=== PATIENT | female | born 1950 | race Caucasian/White ===

== ENCOUNTER 2016-04-08 09:44 | Inpatient (IN) | payer OTHER, BC ==
[~2016-04-08] VITALS: Ht 165.1 cm; Wt 96.6 kg
[~2016-04-08 09:44] MED LIST: ASPI81TA21 PO; ATOR-26 PO; CLB/200 PO; CLOP1TAB15 PO; CLR10 PO; EZET10TA63 PO; FLUO20CA35 PO; GLIP-197 PO; LANS30CA12 PO; METO1TAB69 PO; POTA20TA16 PO; PRM/45 PO; [UNRECOGNIZED DRUG - CODE] PO
[2016-04-08] MEDS ORDERED: MoRPHine SULFATE 4 MG/ML 1 ML CARP\\VIAL IV PRN (10:15)
[2016-04-08 10:18] LABS: BASO % 0.6 %; BASO ABS # 0.06 K/uL (0-0.2); COMPLETE YES; EOS % 1.8 %; HEMATOCRIT 34.3 % (37-47); IG% 0.7 %; LYMPH % 16.9 %; LYMPH ABS # 1.72 K/uL (1.2-3.4); MEAN CORPUSCULAR HGB CONC 34.4 g/dl (32-36); MEAN PLATELET VOLUME 12.1 fL (7.4-10.4); MONO % 7.7 %; NEUT % 72.3 %; PLATELET COUNT 234 K/uL (130-400); RED BLOOD COUNT 3.69 M/uL (4.2-5.4); WHITE BLOOD COUNT 10.15 K/uL (4.8-10.8)
[2016-04-08] MEDS ORDERED: LOSA100T66 PO (10:27)
[2016-04-08] MEDS ORDERED: PANTOprazole INJ 80 MG in DEXTROSE 5% 100ML IV SCH (10:30)
[2016-04-08 10:31] LABS: BUN/CREATININE RATIO 39.6 (10-20); CALCIUM 9.8 mg/dl (8.5-10.1); CREATININE 1.5 mg/dl (0.60-1.20); POTASSIUM 3.7 mmol/L (3.5-5.1)
[2016-04-08 10:33] LABS: PROTHROMBIN TIME (PATIENT) 10.7 SECONDS (9.0-12.0)
--- NOTE | 2016-04-08 10:43 | DIAGNOSTIC IMAGING REPORT ---
CHEST ONE VIEW PORTABLE CLINICAL HISTORY: Gastrointestinal hemorrhage COMPARISON STUDY: 12/26/2007 FINDINGS: The cardiac and mediastinal contours are normal. There is no evidence of focal pulmonary consolidation. There is no evidence of failure. No pleural effusions are visualized.[ No free air is visualized. IMPRESSION: No active disease in the chest. Electronically signed by: Logan Burnett M.D. 04/08/2016 10:42 AM Dictated Date/Time: 04/08/2016 10:41 AM
[2016-04-08] MEDS ORDERED: PANTOprazole INJ 40 MG in DEXTROSE 5% 100ML IV SCH (10:45)
--- NOTE | 2016-04-08 10:46 | EMERGENCY ROOM VISIT NOTE ---
History Report prepared by Silvia: Rayna Chatman Under the Supervision of: Dr. Germain Mchugh M.D. First contact with patient: 09:57 Chief Complaint: GI ASSESSMENT Stated Complaint: 4 TARRY STOOLS SINCE MIDNIGHT Nursing Triage Summary: Pt reports four tarry stools since midnight. Denies previous hx of same. Pt takes Plavix and ASA. Pt reports abd pain. Denies n/v. Mild sob, weak. History of Present Illness The patient is a 65 year old female who presents to the Emergency Room with complaints of persistently tarry stools starting last night. She also complains of right sided abdominal pain and a bloated abdomen. She denies any history of GI bleed. The patient is on Aspirin and Plavix. She denies fevers, chills, chest pain, shortness of breath, or any other complaints. Source of History: patient Onset: last night Position: other (global) Quality: other (tarry stools) Timing: other (persistent) Associated Symptoms: + abdominal pain, No SOB, No chest pain, No chills, No fevers Review of Systems See HPI for pertinent positives & negatives. A total of 10 systems reviewed and were otherwise negative. Past Medical & Surgical Medical Problems: (1) Acid reflux (2) Asthma (3) Depression (4) Diabetes (5) Heart disease (6) High cholesterol (7) Hypertension (8) Melena (9) Myocardial infarction Family History Patient reports no known family medical history. Social History Smoking Status: Never Smoker Marital Status: Occupation Status: retired Current/Historical Medications Scheduled Aspirin Enteric Coated (Ecotrin Or Generic), 81 MG PO DAILY Atorvastatin (Lipitor), 80 MG PO DAILY Celecoxib (CeleBREX), 200 MG PO DAILY Clopidogrel (Plavix), 75 MG PO DAILY Ezetimibe (Zetia), 10 MG PO DAILY Fluoxetine (Prozac), 20 MG PO DAILY Glipizide (Glipizide Er), 5 MG PO DAILY Loratadine (Claritin), 10 MG PO DAILY Losartan Potassium & Hydrochlo (Losartan Potassium/Hydroc), 1 TAB PO DAILY Metoprolol Succ (Toprol Xl) (Toprol-Xl ), 100 MG PO DAILY Potassium Ext Rel (Klor-Con), 20 MEQ PO DAILY Allergies Coded Allergies: Bae Pepper (Verified Allergy, Mild, RASH, 04/08/16) Physical Exam Vital Signs Date Time Temp Pulse Resp B/P Pulse Ox O2 Delivery O2 Flow Rate FiO2 04/08/16 13:24 73 04/08/16 13:04 95 Room Air 04/08/16 12:55 68 16 124/64 96 Room Air 04/08/16 11:32 79 20 147/85 97 Room Air 04/08/16 10:50 80 18 134/66 94 Room Air 04/08/16 10:20 90 04/08/16 09:48 36.9 96 18 145/82 97 Room Air Physical Exam CONSTITUTIONAL: No acute distress HEENT: No icterus, moist mucous membranes NECK: No meningismus, trachea is midline. CARDIOVASCULAR: Regular rate, normal perfusion RESPIRATORY: Unlabored breathing. Clear to auscultation. GASTROINTESTINAL: Non-tender GENITOURINARY: No flank tenderness RECTAL: Tarry stool clearly, grossly very heme positive. MUSCULOSKELETAL: Full range of motion NEUROLOGIC: No acute gross focal deficits. PSYCHIATRIC: Normal affect SKIN: Normal for ethnicity. Medical Decision & Procedures ER Provider Diagnostic Interpretation: X-ray results as stated below per interpretation by me and the radiologist. CHEST ONE VIEW PORTABLE CLINICAL HISTORY: Gastrointestinal hemorrhage COMPARISON STUDY: 12/26/2007 FINDINGS: The cardiac and mediastinal contours are normal. There is no evidence of focal pulmonary consolidation. There is no evidence of failure. No pleural effusions are visualized.[ No free air is visualized. IMPRESSION: No active disease in the chest. Electronically signed by: Logan Burnett M.D. 04/08/2016 10:42 AM Dictated Date/Time: 04/08/2016 10:41 AM Laboratory Results 04/08/16 09:58 Red Blood Count 3.69, Mean Corpuscular Volume 93.0, Mean Corpuscular Hemoglobin 32.0, Mean Corpuscular Hemoglobin Concent 34.4, Mean Platelet Volume 12.1, Neutrophils (%) (Auto) 72.3, Lymphocytes (%) (Auto) 16.9, Monocytes (%) (Auto) 7.7, Eosinophils (%) (Auto) 1.8, Basophils (%) (Auto) 0.6, Neutrophils # (Auto) 7.34, Lymphocytes # (Auto) 1.72, Monocytes # (Auto) 0.78, Eosinophils # (Auto) 0.18, Basophils # (Auto) 0.06 04/08/16 09:58 Test 04/08/16 09:58 04/08/16 10:10 White Blood Count 10.15 K/uL (4.8-10.8) Red Blood Count 3.69 M/uL (4.2-5.4) Hemoglobin 11.8 g/dL (12.0-16.0) Hematocrit 34.3 % (37-47) Mean Corpuscular Volume 93.0 fL (80-100) Mean Corpuscular Hemoglobin 32.0 pg (25-34) Mean Corpuscular Hemoglobin Concent 34.4 g/dl (32-36) Platelet Count 234 K/uL (130-400) Mean Platelet Volume 12.1 fL (7.4-10.4) Neutrophils (%) (Auto) 72.3 % Lymphocytes (%) (Auto) 16.9 % Monocytes (%) (Auto) 7.7 % Eosinophils (%) (Auto) 1.8 % Basophils (%) (Auto) 0.6 % Neutrophils # (Auto) 7.34 K/uL (1.4-6.5) Lymphocytes # (Auto) 1.72 K/uL (1.2-3.4) Monocytes # (Auto) 0.78 K/uL (0.11-0.59) Eosinophils # (Auto) 0.18 K/uL (0-0.5) Basophils # (Auto) 0.06 K/uL (0-0.2) RDW Standard Deviation 43.0 fL (36.4-46.3) RDW Coefficient of Variation 12.8 % (11.5-14.5) Immature Granulocyte % (Auto) 0.7 % Immature Granulocyte # (Auto) 0.07 K/uL (0.00-0.02) Prothrombin Time 10.7 SECONDS (9.0-12.0) Prothromb Time International Ratio 1.0 (0.9-1.1) Activated Partial Thromboplast Time 25.0 SECONDS (21.0-31.0) Partial Thromboplastin Ratio 1.0 Anion Gap 9.0 mmol/L (3-11) Est Creatinine Clear Calc Drug Dose 43.1 ml/min Estimated GFR () 41.6 Estimated GFR (Non- 35.9 BUN/Creatinine Ratio 39.6 (10-20) Calcium Level 9.8 mg/dl (8.5-10.1) Hepatitis C Antibody Screen NEG (NEG) Stool Occult Blood POSITIVE (NEGATIVE) Labs reviewed by ED physician. Medications Administered Medications (Trade) Dose Ordered Sig/Asia Route Start Time Stop Time Status Last Admin Dose Admin Pantoprazole Sodium 1 ea 1 ea NOW STAT IV 04/08/16 10:13 04/08/16 10:16 DC 04/08/16 10:48 1 EA Pantoprazole Sodium 80 mg/ Dextrose 120 ml @ 480 mls/hr TODAY@1030 IV 04/08/16 10:30 04/08/16 10:44 DC 04/08/16 10:48 480 MLS/HR Pantoprazole Sodium/Dextrose (Protonix Inj/D5 100ml) 100 ml @ 20 mls/hr Q5H IV 04/08/16 10:45 04/08/16 15:44 DC 04/08/16 11:15 20 MLS/HR Benzocaine/ Butamben/ Tetracaine HCl (Cetacaine Lyford) 200 appln STK-MED ONCE .ROUTE 04/08/16 11:21 04/08/16 11:23 DC 04/08/16 11:21 200 APPLN Ondansetron HCl (Zofran Inj) 4 mg NOW STAT IV 04/08/16 12:37 04/08/16 12:38 DC 04/08/16 12:52 4 MG ECG Indication: other (tarry stools) Rate (beats per minute): 84 Rhythm: sinus rhythm Findings: nonspecific-ST abn, no ectopy, other (normal axis) ED Course 0957: Past medical records reviewed. The patient was evaluated in room C09. A complete history and physical examination was performed. 1013: Pantoprazole Sodium 1 ea IV 1015: Morphine Sulfate 4 mg IV 1030: Pantoprazole Sodium 80 mg/Dextrose 120 ml @ 480 mls/hr IV 1045: Pantoprazole Sodium 40 mg/Dextrose 100 ml @ 20 mls/hr IV 1102: I discussed the patient's case with Dr. Mena, venipuncturist with [facility]. 1121: Cetacaine Lyford 200 appln PO 1131: NG tube is negative for upper GI bleed. 1237: Zofran Inj 4 mg IV 1255: Upon reexamination the patient is resting comfortably. I discussed results and treatment plan with the patient. She verbalizes agreement and understanding. I spoke with Dr. Vidal from the [facility]. The patient will be evaluated for further management. Medical Decision Differential diagnosis: Etiologies such as diverticulosis, AVM, coagulopathy, colitis, inflammatory bowel disease, malignancy, Blanche-Ibarra tear, esophagitis, peptic ulcer disease , variceal bleed, gastritis, epistaxis, fissure, hemorrhoids, as well as others were entertained. 65-year-old on aspirin and Plavix presents to the emergency room for dense melena over the last 12 hours. Stool very heme positive. NG tube placed without coffee grounds or bright red blood emesis subsequently removed. Protonix drip ordered patient management medically stable. Admission arranged with [facility] service and consultation obtained with gastroenterology for endoscopy. Consults Time Called: 1100 Consulting Physician: Dr. Mena, venipuncturist with [facility] Returned Call: 1102 I discussed the patient's case with Dr. Mena, venipuncturist with [facility]. Additional Consults: Time Called: 1254 Consulted Physician: Dr. Vidal from the [facility] Service Returned Call: 1255 Additional Comments: I spoke with Dr. Vidal from the [facility]. Impression Primary Impression: Upper GI bleed Critical Care I have personally spent greater than 30 minutes of critical care time in the direct management of this patient. This includes bedside care, interpretation of diagnostic studies, and testing, discussion with consultants, patient, and family members, and other required patient management activities. This 30 minutes is in excess of all separately billable procedures. Scribe Attestation The scribe's documentation has been prepared under my direction and personally reviewed by me in its entirety. I confirm that the note above accurately reflects all work, treatment, procedures, and medical decision making performed by me. Departure Information Dispostion Being Evaluated By Hospitalist Referrals Clint Boo M.D. (PCP) Patient Instructions My [facility]
[2016-04-08] MEDS ORDERED: BENZOCAIN/TETRACA/BUTAM SPRAY 200 APPLN/20 GM SPRY ONE (11:21)
[2016-04-08] MEDS ORDERED: ONDANSETRON INJ 2 MG/ML 2 ML VIAL IV STA (12:37)
--- NOTE | 2016-04-08 12:38 | GASTROINTESTINAL CONSULTATION ---
DATE OF CONSULTATION: 04/08/2016 DATE OF CONSULTATION: 04/08/2016. REASON FOR EVALUATION: Melena. HISTORY OF PRESENT ILLNESS: The patient is a 65-year-old with coronary disease, status post NM 10 years ago on baby aspirin and Plavix daily. She is on no gastric protective mechanisms but does take occasional Zantac if she gets some reflux which aggravates her asthma. She reports a little bit of epigastric and right upper quadrant pain. On a scale of 10 it is rated as a 3 that started a day or so ago. Last evening she began to experience melena. She has had 5 episodes. She reports no syncopal or presyncopal symptoms. Her stools are quite black and sticky. She has had no hematemesis, no previous history of ulcer disease. PAST MEDICAL HISTORY: Remarkable for coronary disease, status post NM with stent. She has had asthma, acid reflux, elevated lipids, diabetes. MEDICATIONS: Per list. ALLERGIES: None. FAMILY HISTORY: Noncontributory. SOCIAL HISTORY: The patient is . She is a retired nurse from [employer]. She does not smoke. Drinks alcohol rarely. REVIEW OF SYSTEMS: Negative for 12 systems. PHYSICAL EXAMINATION: GENERAL: The patient appears in no acute distress. VITAL SIGNS: Normal. She is afebrile. ABDOMEN: Shows low transverse scar from previous hysterectomy. Bowel sounds are normal. Mild tenderness in the epigastric area. No masses appreciated. LUNGS: Clear. HEART: Showed a normal S1 and S2 with regular rate and rhythm without murmurs, rubs, or gallops. IMPRESSION: The patient has melena probably from an ulcer in the stomach or duodenum from her aspirin bleeding potentiated by Plavix. She is currently getting IV Protonix. I plan on scheduling her for an EGD later today for further evaluation. Plavix will be held in the meantime.
[2016-04-08 13:04] VITALS: O2SAT 95; Ht 165.1 cm; Wt 96.6 kg
[2016-04-08] MEDS ORDERED: ACETAMINOPHEN 325 MG TAB PO PRN (13:45)
[2016-04-08] MEDS ORDERED: ONDANSETRON INJ 2 MG/ML 2 ML VIAL IV PRN (13:45)
[2016-04-08] MEDS ORDERED: GLUCOSE 40% GEL 15 GM TUBE PO PRN (13:45)
[2016-04-08] MEDS ORDERED: DEXTROSE 50% 50 ML SYR IV PRN (13:45)
[2016-04-08] MEDS ORDERED: GLUCAGON FOR INJ 1 MG VIAL SQ PRN (13:45)
[2016-04-08] MEDS ORDERED: GLUCOSE 10 TABS/TUBE PO PRN (13:45)
[2016-04-08] MEDS ORDERED: POLYETHYLENE (MIRALAX) 17 GM PACK PO PRN (13:45)
[2016-04-08] MEDS ORDERED: MAGNESIUM HYDROXIDE SUSP 30 ML UDC PO PRN (13:45)
[2016-04-08] MEDS ORDERED: ALUMINUM/MAGNESIUM/SIMETH (MAALOX MAX) 30 ML UDC PO PRN (13:45)
[2016-04-08] MEDS ORDERED: HydrALAZINE HCL 20 MG/ML VIAL IV. PRN (14:00)
[2016-04-08] MEDS ORDERED: HYDROCORTISONE 1% CR 30 GM TUBE EXT PRN (14:00)
--- NOTE | 2016-04-08 14:02 | History and Physical ---
History & Physical Date & Time of Service: Apr 08, 2016 at 13:50 Chief Complaint: 4 Tarry Stools Since Midnight Primary Care Physician: Clint Boo M.D. History of Present Illness Source: patient, spouse Ms Lopez is a 65 y/o female with PMHx of CAD with VT and S/P Stent x 1, T2DM, HLD, HTN, Asthma, and Hemorrhoids who presents to the ED c/o dark tarry stools that started last night. She repeats RUQ pain that extends to the epigastric region that initially felt sharp but now is more of an ache. She reports associated bloating distention throughout her abdomen. She has had a total of 5 melanotic BMs. She currently take Celebrex, ASA, and Plavix daily. She does take Zantac PRN but only for heartburn symptoms and not prophylactic treatment. She denies H/O PUD. She reports some VILLAFANA while showering PHYS THER but otherwise no complaints of SOB. Reports in February she had sinusitis that required prolonged antibiotic use but all symptoms resolved. She does report history of blood clot in her leg with many years prior but denies other blood clots or PEs. She denies fever/chills, CP, SOB, N/V, diarrhea/constipation, hematochezia. In the ED, she is afebrile without leukocytosis. She is hemodynamically stable. EKG with NSR without evidence of acute ischemic changes. CXR without evidence of an infectious process. She was evaluated by GI with plans for endoscopy today. She will be admitted to telemetry following EGD for further evaluation and care. Past Medical/Surgical History Medical Problems: (1) Acid reflux Status: Chronic (2) Asthma Status: Chronic (3) Depression Status: Chronic (4) Diabetes Status: Chronic (5) Heart disease Status: Chronic (6) High cholesterol Status: Chronic (7) Hypertension Status: Chronic (8) Myocardial infarction Status: Resolved Family History Patient reports no known family medical history. Social History Smoking Status: Never Smoker Smokeless Tobacco Use: No Alcohol Use: socially Drug Use: none Marital Status: Occupational Status: retired Multi-Drug Resistant Organisms History of MDRO: No Allergies Coded Allergies: Bae Pepper (Verified Allergy, Mild, RASH, 04/08/16) Home Medications Scheduled Aspirin Enteric Coated (Ecotrin Or Generic), 81 MG PO DAILY Atorvastatin (Lipitor), 80 MG PO DAILY Celecoxib (CeleBREX), 200 MG PO DAILY Clopidogrel (Plavix), 75 MG PO DAILY Ezetimibe (Zetia), 10 MG PO DAILY Fluoxetine (Prozac), 20 MG PO DAILY Glipizide (Glipizide Er), 5 MG PO DAILY Loratadine (Claritin), 10 MG PO DAILY Losartan Potassium & Hydrochlo (Losartan Potassium/Hydroc), 1 TAB PO DAILY Metoprolol Succ (Toprol Xl) (Toprol-Xl ), 100 MG PO DAILY Potassium Ext Rel (Klor-Con), 20 MEQ PO DAILY Review of Systems Constitutional: No chills, No fever Eyes: No worsening of vision ENT: No sore throat, No trouble swallowing Respiratory: + dyspnea on exertion (resolved ), No cough, No shortness of breath Cardiovascular: No chest pain Abdomen: + GI bleeding (melena x 5 episodes), + pain (RUQ and epigastric tenderness and distention), No constipation, No diarrhea, No nausea, No vomiting Musculoskeletal: No calf pain, No swelling Genitourinary - Female: No dysuria Neurologic: No weakness Hematologic / Lymphatic: No abnormal bleeding/bruising, No clotting problems Integumentary: No rash Physical Exam Vital Signs Date Time Temp Pulse Resp B/P Pulse Ox O2 Delivery O2 Flow Rate FiO2 04/08/16 13:24 73 04/08/16 13:04 95 Room Air 04/08/16 12:55 68 16 124/64 96 Room Air 04/08/16 11:32 79 20 147/85 97 Room Air 04/08/16 10:50 80 18 134/66 94 Room Air 04/08/16 10:20 90 04/08/16 09:48 36.9 96 18 145/82 97 Room Air General Appearance: WD/WN, no apparent distress Head: normocephalic, atraumatic Eyes: sclerae normal ENT: hearing grossly normal Neck: supple, no JVD, trachea midline Respiratory/Chest: lungs clear, normal breath sounds, no respiratory distress, no accessory muscle use Cardiovascular: regular rate, rhythm, no gallop, no murmur Abdomen/GI: normal bowel sounds, soft, + tenderness (epigastric region) Back: normal inspection, no CVA tenderness Extremities/Musculoskelatal: no calf tenderness, no pedal edema Neurologic/Psych: alert, oriented x 3 Skin: normal color, warm/dry Diagnostics Laboratory Results Results Past 24 Hours Test 04/08/16 09:58 04/08/16 10:10 Range/Units White Blood Count 10.15 4.8-10.8 K/uL Red Blood Count 3.69 4.2-5.4 M/uL Hemoglobin 11.8 12.0-16.0 g/dL Hematocrit 34.3 37-47 % Mean Corpuscular Volume 93.0 80-100 fL Mean Corpuscular Hemoglobin 32.0 25-34 pg Mean Corpuscular Hemoglobin Concent 34.4 32-36 g/dl Platelet Count 234 130-400 K/uL Mean Platelet Volume 12.1 7.4-10.4 fL Neutrophils (%) (Auto) 72.3 % Lymphocytes (%) (Auto) 16.9 % Monocytes (%) (Auto) 7.7 % Eosinophils (%) (Auto) 1.8 % Basophils (%) (Auto) 0.6 % Neutrophils # (Auto) 7.34 1.4-6.5 K/uL Lymphocytes # (Auto) 1.72 1.2-3.4 K/uL Monocytes # (Auto) 0.78 0.11-0.59 K/uL Eosinophils # (Auto) 0.18 0-0.5 K/uL Basophils # (Auto) 0.06 0-0.2 K/uL RDW Standard Deviation 43.0 36.4-46.3 fL RDW Coefficient of Variation 12.8 11.5-14.5 % Immature Granulocyte % (Auto) 0.7 % Immature Granulocyte # (Auto) 0.07 0.00-0.02 K/uL Prothrombin Time 10.7 9.0-12.0 SECONDS Prothromb Time International Ratio 1.0 0.9-1.1 Activated Partial Thromboplast Time 25.0 21.0-31.0 SECONDS Partial Thromboplastin Ratio 1.0 Sodium Level 142 136-145 mmol/L Potassium Level 3.7 3.5-5.1 mmol/L Chloride Level 108 98-107 mmol/L Carbon Dioxide Level 25 21-32 mmol/L Anion Gap 9.0 3-11 mmol/L Blood Urea Nitrogen 59 7-18 mg/dl Creatinine 1.50 0.60-1.20 mg/dl Est Creatinine Clear Calc Drug Dose 43.1 ml/min Estimated GFR () 41.6 Estimated GFR (Non- 35.9 BUN/Creatinine Ratio 39.6 10-20 Random Glucose 273 70-99 mg/dl Calcium Level 9.8 8.5-10.1 mg/dl Stool Occult Blood POSITIVE NEGATIVE Diagnostic Radiology CHEST ONE VIEW PORTABLE CLINICAL HISTORY: Gastrointestinal hemorrhage COMPARISON STUDY: 12/26/2007 FINDINGS: The cardiac and mediastinal contours are normal. There is no evidence of focal pulmonary consolidation. There is no evidence of failure. No pleural effusions are visualized.[ No free air is visualized. IMPRESSION: No active disease in the chest. EKG Poor data quality, interpretation may be adversely affected Normal sinus rhythm Nonspecific ST abnormality Abnormal ECG When compared with ECG of 26-DEC-2007 16:50, No significant change was found Impression Assessment and Plan Ms Lopez is a 65 y/o female with PMHx of CAD with VT and S/P Stent x 1, T2DM, HLD, HTN, Asthma, and Hemorrhoids with melena x 5 episodes. EGD on 04/08/16 Melena: Likely Peptic Ulcer/Duodenal Ulcer: - Likely this is due to the Celebrex and ASA combination with the addition of Plavix - Protonix gtt - Hold ASA, Celebrex, and Plavix - GI Following - EGD today HTN: - Hold Losartan/HCTZ - Metoprolol Succ 100 mg daily - Hydralazine 10 mg IV PRN T2DM: - Glipizide 5 mg daily when diet added - SSI goal range 100-150 with correction factor 35 CAD with VT S/P Stent x 1: - Hold ASA and Plavix - Atorvastatin 80 mg daily - Zetia 10 mg daily DVT Prophylaxis: - KIERSTEN/SCDs Disposition: - Plan for EGD ASA Classification: ASA Class III Level of Care Telemetry Advanced Directives Existing Living Will: No Existing Power of Advertising Sales Consultant: No Resuscitation Status FULL RESUSCITATION VTE Prophylaxis VTE Risk Assessment Done? Y/N: Yes Risk Level: Moderate Given or contraindicated: T.E.D. Stockings, SCD's
--- NOTE | 2016-04-08 14:16 | Endo History and Physical ---
History & Physical Date of Service: Apr 08, 2016. Chief Complaint: Melena Referring Physician: Dr. Boo History of Present Illness Melena for EGD Past Surgical History Hx Cardiac Surgery: Yes (Stent (2004)) Hx Internal Defibrillator: No Hx Pacemaker: No Hx Abdominal Surgery: No Hx Post-Op Nausea and Vomiting: No Hx Cancer Surgery: No Hx Thoracic Surgery: No Hx Orthopedic: No Hx Urinary Tract Surgery: No Social History Smoking Status: Never Smoker Smokeless Tobacco Use: No Hx Substance Use: No Hx Alcohol Use: Yes (Wine: Occasional) Allergies Coded Allergies: Bae Pepper (Verified Allergy, Mild, RASH, 04/08/16) Current Medications Reported Home Medications Medications Dose Route/Sig Max Daily Dose Days Date Category Dose Instructions Losartan Potassium/Hydroc (Losartan Potassium & Hydrochlo) 1 Tab Tab 1 Tab PO DAILY 90 04/08/16 Reported 100/12.5MG Claritin (Loratadine) 10 Mg Tab 10 Mg PO DAILY 07/11/13 Reported Zetia (Ezetimibe) 10 Mg Tab 10 Mg PO DAILY 07/10/13 Reported Glipizide Er (Glipizide) 5 Mg Tab 5 Mg PO DAILY 07/10/13 Reported CeleBREX (Celecoxib) 200 Mg Cap 200 Mg PO DAILY 07/10/13 Reported Ecotrin Or Generic (Aspirin) 81 Mg Tab 81 Mg PO DAILY 07/10/13 Reported Plavix (Clopidogrel Bisulfate) 75 Mg Tab 75 Mg PO DAILY 01/10/08 Reported Prozac (Fluoxetine HCl) 20 Mg Cap 20 Mg PO DAILY 01/10/08 Reported Lipitor (Atorvastatin Calcium) 80 Mg Tab 80 Mg PO DAILY 01/10/08 Reported Klor-Con (Potassium Chloride) 20 Meq Tabcr 20 Meq PO DAILY 01/10/08 Reported Toprol-Xl (Metoprolol Succinate) 100 Mg Tabcr 100 Mg PO DAILY 01/10/08 Reported Vital Signs Weight (Kilograms): 99.700 Height (Feet): 5 Height (Inches): 5.00 Date Time Temp Pulse Resp B/P Pulse Ox O2 Delivery O2 Flow Rate FiO2 04/08/16 13:54 75 16 130/56 97 Room Air 04/08/16 13:24 73 04/08/16 13:04 95 Room Air 04/08/16 12:55 68 16 124/64 96 Room Air 04/08/16 11:32 79 20 147/85 97 Room Air 04/08/16 10:50 80 18 134/66 94 Room Air 04/08/16 10:20 90 04/08/16 09:48 36.9 96 18 145/82 97 Room Air Physical Exam General Appearance: WD/WN Respiratory/Chest: Respiratory effort: no dyspnea Cardiovascular: Heart Auscultation: RRR Abdomen: Bowel Sounds: pertinent finding (Transverse scar) Inspection & Palpation: soft Assessment and Plan Melena for EGD
--- NOTE | 2016-04-08 14:35 | Discharge Instructions ---
Endoscopy Patient Instructions Date / Procedure(s) Performed Apr 08, 2016. EGD Allergy Information Coded Allergies: Bae Pepper (Verified Allergy, Mild, RASH, 04/08/16) Discharge Date / Findings Apr 08, 2016. Antral ulcers Medication Instructions Restart Stopped Medication(s): resume meds Current Inpatient Medications Medications (Trade) Dose Ordered Sig/Asia Route Start Time Stop Time Status Last Admin Dose Admin Morphine Sulfate 4 mg 4 mg ONE PRN IV 04/08/16 10:15 04/22/16 10:14 Pantoprazole Sodium/Dextrose (Protonix Inj/D5 100ml) 100 ml @ 20 mls/hr Q5H IV 04/08/16 10:45 04/08/16 15:44 04/08/16 11:15 20 MLS/HR Acetaminophen (Tylenol Tab) 650 mg Q4H PRN PO 04/08/16 13:45 05/08/16 13:44 Al Hydrox/Mg Hydrox/Simethicone (Maalox Max Susp) 15 ml Q4H PRN PO 04/08/16 13:45 05/08/16 13:44 Magnesium Hydroxide (Milk Of Magnesia Susp) 30 ml Q12H PRN PO 04/08/16 13:45 05/08/16 13:44 UNV Ondansetron HCl (Zofran Inj) 4 mg Q6H PRN IV 04/08/16 13:45 05/08/16 13:44 Polyethylene (Miralax Powder Packet) 17 gm DAILY PRN PO 04/08/16 13:45 05/08/16 13:44 Insulin Aspart (novoLOG ASPART) SLIDING SCALE If C... ACHS SC 04/08/16 16:00 05/08/16 15:59 UNV Glucose (Glucose 40% Gel) 15-30 GRAMS 15 GRAMS... UD PRN PO 04/08/16 13:45 05/08/16 13:44 Glucose (Glucose Chew Tab) 4-8 Tablets 4 Tabl... UD PRN PO 04/08/16 13:45 05/08/16 13:44 Dextrose (Dextrose 50% 50ML Syringe) 25-50ML OF 50% DW IV FOR... UD PRN IV 04/08/16 13:45 05/08/16 13:44 Glucagon (Glucagon Inj) 1 mg UD PRN SQ 04/08/16 13:45 05/08/16 13:44 Atorvastatin Calcium (Lipitor Tab) 80 mg DAILY PO 04/09/16 09:00 05/09/16 08:59 UNV EZETIMIBE (Zetia Tab) 10 mg DAILY PO 04/09/16 09:00 05/09/16 08:59 UNV Fluoxetine HCl (Prozac Cap) 20 mg DAILY PO 04/09/16 09:00 05/09/16 08:59 UNV Glipizide (GlipiZIDE EXTENDED REL TAB) 5 mg DAILY PO 04/09/16 09:00 05/09/16 08:59 UNV Loratadine (Claritin Tab) 10 mg DAILY PO 04/09/16 09:00 05/09/16 08:59 UNV Metoprolol Succinate (Toprol Xl Tab) 100 mg DAILY PO 04/09/16 09:00 05/09/16 08:59 UNV Potassium Chloride (Klor-Con Tab) 20 meq DAILY PO 04/09/16 09:00 05/09/16 08:59 UNV Hydralazine HCl (HydrALAZINE INJ) 10 mg Q6 PRN IV. 04/08/16 14:00 05/08/16 13:59 UNV Hydrocortisone 1 appln 1 appln Q6H PRN EXT 04/08/16 14:00 05/08/16 13:59 UNV Pantoprazole Sodium/Dextrose (Protonix Inj/D5 100ml) 100 ml @ 20 mls/hr Q5H IV 04/08/16 14:15 05/08/16 14:14 UNV Provider Instructions Activity Restrictions - No exercising or heavy lifting for 24 hours. - Do not drink alcohol the day of the procedure. - Do not drive a car or operate machinery until the day after the procedure. - Do not make any important decisions or sign important papers in 24 hours after the procedure. Following Day: - Return to full activity which may include returning to work/school. Diet Start your diet with liquids and light foods (jello, soup, juice, toast). Then eat your usual diet if not nauseated. Treatment For Common After Affects For mild abdominal pain, bloating, or excessive gas: - Rest - Eat lightly - Lie on right side Follow-Up Information Follow-up with as scheduled Anesthesia Information What You Should Know You have had a procedure that required some medicine to reduce anxiety and discomfort. This treatment is called moderate sedation. After receiving the treatment, you may be sleepy, but you will be able to breathe on your own. The effects of the treatment may last for several hours. Follow these instructions along with Activity/Diet recommendations noted above: * Do NOT do anything where dizziness or clumsiness would be dangerous. * Rest quietly at home today, then you can be up and about tomorrow. * Have a responsible person stay with you the rest of today. * You may have had an I.V. today. If so, you may take the dressing off later today. Recommendations Call your doctor if: * Trouble breathing * Continuous vomiting for more than 24 hours * Temperature above 101 degrees * Severe abdominal pain or bloating * Pain not relieved by pain medicine ordered * There is increased drainage or redness from any incision * A large amount of rectal bleeding greater than 2-3 tablespoons. (If you had a polyp/s removed or have hemorrhoids, a small amount of blood - from the rectum is to be expected.) * You have any unanswered questions or concerns. IN THE EVENT OF A SERIOUS EMERGENCY, GO TO THE NEAREST EMERGENCY ROOM Your discharge instructions were prepared by provider Jorge A Sherwood. Patient Instructions Signature Page Lashay Lopez Patient (or Guardian) Signature/Date: I have read and understand the instructions given to me by my caregivers. Caregiver/RN/Doctor Signature/Date: The above-named patient and/or guardian has received patient instructions on this date. + Original Patient Signature Page (only) stays with chart. Please make copy for patient.
--- NOTE | 2016-04-08 14:39 | GI REPORT ---
Procedure Date: 04/08/2016 2:27 PM Procedure: Upper GI endoscopy Indications: Melena Medicines: Propofol total dose 200 mg IV, Lidocaine 40 mg IV Complications: No immediate complications. Estimated Blood Loss: Estimated blood loss: none. Procedure: Pre-Anesthesia Assessment: - Prior to the procedure, a History and Physical was performed, and patient medications, allergies and sensitivities were reviewed. The patient's tolerance of previous anesthesia was reviewed. - The risks and benefits of the procedure and the sedation options and risks were discussed with the patient. All questions were answered and informed consent was obtained. After obtaining informed consent, the endoscope was passed under direct vision. Throughout the procedure, the patient's blood pressure, pulse, and oxygen saturations were monitored continuously. The On-site loaner was introduced through the mouth, and advanced to the second part of duodenum. The upper GI endoscopy was accomplished without difficulty. The patient tolerated the procedure well. Findings: The examined esophagus was normal. Many non-bleeding superficial gastric ulcers with no stigmata of bleeding were found in the gastric antrum. The largest lesion was 4 mm in largest dimension. The examined duodenum was normal. Impression: - Normal esophagus. - Non-bleeding gastric ulcers with no stigmata of bleeding. - Normal examined duodenum. - No specimens collected. Recommendation: - [facility]. - Full liquid diet today. - Use Protonix (pantoprazole) 40 mg IV daily today. Jorge A Sherwood M.D. Jorge A Sherwood MD 04/08/2016 2:39:19 PM This report has been signed electronically. Note Initiated On: 04/08/2016 2:27 PM I attest to the content of the Intraoperative Record and orders documented therein, exceptions below
--- NOTE | 2016-04-08 14:52 | PROGRESS NOTE ---
DATE: 04/08/2016 DATE: 04/08/2016. SUBJECTIVE: The patient underwent an EGD today. She tolerated it well, her esophagus and duodenum were normal. She did have several small superficial ulcerations in the gastric antrum. There was no visible bleeding and all the ulcer bases were clean. No therapeutic intervention was necessary. IMPRESSION: The patient presents with melena with mild anemia. EGD shows multiple superficial antral ulcers. She is on aspirin, Plavix and Celebrex. I would recommend that the patient's Plavix be held for a week. She can continue the other medications and add a proton pump inhibitor on a daily basis for gastric protection. She can hopefully resume the Plavix over 1 week and start on a bland diet this afternoon and if she is tolerating solid food and has no further signs of bleeding tomorrow she may be able to be discharged tomorrow.
--- NOTE | 2016-04-08 15:11 | Anesthesiology Progress Note ---
Anesthesia Post Op Note Date & Time Apr 08, 2016 at 15:11 Vital Signs Pain Intensity: 0.0 Vital Signs Past 12 Hours Date Time Temp Pulse Resp B/P Pulse Ox O2 Delivery O2 Flow Rate FiO2 04/08/16 14:55 78 20 144/65 97 Room Air 04/08/16 14:40 76 16 130/61 99 Room Air 04/08/16 14:14 36.9 80 16 143/57 95 Room Air 04/08/16 13:54 75 16 130/56 97 Room Air 04/08/16 13:24 73 04/08/16 13:04 95 Room Air 04/08/16 12:55 68 16 124/64 96 Room Air 04/08/16 11:32 79 20 147/85 97 Room Air 04/08/16 10:50 80 18 134/66 94 Room Air 04/08/16 10:20 90 04/08/16 09:48 36.9 96 18 145/82 97 Room Air Notes Mental Status: alert / awake / arousable, participated in evaluation Pt Amnestic to Procedure: Yes Nausea / Vomiting: adequately controlled Pain: adequately controlled Airway Patency, RR, SpO2: stable & adequate BP & HR: stable & adequate Hydration State: stable & adequate Anesthetic Complications: no major complications apparent
[2016-04-08 16:12] VITALS: BP 129/44; PULSE 82; TEMP 36.8; O2SAT 95
[2016-04-08 16:16] VITALS: O2SAT 95
[2016-04-08] MEDS: PANTOprazole INJ 40 MG in DEXTROSE 5% 100ML 90 ML IV SCH ×2 (17:23→23:43)
[2016-04-08] MEDS: INSULIN ASPART 100 UNITS/ML 3 ML PEN SC SCH ×2 (17:24→20:18)
[2016-04-08 18:59] LABS: HEMATOCRIT 28.2 % (37-47)
[2016-04-08 20:01] VITALS: BP 138/69; PULSE 79; TEMP 36.7; O2SAT 93
[2016-04-08] MEDS ORDERED: INSULIN ASPART 100 UNITS/ML 3 ML PEN SC ONE (20:45)
[2016-04-08] MEDS ORDERED: NURSING VERBAL MED ORDER ONE (20:45)
[2016-04-08 23:47] VITALS: BP 109/58; PULSE 77; TEMP 36.6; O2SAT 94
[2016-04-09] MEDS: PANTOprazole INJ 40 MG in DEXTROSE 5% 100ML 90 ML IV SCH (02:15)
[2016-04-09 03:39] VITALS: BP 121/38; PULSE 75; TEMP 36.5; O2SAT 92
[2016-04-09 06:05] LABS: BASO % 0.2 %; BASO ABS # 0.01 K/uL (0-0.2); IG% 0.3 %; LYMPH ABS # 0.92 K/uL (1.2-3.4); MEAN CELL VOLUME 93.5 fL (80-100); MEAN CORPUSCULAR HEMOGLOBIN 31.7 pg (25-34); MEAN CORPUSCULAR HGB CONC 33.8 g/dl (32-36); MEAN PLATELET VOLUME 11.9 fL (7.4-10.4); MONO % 5.9 %; NEUT % 79.6 %; PLATELET COUNT 175 K/uL (130-400); RED BLOOD COUNT 2.78 M/uL (4.2-5.4); WHITE BLOOD COUNT 6.56 K/uL (4.8-10.8)
[2016-04-09 06:33] LABS: BUN/CREATININE RATIO 28.8 (10-20); CALCIUM 9.1 mg/dl (8.5-10.1); CREATININE 1.4 mg/dl (0.60-1.20)
[2016-04-09 06:51] LABS: COMPLETE YES
[2016-04-09] MEDS: INSULIN ASPART 100 UNITS/ML 3 ML PEN SC SCH ×2 (07:00→11:00)
[2016-04-09 08:01] VITALS: BP 134/53; PULSE 77; TEMP 36.5; O2SAT 94
[2016-04-09] MEDS: FLUOXETINE HCL 20 MG CAP PO SCH ×2 (08:07→11:50)
[2016-04-09] MEDS: POTASSIUM CHLORIDE 20 MEQ TABCR PO SCH ×2 (08:08→11:50)
[2016-04-09] MEDS: LORATADINE 10 MG TAB PO SCH ×2 (08:08→11:50)
[2016-04-09] MEDS: GlipiZIDE 5 MG TABCR (GLUCOTROL XL) PO SCH ×2 (08:08→11:50)
[2016-04-09] MEDS: EZETIMIBE 10MG TAB PO SCH ×2 (08:08→11:50)
[2016-04-09] MEDS: METOPROLOL SUCC 50MG EXT REL TAB PO SCH ×2 (08:08→11:50)
[2016-04-09] MEDS: ATORVASTATIN 40 MG TAB PO SCH ×2 (08:08→11:50)
[2016-04-09] MEDS ORDERED: PANT40TA PO (09:36)
[2016-04-09] MEDS ORDERED: PANTOprazole SOD 40 MG TAB PO STA (09:41)
--- NOTE | 2016-04-09 09:41 | Discharge Instructions ---
Discharge Instructions Admission Reason for Admission: Melena, Upper Gi Bleed Discharge Discharge Diagnosis / Problem: Gasric ulcers, superficial, acute blood loss anemia Discharge Goals Goal(s): Improve function, Diagnostic testing (repeat CBC) Activity Recommendations Activity Limitations: resume your previous activity Lifting Limitations: none Exercise/Sports Limitations: as tolerated May Resume Sexual Activity: when tolerated Shower/Bathe: no limitations Driving or Machine Use: no limitations . Instructions / Follow-Up Instructions / Follow-Up Medications: - PROTONIX: take 40mg once a day indefinitely, this is for gastric protection while on Celebrex and Aspirin - PLAVIX: hold for one week, can resume on 04/16/16 - ASPIRIN and CELEBREX: Dr. Sherwood is okay with you continuing these medications on discharge You will get a CBC on Monday or Monday with results to Dr. Boo to check your hemoglobin FOLLOW UP - Dr. Boo on 04/14 as previously scheduled, discuss this admission and elevated blood sugars Current Hospital Diet Patient's current hospital diet: AHA Diet (Heart Healthy), Diabetes Type 2 Diet Discharge Diet Recommended Diet: AHA Diet (Heart Healthy), Diabetes Type 2 Diet Procedures Procedures Performed: EGD Pending Studies Studies pending at discharge: no Laboratory Results Last Resulted CBC 04/09/16 05:40 Red Blood Count 2.78, Mean Corpuscular Volume 93.5, Mean Corpuscular Hemoglobin 31.7, Mean Corpuscular Hemoglobin Concent 33.8, Mean Platelet Volume 11.9, Neutrophils (%) (Auto) 79.6, Lymphocytes (%) (Auto) 14.0, Monocytes (%) (Auto) 5.9, Eosinophils (%) (Auto) 0.0, Basophils (%) (Auto) 0.2, Neutrophils # (Auto) 5.22, Lymphocytes # (Auto) 0.92, Monocytes # (Auto) 0.39, Eosinophils # (Auto) 0.00, Basophils # (Auto) 0.01 Last Resulted BMP 04/09/16 05:40 Lipid Panel Test 01/11/16 12:12 Range/Units Triglycerides Level 143 0-150 mg/dl Cholesterol Level 144 0-200 mg/dl HDL Cholesterol 54 mg/dl Cholesterol/HDL Ratio 2.7 LDL Cholesterol, Calculated 61 mg/dl Medical Emergencies . Who to Call and When: Medical Emergencies: If at any time you feel your situation is an emergency, please call 911 immediately. . Non-Emergent Contact Non-Emergency issues call your: Primary Care Provider Call Non-Emergent contact if: you have a fever, your pain is worsening, you have any medication questions . . "Provider Documentation" section prepared by Pan Kilpatrick. VTE Core Measure Inpt VTE Proph given/why not?: [facility] [place] [facility] Search Results: no issues identified
--- NOTE | 2016-04-09 11:56 | Discharge Summary ---
Discharge Summary Admission Date: Apr 08, 2016 at 13:44 Discharge Date: Apr 09, 2016 Discharge Disposition: Home Principal Diagnosis: Upper GI bleed due to gastric ulcers Problems/Secondary Diagnoses: Acute blood loss anemia CAD with h/o stent x 1 Hyperlipidemia Procedures: EGD 04/08 - numerous clean based gastric ulcers, no active bleeding, largest ulcer only 4mm Consultations: Gastroenterology - Dr. Sherwood Medication Reconciliation New Medications: Pantoprazole (Protonix) 40 Mg Tab 40 MG PO DAILY, #30 TAB 3 Refills Continued Medications: Aspirin Enteric Coated (Ecotrin Or Generic) 81 Mg Tab 81 MG PO DAILY, TAB Atorvastatin (Lipitor) 80 Mg Tab 80 MG PO DAILY Celecoxib (CeleBREX) 200 Mg Cap 200 MG PO DAILY, CAP Ezetimibe (Zetia) 10 Mg Tab 10 MG PO DAILY, TAB Fluoxetine (Prozac) 20 Mg Cap 20 MG PO DAILY Glipizide (Glipizide Er) 5 Mg Tab 5 MG PO DAILY Loratadine (Claritin) 10 Mg Tab 10 MG PO DAILY, TAB Losartan Potassium & Hydrochlo (Losartan Potassium/Hydroc) 1 Tab Tab 1 TAB PO DAILY for 90 Days, #90 TAB 3 Refills 100/12.5MG Metoprolol Succ (Toprol Xl) (Toprol-Xl ) 100 Mg Tabcr 100 MG PO DAILY Potassium Ext Rel (Klor-Con) 20 Meq Tabcr 20 MEQ PO DAILY Discontinued Medications: Clopidogrel (Plavix) 75 Mg Tab 75 MG PO DAILY Discharge Exam Patient feeling well, no further melanotic stools since admission, no bowel movements at all actually. Tolerating light diet. No vomiting. Admits that she is still fatigued and dyspnea on exertion but feels like she is well enough to go home. Review of Systems: Constitutional: + fatigue, + weakness, No chills, No fever, No problem reported, No sweats, No weight loss Eyes: No diplopia, No discharge, No eye pain, No problem reported, No redness, No worsening of vision ENT: No dental problems, No hearing loss, No nasal symptoms, No problem reported, No sore throat, No tinnitus, No trouble swallowing, No unusual epistaxis Respiratory: + dyspnea on exertion, No cough, No dyspnea at rest, No hemoptysis, No problem reported, No shortness of breath, No sputum, No wheezing Cardiovascular: No PND, No chest pain, No claudication, No edema, No orthopnea, No palpitations, No problem reported Abdomen: No GI bleeding, No constipation, No diarrhea, No nausea, No pain, No problem reported, No vomiting Musculoskeletal: No calf pain, No joint pain, No muscle pain, No problem reported, No swelling Genitourinary - Female: No dysuria, No urinary frequency, No urinary incontinence, No urinary urgency Neurologic: No balance problems, No memory loss, No numbness/tingling, No paralysis, No problem reported, No vertigo, No weakness Psychiatric: No anhedonism, No anxiety, No depression symptoms, No insomnia , No problem reported, No substance abuse Endocrine: No excessive thirst, No excessive urination, No fatigue, No problem reported Hematologic / Lymphatic: No abnormal bleeding/bruising, No clotting problems , No night sweats, No problem reported, No swollen lymph nodes Integumentary: No bleeding, No color change, No itch, No new/changing skin lesions, No problem reported, No rash Physical Exam: General Appearance: WD/WN, no apparent distress Eyes: normal inspection, EOMI, sclerae normal ENT: normal ENT inspection, hearing grossly normal, pharynx normal Neck: supple, no adenopathy, no JVD, trachea midline Respiratory/Chest: chest non-tender, lungs clear, normal breath sounds, no respiratory distress, no accessory muscle use Cardiovascular: regular rate, rhythm, no edema, no gallop, no JVD, no murmur , normal peripheral pulses Abdomen / GI: normal bowel sounds, non tender, soft, no organomegaly Extremities: normal inspection, no calf tenderness, normal capillary refill , no pedal edema, normal range of motion, pelvis stable 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 No history of GI bleeding. Recently returned from [place] with , did not ingest anything local. She takes Celebrex, aspirin and Plavix. Also, she had been on Prednisone in February for URI and bronchitis. Her vitals were stable, Hb was 11.8. She was made NPO, started on Protonix IV and taken to endoscopy in the afternoon. EGD by Dr. Sherwood showed numerous gastric ulcers, 4mm was largest, all clean based and no signs of bleeding. Returned to telemetry, tolerated diet , stable over night. Hb did drop to 8.8 in the morning which would be expected , no further melanotic stools. - Upper GI bleed due to gastric ulcers: EGD shows numerous superficial ulcers, largest 4mm, no active bleeding d/c home on Protonix 40mg daily, safe to continue aspirin and Celebrex per GI hold Plavix x 1 week and resume on 04/16 low residue diet for a few days but then advance as tolerated - Acute blood loss anemia: Hb dropped from 11.8 to 8.8 which is expected mild symptoms with fatigue and VILLAFANA, but she reports that she feels better overall compared to yesterday check CBC this week with results to Dr. Boo HTN: BP stable - Losartan/HCTZ - Metoprolol Succ 100 mg daily T2DM: - Glipizide 5 mg daily - SSI goal range 100-150 with correction factor 35 - sugars elevated at times, as high as 370 - she reports that they have been difficult to control, going to discuss with Dr. Boo CAD with RI S/P Stent x 1: stable, no chest pain while admitted - Hold Plavix x 1 week, resume aspirin on discharge - Atorvastatin 80 mg daily - Zetia 10 mg daily DVT Prophylaxis: - KIERSTEN/SCDs Total Time Spent: Greater than 30 minutes This includes examination of the patient, discharge planning, medication reconciliation, and communication with other providers. Discharge Instructions Please refer to the electronic Patient Visit Report (Discharge Instructions) for additional information. Follow-Up Dr. Boo on 04/14 (previously scheduled) Additional Copies To Jorge A Sherwood M.D.; Clint Boo M.D.
[2016-04-09 11:59] VITALS: BP 142/43; PULSE 64; TEMP 36.6; O2SAT 95
[2016-04-09] MEDS ORDERED: PANTOprazole INJ 40 MG in DEXTROSE 5% 100ML 100 ML IV SCH (12:15)
[2016-04-09 12:39] VITALS: BP 142/43; PULSE 64; TEMP 36.6; O2SAT 95
[2016-07-20] MEDS ORDERED: ALBU18002 INH (07:39)
[2016-07-20] MEDS ORDERED: SYMIN160 INH (07:39)
[2016-07-20] MEDS ORDERED: LIRA18IN SC (07:39)
[2016-07-20] MEDS ORDERED: INSDGI SC (07:39)
[2016-07-20] MEDS ORDERED: METF500T PO (07:39)
[2016-07-20] MEDS ORDERED: LANS30CA12 PO (07:39)
[2016-07-20] MEDS ORDERED: ERGO1CAP41 PO (07:39)
[2016-07-20] MEDS ORDERED: ASTN (07:40)
== END 2016-04-09 13:30 | disposition home or self-care (01) | DRG 379 ==
LOC: ENRESERVDT → ENRESERVTM → C.EDB 09:45 → C.2E 13:44
PROVIDERS: ADMIT Internal Medicine; ATTEND Internal Medicine
PROC: 0DJ08ZZ Inspection of Upper Intestinal Tract, Via Natural or Artificial Opening Endoscopic (ICD-10-PCS; principal; 2016-04-08 14:03)
DX: K25.4 Chronic or unspecified gastric ulcer with hemorrhage (principal); K92.1 Melena; J45.909 Unspecified asthma, uncomplicated; E11.65 Type 2 diabetes mellitus with hyperglycemia; I10 Essential (primary) hypertension; I25.10 Atherosclerotic heart disease of native coronary artery without angina pectoris; E78.00 Pure hypercholesterolemia, unspecified; F32.9 Major depressive disorder, single episode, unspecified; I25.2 Old myocardial infarction; Z87.59 Personal history of other complications of pregnancy, childbirth and the puerperium; Z98.61 Coronary angioplasty status; Z79.02 Long term (current) use of antithrombotics/antiplatelets; Z79.82 Long term (current) use of aspirin; Z79.84 Long term (current) use of oral hypoglycemic drugs; Z79.899 Other long term (current) drug therapy

== ENCOUNTER → 2016-04-12 | Outpatient (CLI) | payer OTHER, BC ==
[~2016-04-12] MED LIST changes: +ALBU18002 INH; +ASTN; -CLOP1TAB15 PO; +ERGO1CAP41 PO; +INSDGI SC; +LIRA18IN SC; +LOSA100T66 PO; +METF500T PO; +PANT40TA PO; -PRM/45 PO; +SYMIN160 INH; -[UNRECOGNIZED DRUG - CODE] PO
[2016-04-12 13:50] LABS: HEMATOCRIT 28.4 % (37-47); MEAN CELL VOLUME 94.7 fL (80-100); MEAN CORPUSCULAR HEMOGLOBIN 31.3 pg (25-34); MEAN CORPUSCULAR HGB CONC 33.1 g/dl (32-36); MEAN PLATELET VOLUME 12.3 fL (7.4-10.4); PLATELET COUNT 196 K/uL (130-400); WHITE BLOOD COUNT 6.58 K/uL (4.8-10.8)
[2016-04-12 14:23] LABS: ALT/SGPT 37 U/L (12-78); BLOOD UREA NITROGEN 17 mg/dl (7-18); BUN/CREATININE RATIO 14.5 (10-20); CALCIUM 9.1 mg/dl (8.5-10.1); CARBON DIOXIDE 26 mmol/L (21-32); CHLORIDE 105 mmol/L (98-107); ESTIMATED AVERAGE GLUCOSE 206 mg/dl; GLUCOSE 226 mg/dl (70-99); HA1C FLAG Normal (Normal); POTASSIUM 3.6 mmol/L (3.5-5.1); SODIUM 141 mmol/L (136-145)
[2016-04-12 14:26] LABS: ALB/GLOB RATIO 1.2 (0.9-2); ALKALINE PHOSPHATASE 84 U/L (45-117); AST/SGOT 26 U/L (15-37)
== END | disposition home or self-care (01) ==
LOC: C.LABBC 11:05
PROVIDERS: ATTEND Internal Medicine Pulmonary Disease
DX: D64.9 Anemia, unspecified (principal); J30.9 Allergic rhinitis, unspecified; J45.909 Unspecified asthma, uncomplicated; I10 Essential (primary) hypertension; E11.9 Type 2 diabetes mellitus without complications

== ENCOUNTER → 2016-04-26 | Outpatient (CLI) | payer OTHER, BC ==
--- NOTE | 2016-04-27 06:40 | SPLIT NIGHT TECHNICIAN REPORT ---
[facility] Split Night Polysomnogram - Application Development Team Lead Report Study date: 04/26/2016 Referring Physician: Vania Gomez PA-C Name: ONELIA LOPEZ Application Development Team Lead: MING Cabrera. Date of : 1950 Height: 65 years, Height 5' 5" Sex: Female Weight: 218 lbs Age: 65 Neck Circum: 12 in BMI: Medications: 36.27 ASPIRIN 81 MG, ATORVASTATIN 80 MG, CELECOXIB 200 MG, CLARITIN 10 MG, CLOPIDOGREL 75 MG, DESONIDE 0.05% EX OINT, FLUOCINONIDE 0.05% EX OINT, GLIPIZIDE 5 MG, HYDROCODONE-HOMATROPINE 5-1.5 MG, KLOR-CON 20 MEQ, LOSARTAN-HCTZ 100-12.5 MG, METFORMIN 500 MG, METOPROLOL 100 MG, PROAIR HFA, RANITIDINE 300 MG, SYMBICORT 160-4.5 MCG/ACT, ZETIA 10 MG Patient History 65 yr-old female here for a baseline study. She has a history of frequent awakenings, snoring, and witnessed apneas. Her [place] scale is 9. The test was started on room air. ETCO2 testing was not utilized during this study. Room 3 Parameters Monitored NPSG: E1-M2, E2-M1, Fp1-M2, Fp2-M1, F3-M2, F4-M2, F4-M1, C3-M2, C4-M2, C4-M1, O1-M2, O2-M2, O2-M1, T3-M2, T4-M1, P3-M2, P4-M1, CHIN1, CHIN2, HR, EKG, Legs, PFLOW, SNOR, FLOW, CFLOW, Tidal Volume, THOR, ABDO, SpO2, PLTH, CPRESS, ETCO2 Wave, ETCO2, pH SLEEP SUMMARY DATA DIAGNOSTIC TREATMENT Lights Out: 10:47:03 PM 1:59:33 AM Lights On: 1:44:33 AM 5:45:03 AM Total Recording Time (TRT): 177.5 min. 225.5 min. Total Sleep Time (TST): 125.5 min. 116.0 min. NREM Time: 125.5 min. 73.5 min. REM Time: 0.0 min. 42.5 min. Sleep Period Time (SPT): 143.0 min. 135.5 min. Sleep Efficiency (SE): 71 % 51 % Sleep Latency: 34.5 min. 90.0 min. Arousal Index: 36.8 8.3 PAP Treatment Levels: 4, 5 * Optimal Pressure(s) SLEEP STAGING DATA DIAGNOSTIC TREATMENT Duration (min) TST % Duration (min) TST % Stage Wake: 52.0 min. -- 109.5 min. -- WASO: 17.5 min. -- 19.5 min. -- NREM: 125.5 min. 100 % 73.5 min. 63 % Stage N1: 19.5 min. 16 % 10.5 min. 9 % Stage N2: 101.5 min. 81 % 29.5 min. 25 % Stage N3: 4.5 min. 4 % 33.5 min. 29 % REM: 0.0 min. 0 % 42.5 min. 37 % POSITIONAL DATA Event Count Index Event Count Index Supine: 48 44.5 1 120.0 Supine NREM: 48 44.5 1 120.0 Supine REM: N/A N/A N/A N/A Non-Supine: 71 60.4 12 6.2 Non-Supine NREM: 71 60.4 11 9.0 Non-Supine REM: N/A N/A 1 1.4 AROUSAL SUMMARY DATA: Event Count Index Event Count Index Apnea Arousals: 7 29.2 4 3.6 Hypopnea Arousals: 17 8.1 2 1.0 Snore Arousals: 7 3.3 0 0.0 PLM Arousals: 2 1.0 0 0.0 Non-Specific Arousals: 32 15.3 4 2.1 Total Arousals: 77 36.8 16 8.3 MYOCLONUS (PLM) Event Count Index Event Count Index PLM: 15 7.2 4 2.1 PLM AROUSAL: 2 1.0 0 0.0 PLM W/O AROUSAL 15 7.2 4 2.1 PLM W/RESP EVENT 6 0.0 0 0.0 MYOCLONUS (PLM) Event Count Index Event Count Index LM: 5 21.0 31 16.0 LM AROUSAL: 5 2.4 6 3.1 LM W/O AROUSAL LM W/RESP EVENT LM NON SPECIFIC 34 16.3 27 14.0 HEART RATE DATA DIAGNOSTIC TREATMENT Sleep (bpm): 49 52 REM (bpm): N/A 91 NREM (bpm): 94 92 Tachycardia Count: 0 0 Tachycardia Duration: 0.00 0 Bradycardia Count: 0 0 Bradycardia Duration: 0.00 0 DIAGNOSTIC PORTION TREATMENT PORTION RESPIRATORY DATA Event Count Index Event Count Index AHI: -- 53.1 -- 6.7 RDI: -- 56.9 -- 7 Obstructive Apnea: 32 15.3 1 0.5 Central Apnea: 7 3.3 6 3.1 Mixed Apnea: 22 10.5 0 0.0 Hypopnea: 50 23.9 6 3.1 RERA: 8 3.8 0 0.0 Total Apneas: 61 29.2 7 3.6 RESPIRATORY DATA REM NREM SLEEP REM NREM SLEEP Supine Position: Obstructive Apneas: N/A 11 11 N/A 0 0 Central Apneas: N/A 1 1 N/A 1 1 Mixed Apneas: N/A 1 1 N/A 0 0 Hypopneas: N/A 30 30 N/A 0 0 RERA N/A 5 5 N/A 0 0 Total Supine Events: N/A 48 48 N/A 1 1 Supine AHI: N/A 44.5 44.5 N/A 120.0 120.0 Supine RDI: N/A 49.7 49.7 N/A 120.0 120.0 REM NREM SLEEP REM NREM SLEEP Non-Supine Position: Obstructive Apneas: N/A 21 21 0 1 1 Central Apneas: N/A 6 6 0 5 5 Mixed Apneas: N/A 21 21 0 0 0 Hypopneas: N/A 20 20 1 5 6 RERA N/A 3 3 0 0 0 Total Supine Events: N/A 71 71 1 11 12 Supine AHI: N/A 60.4 60.4 1.4 9.0 6.2 Supine RDI: N/A 63.1 63.1 1.4 9.0 6.2 OXYGEN DESTAURATION DATA: Event Count Index Event Count Index REM Desaturations: N/A N/A 1 1.4 NREM Desaturations: 94 44.9 11 9.0 SNORE DATA DIAGNOSTIC TREATMENT Snore Time: 6.3 3:29:33 AM Snore TST%: 6 3 Snore Arousal Count: 7 0 Snore Arousal Index: 3.3 0.0 Desaturation Event Summary: Minimum %SpO2 Event Count Mean/Min/Max Duration(sec.) Desaturation Index % Time In Bed > 90 137 23.0 / 6.0 / 56.5 21.0 97.0 86 - 90 2 8.0 / 7.0 / 9.0 9.9 3.0 81 - 85 0 N/A 0.0 0.0 76 - 80 0 N/A 0.0 0.0 71 - 75 0 N/A 0.0 0.0 66 - 70 0 N/A 0.0 0.0 61 - 65 0 N/A 0.0 0.0 56 - 60 0 N/A 0.0 0.0 51 - 55 0 N/A 0.0 0.0 < 50 0 N/A 0.0 0.0 OXYGEN SATURATION DATA DIAGNOSTIC TREATMENT SpO2 Mean Sleep: 94 % 92 % SpO2 Mean REM: N/A % 91 % SpO2 Mean NREM: 94 % 92 % SpO2 Minimum Sleep: 89 % 85 % SpO2 Minimum REM: N/A % 88 % SpO2 Minimum NREM: 89 % 85 % Time Below 90% (TST): 0.3 1.3 Time Below 88% (TST): 0.0 0.3 Total REM NREM Awake <50% 0.0 min. 0.0 min. 0.0 min. 0.0 min. 51 - 60% 0.0 min. 0.0 min. 0.0 min. 0.0 min. 61 - 70% 0.0 min. 0.0 min. 0.0 min. 0.0 min. 71 - 80% 0.0 min. 0.0 min. 0.0 min. 0.0 min. 81 - 90% 12.1 min. 4.8 min. 6.6 min. 0.7 min. 91 - 100% 390.9 min. 37.7 min. 192.4 min. 160.8 min. Average 93 91 93 95 Minimum SpO2 85 88 85 90 Desaturation Event Index 20.7 1.4 31.7 12.3 # Desat. Events below 89% 3 1 2 N/A Time(%) with Saturation below 89% 0.1 0.0 0.1 0.0 Time(min.) with Saturation below 89% 0.4 0.1 0.4 0.0 Recording Application Development Team Lead Comments: Ms. Lopez slept in the right, left, and supine positions. No cardiac arrhythmias were noted. PLMs were noted. No bruxism noted. Snoring was noted and scored as a 2-3 on a scale of 1 through 5. (0=no snoring, 5=snoring loud enough to be heard through a closed door or down the flores way). At 1:48, she met specific Split-Night criteria during the diagnostic portion of this study. CPAP was initiated at +4 CMH2O and up-titrated to a level of +5 CMH2O, Cflex 3. A Mirage FX Soft edge nasal mask size small from [employer] was used during titration. She awoke to use the restroom one time during the night. Ms. Lopez stated that she slept about the same as usual. The final report will be interpreted and signed by a sleep physician. The completed physician report will then be placed in the patient medical record. Therapy Event: Therapy (cm H20) 0 4 5 Total Time at Pressure (min.) 177.5 135.3 90.2 TST at Pressure (min.) 125.5 25.8 90.2 # Periods 1 1 1 Sleep Onset (min.) 34.5 90.0 0.0 REM Onset (min.) N/A N/A 38.7 Sleep Efficiency % 70 19 100 Wakefulness (%) 29.3 80.9 0.0 Wakefulness (min.) 52.0 109.5 0.0 NREM 1 (%) 11.0 7.0 1.1 NREM 1 (min.) 19.5 9.5 1.0 NREM 2 (%) 57.2 12.0 14.6 NREM 2 (min.) 101.5 16.3 13.2 NREM 3 (%) 2.5 0.0 37.1 NREM 3 (min.) 4.5 0.0 33.5 REM (%) 0.0 0.0 47.1 REM (min.) 0.0 0.0 42.5 # Arousals 77 15 1 Arousal Index 36.8 34.9 0.7 # Snore 280 31 53 Snore Index 133.9 72.1 35.3 AHI 53.1 23.3 2.0 AHI Supine 44.5 120.0 N/A AHI Non-Supine 60.4 21.4 2.0 NREM AHI 53.1 23.3 2.5 REM AHI N/A N/A 1.4 RDI 56.9 23.3 2.0 # Obstructive 32 1 0 # Central Ap 7 5 1 # Mixed 22 0 0 # Hypopneas 50 4 2 RERAS 8 0 0 Total Respiratory Events 119 10 3 Time Below SpO2 89.00% (min.) 0.0 0.0 0.4 Mean NREM SpO2 (%) 94 93 91 Mean REM SpO2 (%) N/A N/A 91 Mean Sleep SpO2 (%) 94 93 91 Min NREM SpO2 (%) 89 90 85 Min REM SpO2 (%) N/A N/A 88 Position Supine (min.) 58.0 0.5 0.0 Position Non-supine (min.) 67.5 25.3 90.2 LM Index Sleep 28.2 25.6 16.0 LM Index NREM 28.2 25.6 7.5 LM Index REM N/A N/A 25.4 Mean Heart Rate (bpm) 49 49 53 Min Heart Rate (bpm) 42 45 46
--- NOTE | 2016-04-28 10:25 | POLYSOMNOGRAPH REPORT ---
CLINICAL DATA: A 65-year-old female with BMI of 36.27 referred by Vania Gomez and myself with a history of frequent awakenings, snoring and witnessed apnea. Her [place] Sleepiness Score was 9/24. This was a split night study. SLEEP ARCHITECTURE: For the diagnostic portion of the study, total sleep period was 143 minutes. Total sleep time was 124.5 minutes, all non-REM sleep. Sleep latency was delayed at 34.5 minutes. Sleep efficiency was 71%. Arousal index was elevated at 36.8. Sleep consisted of stage N1 16%, N2 81%, and N3 4%. For the treatment portion of the study, total sleep period was 135.5 minutes. Total sleep time was 116 minutes divided between 73.5 minutes of non-REM sleep and 42.5 minutes of REM sleep. Sleep efficiency was 51%. Sleep latency was 90 minutes. Arousal index was 8.3. Sleep consisted of stage N1 9%, N2 25%, N3 29, and REM 37%. AROUSAL DATA: Prior to treatment, 77 arousals were recorded for an index of 36.8 per hour. Following treatment, 16 arousals recorded for an index of 8.3 per hour. PLM DATA: Prior to treatment, 34 limb movements during sleep were noted for an index of 16.3 per hour. Following treatment 27 limb movements during sleep were noted for an index of 14 per hour. EKG: Heart rates ranged from 49 to 94 beats per minute. No arrhythmias were noted. RESPIRATORY DATA: Prior to treatment, severe sleep apnea was documented. The AHI was 53.1. The RDI was 56.9. There were 32 obstructive, 7 central, and 22 mixed apneic episodes. There were 50 hypopneic episodes. There were 8 RERAs. Following treatment, the AHI was 6.7. There was 1 obstructive and 6 central apneic episodes. There were 6 hypopneic episodes recorded. OXIMETRY DATA: Oxygen elroy was 85% during non-REM sleep. The mean saturation after treatment was 92%. AIR TRAFFIC CONTROL OPERATOR'S COMMENTS AND TREATMENT SUMMARY: The patient slept in the right, left, and supine positions. Snoring was moderate, rated 2-3 on a scale of 1-5. At 1:48 a.m., she met split night criteria. CPAP was started using a Mirage FX soft edge nasal mask from [employer]. She was started at 4 cm of water and titrated up to a level of 5 cm of water pressure, C-Flex setting 3. At her final pressure setting, she slept for 90 minutes with an AHI of 2. IMPRESSION: Severe sleep apnea/hypopnea with diagnostic AHI of 53.1, corrected with CPAP 5 cm of water pressure, C-Flex setting #3, Mirage FX soft edge nasal mask size small from [employer]. RECOMMENDATIONS: The patient will be started on the above noted treatment regimen and seen back in followup within 90 days to document efficacy and compliance. [facility]
== END | disposition home or self-care (01) ==
LOC: C.NEUR 21:00
PROVIDERS: ATTEND Allergy & Immunology Allergy
DX: I10 Essential (primary) hypertension (principal); R06.83 Snoring; G47.30 Sleep apnea, unspecified

== ENCOUNTER → 2016-05-30 | Outpatient (CLI) | payer OTHER, BC ==
[~2016-05-30] MED LIST changes: -ERGO1CAP41 PO; +ERGO500011 PO; +LOSA100T30 PO; -LOSA100T66 PO; +METO100T44 PO; -METO1TAB69 PO
[2016-05-30 17:10] LABS: BASO % 0.7 %; BASO ABS # 0.04 K/uL (0-0.2); COMPLETE YES; EOS % 2.8 %; HEMATOCRIT 40.7 % (37-47); IG% 0.3 %; LYMPH % 31.9 %; LYMPH ABS # 1.91 K/uL (1.2-3.4); MEAN CELL VOLUME 91.7 fL (80-100); MEAN CORPUSCULAR HEMOGLOBIN 31.1 pg (25-34); MEAN CORPUSCULAR HGB CONC 33.9 g/dl (32-36); MEAN PLATELET VOLUME 12.6 fL (7.4-10.4); MONO % 6.9 %; NEUT % 57.4 %; PLATELET COUNT 181 K/uL (130-400); RED BLOOD COUNT 4.44 M/uL (4.2-5.4); WHITE BLOOD COUNT 5.98 K/uL (4.8-10.8)
[2016-05-30 17:35] LABS: CALCIUM URINE < 5.0 mg/dl; URINE COLLECTION TIME 24 HOURS
[2016-05-31 08:01] LABS: URINE SODIUM 24 HR 143 mmol/24 (40-220)
--- NOTE | 2016-06-03 08:50 | CODING QUERY MEDICAL NECESSITY ---
SUPPORTING DIAGNOSIS NEEDED A supporting diagnosis is required for the test/procedure performed on this patient in order for us to be reimbursed by the patient's insurance. Please provide a supporting diagnosis for the following test/procedure listed below next to the test name along with your signature. *If there is no additional diagnosis for this patient that would support the following test/procedure please document that below next to the test/procedure. Test(s)/Procedure(s) that require a supporting diagnosis: * VITAMIN D 25-HYDROXY DIAGNOSIS: * VITAMIN B-12 LEVEL DIAGNOSIS: * DOS: 05/30/16 Provider Signature: Date: Thank you Zehra Alvarenga Health Information Management Once completed, please kindly fax back to [phone] For questions please call [phone]
== END | disposition home or self-care (01) ==
LOC: C.LABBC 13:10
PROVIDERS: ATTEND Internal Medicine Endocrinology, Diabetes & Metabolism
DX: J45.909 Unspecified asthma, uncomplicated (principal); I25.10 Atherosclerotic heart disease of native coronary artery without angina pectoris; E11.9 Type 2 diabetes mellitus without complications; R06.83 Snoring; R06.81 Apnea, not elsewhere classified; K25.9 Gastric ulcer, unspecified as acute or chronic, without hemorrhage or perforation; D62 Acute posthemorrhagic anemia; N20.0 Calculus of kidney; E55.9 Vitamin D deficiency, unspecified

== ENCOUNTER → 2016-06-15 | Outpatient (CLI) | payer OTHER, BC | END | disposition home or self-care (01) | LOC: C.MAMM 11:03 | PROVIDERS: ATTEND Internal Medicine Endocrinology, Diabetes & Metabolism | DX: M81.0 Age-related osteoporosis without current pathological fracture (principal) ==

== ENCOUNTER → 2016-06-30 | Outpatient (CLI) | payer OTHER, BC ==
--- NOTE | 2016-07-01 15:40 | MAMMOGRAPHY REPORT ---
BILATERAL DIGITAL SCREENING MAMMOGRAM TOMOSYNTHESIS WITH CAD: 06/30/2016 CLINICAL HISTORY: Routine screening. Patient has no complaints. TECHNIQUE: Breast tomosynthesis in addition to standard 2D mammography was performed. Current study was also evaluated with a Computer Aided Detection (CAD) system. COMPARISON: Comparison is made to exams dated: 09/02/2013 mammogram, 08/31/2012 mammogram, 08/30/2011 cale mogram, 08/25/2010 mammogram, 08/21/2009 mammogram - [facility], and 08/04/2008. BREAST COMPOSITION: There are scattered areas of fibroglandular density in both breasts. FINDINGS: There are possible new grouped calcifications seen within the right lower inner quadrant, for which spot magnification views are recommended for further evaluation. Other calcifications ar e seen within both breasts which are new compared to the prior 2013 exam, however, these are more sc attered in distribution. The remainder of both breasts are stable compared to prior exams, without suspicious masses, calcifi cations, or areas of architectural distortion noted. Small bilateral circumscribed benign-appearing masses are again noted, and are considered benign given the multiplicity and bilaterality and may r epresent cysts. IMPRESSION: ACR BI-RADS CATEGORY 0: INCOMPLETE EVALUATION: NEED ADDITIONAL IMAGING EVALUATION Right lower inner quadrant calcifications, for which additional imaging evaluation is recommended. The patient will be called to schedule an appointment. Approximately 10% of breast cancers are not detected with mammography. A negative mammographic repor t should not delay biopsy if a clinically suggestive mass is present. Kellie Sanchez M.D. ah/:06/30/2016 16:36:21 Dealer Accounts Investigator: Mitali MEHTA(Kriss)(M), [facility] letter sent: Addl Imaging 0 BI-RADS Code: ACR BI-RADS Category 0: Incomplete Evaluation: Need Additional Imaging Evaluation
== END | disposition home or self-care (01) ==
LOC: C.MAMM 13:12
PROVIDERS: ATTEND Obstetrics & Gynecology
DX: Z12.31 Encounter for screening mammogram for malignant neoplasm of breast (principal); R92.1 Mammographic calcification found on diagnostic imaging of breast

== ENCOUNTER → 2016-07-11 | Outpatient (CLI) | payer OTHER, BC ==
[2016-07-11 14:31] LABS: AST/SGOT 18 U/L (15-37); BLOOD UREA NITROGEN 28 mg/dl (7-18); BUN/CREATININE RATIO 19.9 (10-20); CALCIUM 10.4 mg/dl (8.5-10.1); CARBON DIOXIDE 32 mmol/L (21-32); CHLORIDE 105 mmol/L (98-107); GLUCOSE 140 mg/dl (70-99); POTASSIUM 4.4 mmol/L (3.5-5.1); SODIUM 142 mmol/L (136-145)
[2016-07-11 14:34] LABS: ALT/SGPT 25 U/L (12-78); CHOLESTEROL 134 mg/dl (0-200); HDL CHOLESTEROL 44 mg/dl; LDL CHOLESTEROL CALCULATED 60 mg/dl; TRIGLYCERIDES 150 mg/dl (0-150); VERY LOW DENSITY LIPOPROT CALC 30 mg/dl
== END | disposition home or self-care (01) ==
LOC: C.LAB1850 11:08
PROVIDERS: ATTEND Internal Medicine Cardiovascular Disease
DX: I25.10 Atherosclerotic heart disease of native coronary artery without angina pectoris (principal); I10 Essential (primary) hypertension

== ENCOUNTER → 2016-07-11 | Outpatient (CLI) | payer OTHER, BC ==
--- NOTE | 2016-07-11 14:46 | MAMMOGRAPHY REPORT ---
UNILATERAL RIGHT DIGITAL DIAGNOSTIC MAMMOGRAM: 07/11/2016 CLINICAL HISTORY: 66-year-old woman called back from screening mammography for possible clustered mi crocalcifications in the lower inner quadrant of the right breast. Family history of breast cancer = mother. TECHNIQUE: Spot magnification right CC and ML views were obtained. COMPARISON: Comparison is made to exams dated: 06/30/2016 mammogram, 09/02/2013 mammogram, 08/31/2012 cale mogram, 08/30/2011 mammogram, 08/25/2010 mammogram, and 08/21/2009 mammogram - [facility]. BREAST COMPOSITION: There are scattered areas of fibroglandular density in the right breast. FINDINGS: There are faint amorphous and round clustered microcalcifications in the lower inner midd le one third of the right breast measuring approximately 6 mm in diameter. The microcalcifications are better seen on the spot magnification CC view than on the spot magnification ML view. They are also clearly seen on the corresponding tomosynthesis images from the screening exam dated 06/30/2016 . They are located within a vague area of asymmetry that measures 3.5 cm. However, that asymmetry has been present and appears stable on all available prior mammograms dating back to at least 2007 and may be coincidental. Nevertheless, definitive characterization with tissue sampling of the microcalcifications is recommended. IMPRESSION: ACR BI-RADS CATEGORY 4B: INTERMEDIATE SUSPICION FOR MALIGNANCY 1. Right breast stereotactic guided biopsy is recommended for a new faint cluster of amorphous and round microcalcifications in the lower inner quadrant of the right breast. They are located within an area of asymmetry that has been stable dating back to 2007, but the calcifications are new. CC f rom below positioning is recommended, given that the microcalcifications are best seen in the CC pro jection. These results and recommendations were discussed with the patient at the time of the exam. She tent atively scheduled the biopsy prior to leaving the department. Approximately 10% of breast cancers are not detected with mammography. A negative mammographic repor t should not delay biopsy if a clinically suggestive mass is present. Madison Barry M.D. ay/:07/11/2016 12:43:18 Sales Contracts Analyst: Nancy MEHTA(Kriss)(M), [facility] letter sent: Abnormal 4/5 BI-RADS Code: ACR BI-RADS Category 4B: Intermediate Suspicion For Malignancy
== END | disposition home or self-care (01) ==
LOC: C.MAMM 10:12
PROVIDERS: ATTEND Obstetrics & Gynecology
DX: R92.0 Mammographic microcalcification found on diagnostic imaging of breast (principal); N64.9 Disorder of breast, unspecified; I25.10 Atherosclerotic heart disease of native coronary artery without angina pectoris; I10 Essential (primary) hypertension

== ENCOUNTER → 2016-07-18 | Outpatient (CLI) | payer OTHER, BC ==
--- NOTE | 2016-07-18 08:31 | DIAGNOSTIC IMAGING REPORT ---
ULTRASOUND ABDOMEN COMPLETE CLINICAL HISTORY: Generalized abdominal pain. COMPARISON STUDY: Abdominal CT dated 01/01/2015. TECHNIQUE: Real-time, grayscale, and color flow sonography of the abdomen was performed. Images are reviewed in the transverse and longitudinal planes. FINDINGS: Liver: The liver is enlarged and demonstrates heterogeneous increased echotexture consistent with hepatic steatosis. Fatty sparing is noted adjacent to gallbladder fossa. There is no intrahepatic biliary ductal dilatation. The main portal vein is patent. Gallbladder: The gallbladder is normal in appearance. No gallstones are identified. There is no gallbladder wall thickening or pericholecystic fluid. A sonographic Jc's sign is reportedly absent. The common bile duct measures up to 0.6 cm in diameter. Pancreas: Visualized portions of the pancreatic head and body are normal in appearance. Spleen: The spleen is normal in size and echotexture, measuring 12.4 cm in length. Kidneys: The kidneys demonstrate cortical atrophy. There is no hydronephrosis. The right kidney measures 11.6 cm in length and the left kidney measures 11.1 cm in length. Pelviectasis of the right renal collecting system is similar to prior studies. No shadowing calculi are identified. Abdominal vasculature: Visualized portions of the abdominal aorta and IVC are normal in appearance. Ascites: None. IMPRESSION: 1. No acute sonographic abnormality is identified. 2. No gallstones are seen. 3. Hepatomegaly and hepatic steatosis. 4. Pelviectasis of the right renal collecting system is similar to previous. Electronically signed by: Noam Bower M.D. 07/18/2016 8:29 AM Dictated Date/Time: 07/18/2016 8:26 AM
== END | disposition home or self-care (01) ==
LOC: C.ULTR 07:02
PROVIDERS: ATTEND Internal Medicine Gastroenterology
DX: K25.9 Gastric ulcer, unspecified as acute or chronic, without hemorrhage or perforation (principal); R10.9 Unspecified abdominal pain

== ENCOUNTER → 2016-07-20 | Outpatient (CLI) | payer OTHER, BC ==
--- NOTE | 2016-07-20 10:33 | Discharge Instructions ---
Discharge Instructions Procedure Procedure Date: July 20, 2016. Reason for visit: Rt Calcs. Discharge Discharge Date: July 20, 2016. Discharge Diagnosis: status post breast biopsy Instructions Activity Recommendations: Additional Limitations (see below) Return to School/Work: no limitations Recommended Home Diet: No Limitations Provider Instructions: ACTIVITY RECOMMENDATIONS: * No lifting, pushing, pulling or exercising the affected side for three days. RETURN TO SCHOOL/WORK: * You may return to work/school after the procedure, but do not perform any strenuous activities for 24 to 48 hours. MEDICATIONS: * Tylenol (two 325 mg) every four to six hours if needed for mild pain (if not allergic to Tylenol). DIET: * Resume previous diet. SPECIAL CARE INSTRUCTIONS: * Keep biopsy site dry for 24 hours. May shower after 24 hours, but do not soak (bathe) incision. * May remove Tegaderm (plastic patch) tomorrow AFTER showering. * Leave the steri-strips on for one week. Allow the steri-strips to fall off by themselves. If not off after one week, you may remove them. You may place a Bandaid crosswise over the strips, if desired. * Apply ice 10 minutes on and 10 minutes off as needed. * Wear a bra at bedtime to sleep more comfortably for 2-3 days. * Your referring physician should have the results after approximately 5 to 7 business days. * Call for unusual bleeding, fever, drainage, etc or if you have any questions call during normal business hours or after hours call Dr Sanchez, . FOLLOW UP VISIT: Follow-up with Referring Physician as scheduled. Allergies Coded Allergies: Bae Pepper (Verified Allergy, Mild, RASH, 07/20/16) NO KNOWN DRUG ALLERGIES (Verified Allergy, Unknown, ., 07/20/16) Summer Miguel Recommendations: Call your doctor if: * Temperature above 101 degrees * Pain not relieved by pain medicine ordered * There is increased drainage or redness from any incision * You have any unanswered questions or concerns. Your Doctors Instructions noted above were prepared by provider Kellie Sanchez. Patient Signature Section: Patient Instructions Signature Page Lashay Lopez Patient (or Guardian) Signature/Date: I have read and understand the instructions given to me by my caregivers. Caregiver/RN/Doctor Signature/Date: The above-named patient and/or guardian has received patient instructions on this date. + Original Patient Signature Page (only) stays with chart. Please make copy for patient.
--- NOTE | 2016-07-20 12:58 | MAMMOGRAPHY REPORT ---
STEREOTACTIC GUIDED BIOPSY RIGHT BREAST: 07/20/2016 CLINICAL HISTORY: Indeterminate calcifications in the right lower inner quadrant. PATIENT CONSENT: The procedure, risks, benefits, and alternatives of stereotactic biopsy with clip p lacement were discussed with the patient, and verbal and written consent was obtained. A timeout wa s performed immediately prior to the procedure. PROCEDURE DESCRIPTION: With stereotactic guidance, aseptic technique, and lidocaine as a local anest hetic (1% lidocaine to anesthetize the skin and 1% lidocaine with epinephrine to anesthetize the mau per tissues), the area of concern was sampled multiple times with a 9-gauge vacuum-assisted biopsy n eedle (Suros Eviva). The path of approach was caudocranial. The specimen radiograph demonstrates c alcifications to be present in the samples. A metallic marker clip was placed at the biopsy site. This was confirmed on postprocedure mammograms. Direct pressure was applied at the biopsy site and hemostasis was readily achieved. The patient tolerated the procedure without complication. She was given wound care instructions. COMPARISON: Comparison is made to exams dated: 07/11/2016 mammogram, 06/30/2016 mammogram, 09/02/2013 ma mmogram, 08/31/2012 mammogram, 08/30/2011 mammogram, and 08/25/2010 mammogram - [facility]. IMPRESSION: STEREOTACTIC GUIDED BIOPSY Stereotactic biopsy of indeterminate calcifications in the right lower inner quadrant, with clip lucinda cement. The patient will receive pathology results from her ordering provider. Kellie Sanchez M.D. /:07/20/2016 10:36:00 Air Brakes Inspector: Mitali Crystal,
--- NOTE | 2016-07-20 12:58 | MAMMOGRAPHY REPORT ---
UNILATERAL RIGHT DIGITAL DIAGNOSTIC MAMMOGRAM: 07/20/2016 CLINICAL HISTORY: Status post right breast stereotactic biopsy. TECHNIQUE: Postprocedural right CC and ML views were obtained. COMPARISON: Comparison is made to exams dated: 07/11/2016 mammogram, 06/30/2016 mammogram, 09/02/2013 ma mmogram, 08/31/2012 mammogram, and 08/30/2011 mammogram - [facility]. BREAST COMPOSITION: There are scattered areas of fibroglandular density in the right breast. FINDINGS: A new biopsy marker clip is seen at the site of the biopsied calcifications in the right medial breast at approximately 3:00. No significant postbiopsy hematoma is seen. IMPRESSION: POST PROCEDURE IMAGING FOR MARKER PLACEMENT New biopsy marker clip status post right breast stereotactic biopsy. Pathology results are pending. Approximately 10% of breast cancers are not detected with mammography. A negative mammographic repor t should not delay biopsy if a clinically suggestive mass is present. Kellie Sanchez M.D. ah/:07/20/2016 10:52:14 Marketing Community Liaison: Mitali Crystal [facility] BI-RADS Code: Post Procedure Imaging For Marker Placement
== END | disposition home or self-care (01) ==
LOC: C.MAMM 10:06
PROVIDERS: ATTEND Obstetrics & Gynecology
DX: R92.0 Mammographic microcalcification found on diagnostic imaging of breast (principal); D24.1 Benign neoplasm of right breast

== ENCOUNTER → 2016-08-01 | Day surgery (SDC) | payer OTHER, BC ==
[2016-07-20 07:41] VITALS: Ht 165.1 cm; Wt 97.7 kg
[~2016-08-01] VITALS: Ht 165.1 cm; Wt 97.7 kg
[~2016-08-01] MED LIST changes: +ATROPINE SULFATE 0.1 MG/ML 5ML SYR IV PRN; +EpHEDrine SULFATE INJ 50 MG/ML AMP IV PRN; +FENTANYL CITRATE INJ 50 MCG/1 ML 2 ML VIAL ONE; +HydrALAZINE HCL 20 MG/ML VIAL IV. STA; +HydrALAZINE HCL 20 MG/ML VIAL ONE; +LIDOCAINE HCL 2% 2 ML VIAL (20MG/ML) ONE; -LOSA100T30 PO; -PANT40TA PO; -POTA20TA16 PO; +PROPOFOL IV EMULSION 10 MG/ML 20 ML VIAL IV ONE
[2016-08-01 13:49] VITALS: TEMP 36.8
--- NOTE | 2016-08-01 14:19 | Endo History and Physical ---
History & Physical Date of Service: Aug 01, 2016. Chief Complaint: HX GI BLEED FRB Referring Physician: DR Radha BETANCOURT History of Present Illness For EGD Past Surgical History Hx Cardiac Surgery: Yes (HEART CATH-1 STENT) Hx Internal Defibrillator: No Hx Pacemaker: No Hx Abdominal Surgery: Yes (VANESSA BSO, D&C) Hx of Implantable Prosthesis: No Hx Post-Op Nausea and Vomiting: No Hx Cancer Surgery: No Hx Thoracic Surgery: No Hx Orthopedic: Yes (GANGLION CYST ON WRIST EXCISION) Hx Urinary Tract Surgery: No Family History Polyp Social History Smoking Status: Never Smoker Hx Substance Use: No Hx Alcohol Use: Yes ("VERY LITTLE") Allergies Coded Allergies: Bae Pepper (Verified Allergy, Mild, RASH, 07/20/16) NO KNOWN DRUG ALLERGIES (Verified Allergy, Unknown, ., 07/20/16) Current Medications Reported Home Medications Medications Dose Route/Sig Max Daily Dose Days Date Category Dose Instructions Astelin Nasal [place] (Azelastine Hcl) 200 Sprays/30 Ml [place] 1-2 Sprays NA BID PRN 07/20/16 Reported Vitamin D 54581 Unit (Ergocalciferol) 50,000 Unit Cap 1 Tab PO WK 07/20/16 Reported Victoza (Liraglutide) 18 Mg/3 Ml Inj 0.6 Mg SC QPM 07/20/16 Reported Symbicort 160/4.5 Inhaler (Budesonide/Formoterol Fumarate) Aero 2 Puffs INH QAM 07/20/16 Reported Proair Respiclick (Albuterol Sulfate) 108 Mcg/Act Aer 2 Puff INH Q4H PRN 07/20/16 Reported Glucophage (Metformin Hcl) 500 Mg Tab 500 Mg PO QAM 07/20/16 Reported Lantus (Insulin Glargine) 100 Unit/Ml Inj 18 SC QPM 07/20/16 Reported Prevacid (Lansoprazole) 30 Mg Capcr 30 Mg PO QAM 07/20/16 Reported Claritin (Loratadine) 10 Mg Tab 10 Mg PO QAM 07/11/13 Reported Zetia (Ezetimibe) 10 Mg Tab 10 Mg PO QAM 07/10/13 Reported Glipizide Er (Glipizide) 5 Mg Tab 5 Mg PO QAM 07/10/13 Reported CeleBREX (Celecoxib) 200 Mg Cap 200 Mg PO QAM 07/10/13 Reported CURRENLTY ON HOLD Ecotrin Or Generic (Aspirin) 81 Mg Tab 81 Mg PO QAM 07/10/13 Reported Prozac (Fluoxetine HCl) 20 Mg Cap 20 Mg PO QAM 01/10/08 Reported Lipitor (Atorvastatin Calcium) 80 Mg Tab 80 Mg PO QAM 01/10/08 Reported Toprol-Xl (Metoprolol Succinate) 100 Mg Tabcr 100 Mg PO QAM 01/10/08 Reported Vital Signs Weight (Kilograms): 97.73 Height (Feet): 5 Height (Inches): 5 Date Time Temp Pulse Resp B/P (MAP) Pulse Ox O2 Delivery O2 Flow Rate FiO2 08/01/16 13:49 36.8 60 20 195/78 95 Room Air Physical Exam General Appearance: WD/WN Respiratory/Chest: Respiratory effort: no dyspnea Cardiovascular: Heart Auscultation: RRR Abdomen: Inspection & Palpation: soft Assessment and Plan Gastric ulcer recheck
--- NOTE | 2016-08-01 14:44 | Discharge Instructions ---
Endoscopy Patient Instructions Date / Procedure(s) Performed Aug 01, 2016. EGD Allergy Information Coded Allergies: Bae Pepper (Verified Allergy, Mild, RASH, 07/20/16) NO KNOWN DRUG ALLERGIES (Verified Allergy, Unknown, ., 07/20/16) Discharge Date / Findings Aug 01, 2016. antral inflammation Medication Instructions Stopped Medication(s): PLAVIX TIMES 2 WEEKS CELEBREX TIMES 2 WEEKS METFORMIN 2 NIGHTS AGO 02/28 REG LANTUS DOSE 07/31 PROZAC 07/31 Restart Stopped Medication(s): resume meds Reported Home Medications Medications Dose Route/Sig Max Daily Dose Days Date Category Dose Instructions Astelin Nasal [place] (Azelastine Hcl) 200 Sprays/30 Ml [place] 1-2 Sprays NA BID PRN 07/20/16 Reported Vitamin D 03303 Unit (Ergocalciferol) 50,000 Unit Cap 1 Tab PO WK 07/20/16 Reported Victoza (Liraglutide) 18 Mg/3 Ml Inj 0.6 Mg SC QPM 07/20/16 Reported Symbicort 160/4.5 Inhaler (Budesonide/Formoterol Fumarate) Aero 2 Puffs INH QAM 07/20/16 Reported Proair Respiclick (Albuterol Sulfate) 108 Mcg/Act Aer 2 Puff INH Q4H PRN 07/20/16 Reported Glucophage (Metformin Hcl) 500 Mg Tab 500 Mg PO QAM 07/20/16 Reported Lantus (Insulin Glargine) 100 Unit/Ml Inj 18 SC QPM 07/20/16 Reported Prevacid (Lansoprazole) 30 Mg Capcr 30 Mg PO QAM 07/20/16 Reported Claritin (Loratadine) 10 Mg Tab 10 Mg PO QAM 07/11/13 Reported Zetia (Ezetimibe) 10 Mg Tab 10 Mg PO QAM 07/10/13 Reported Glipizide Er (Glipizide) 5 Mg Tab 5 Mg PO QAM 07/10/13 Reported CeleBREX (Celecoxib) 200 Mg Cap 200 Mg PO QAM 07/10/13 Reported CURRENLTY ON HOLD Ecotrin Or Generic (Aspirin) 81 Mg Tab 81 Mg PO QAM 07/10/13 Reported Prozac (Fluoxetine HCl) 20 Mg Cap 20 Mg PO QAM 01/10/08 Reported Lipitor (Atorvastatin Calcium) 80 Mg Tab 80 Mg PO QAM 01/10/08 Reported Toprol-Xl (Metoprolol Succinate) 100 Mg Tabcr 100 Mg PO QAM 01/10/08 Reported Provider Instructions Activity Restrictions - No exercising or heavy lifting for 24 hours. - Do not drink alcohol the day of the procedure. - Do not drive a car or operate machinery until the day after the procedure. - Do not make any important decisions or sign important papers in 24 hours after the procedure. Following Day: - Return to full activity which may include returning to work/school. Diet Start your diet with liquids and light foods (jello, soup, juice, toast). Then eat your usual diet if not nauseated. Treatment For Common After Affects For mild abdominal pain, bloating, or excessive gas: - Rest - Eat lightly - Lie on right side Follow-Up Information Follow-up with DR Radha BETANCOURT as scheduled Anesthesia Information What You Should Know You have had a procedure that required some medicine to reduce anxiety and discomfort. This treatment is called moderate sedation. After receiving the treatment, you may be sleepy, but you will be able to breathe on your own. The effects of the treatment may last for several hours. Follow these instructions along with Activity/Diet recommendations noted above: * Do NOT do anything where dizziness or clumsiness would be dangerous. * Rest quietly at home today, then you can be up and about tomorrow. * Have a responsible person stay with you the rest of today. * You may have had an I.V. today. If so, you may take the dressing off later today. Recommendations Call your doctor if: * Trouble breathing * Continuous vomiting for more than 24 hours * Temperature above 101 degrees * Severe abdominal pain or bloating * Pain not relieved by pain medicine ordered * There is increased drainage or redness from any incision * A large amount of rectal bleeding greater than 2-3 tablespoons. (If you had a polyp/s removed or have hemorrhoids, a small amount of blood - from the rectum is to be expected.) * You have any unanswered questions or concerns. IN THE EVENT OF A SERIOUS EMERGENCY, GO TO THE NEAREST EMERGENCY ROOM Your discharge instructions were prepared by provider Jorge A Sherwood. Patient Instructions Signature Page Lashay Lopez Patient (or Guardian) Signature/Date: I have read and understand the instructions given to me by my caregivers. Caregiver/RN/Doctor Signature/Date: The above-named patient and/or guardian has received patient instructions on this date. + Original Patient Signature Page (only) stays with chart. Please make copy for patient.
--- NOTE | 2016-08-01 14:50 | GI REPORT ---
Procedure Date: 08/01/2016 2:19 PM Procedure: Upper GI endoscopy Indications: Personal history of peptic ulcer disease Medicines: Fentanyl 100 micrograms IV, Propofol total dose 110 mg IV, Lidocaine 40 mg IV Complications: No immediate complications. Estimated Blood Loss: Estimated blood loss: none. Procedure: Pre-Anesthesia Assessment: - Prior to the procedure, a History and Physical was performed, and patient medications, allergies and sensitivities were reviewed. The patient's tolerance of previous anesthesia was reviewed. - The risks and benefits of the procedure and the sedation options and risks were discussed with the patient. All questions were answered and informed consent was obtained. After obtaining informed consent, the endoscope was passed under direct vision. Throughout the procedure, the patient's blood pressure, pulse, and oxygen saturations were monitored continuously. The scope was introduced through the mouth, and advanced to the third part of duodenum. The upper GI endoscopy was accomplished without difficulty. The patient tolerated the procedure well. Findings: The examined esophagus was normal. The Z-line was regular and was found 40 cm from the incisors. Localized moderate inflammation characterized by congestion (edema) and erythema was found in the gastric antrum. The examined duodenum was normal. The gastric ulcer is healed. Impression: - Normal esophagus. - Z-line regular, 40 cm from the incisors. - Gastritis. - Normal examined duodenum. - No specimens collected. Recommendation: - Discharge patient to home (ambulatory). - Continue present medications. - Return to primary care physician PRN. Jorge A Sherwood M.D. Jorge A Sherwood MD 08/01/2016 2:49:08 PM This report has been signed electronically. Note Initiated On: 08/01/2016 2:19 PM I attest to the content of the Intraoperative Record and orders documented therein, exceptions below
--- NOTE | 2016-08-01 15:03 | Anesthesiology Progress Note ---
Anesthesia Post Op Note Date & Time Aug 01, 2016 at 15:03 Vital Signs Pain Intensity: 0 Vital Signs Past 12 Hours Date Time Temp Pulse Resp B/P (MAP) Pulse Ox O2 Delivery O2 Flow Rate FiO2 08/01/16 14:53 64 20 146/91 96 Room Air 08/01/16 14:48 68 20 151/71 95 Room Air 08/01/16 14:42 64 20 151/71 93 Room Air 08/01/16 13:49 36.8 60 20 195/78 95 Room Air Notes Mental Status: alert / awake / arousable, participated in evaluation Pt Amnestic to Procedure: Yes Nausea / Vomiting: adequately controlled Pain: adequately controlled Airway Patency, RR, SpO2: stable & adequate BP & HR: stable & adequate Hydration State: stable & adequate Anesthetic Complications: no major complications apparent
[2016-08-01 15:57] VITALS: BP 183/78; PULSE 61; O2SAT 96
== END | disposition home or self-care (01) ==
LOC: C.GI 13:35
PROVIDERS: ATTEND Internal Medicine Gastroenterology
DX: Z87.11 Personal history of peptic ulcer disease (principal); K29.70 Gastritis, unspecified, without bleeding; Z90.710 Acquired absence of both cervix and uterus; Z90.722 Acquired absence of ovaries, bilateral; Z90.79 Acquired absence of other genital organ(s); Z79.4 Long term (current) use of insulin; Z79.82 Long term (current) use of aspirin

== ENCOUNTER → 2016-09-05 | Outpatient (CLI) | payer OTHER, BC ==
[~2016-09-05] MED LIST changes: -ATROPINE SULFATE 0.1 MG/ML 5ML SYR IV PRN; +ERGO1CAP41 PO; -ERGO500011 PO; -EpHEDrine SULFATE INJ 50 MG/ML AMP IV PRN; -FENTANYL CITRATE INJ 50 MCG/1 ML 2 ML VIAL ONE; -HydrALAZINE HCL 20 MG/ML VIAL IV. STA; -HydrALAZINE HCL 20 MG/ML VIAL ONE; -LIDOCAINE HCL 2% 2 ML VIAL (20MG/ML) ONE; -METO100T44 PO; +METO1TAB69 PO; -PROPOFOL IV EMULSION 10 MG/ML 20 ML VIAL IV ONE
[2016-09-05 17:02] LABS: ALT/SGPT 32 U/L (12-78); AST/SGOT 21 U/L (15-37); BLOOD UREA NITROGEN 31 mg/dl (7-18); BUN/CREATININE RATIO 19.2 (10-20); CALCIUM 10.1 mg/dl (8.5-10.1); CARBON DIOXIDE 28 mmol/L (21-32); CHLORIDE 106 mmol/L (98-107); GLUCOSE 116 mg/dl (70-99); POTASSIUM 3.9 mmol/L (3.5-5.1); SODIUM 141 mmol/L (136-145)
[2016-09-05 17:11] LABS: ALKALINE PHOSPHATASE 121 U/L (45-117); CHOLESTEROL 152 mg/dl (0-200); CHOLESTEROL/HDL RATIO 3.6; HDL CHOLESTEROL 42 mg/dl; LDL CHOLESTEROL CALCULATED 72 mg/dl; TRIGLYCERIDES 189 mg/dl (0-150); VERY LOW DENSITY LIPOPROT CALC 38 mg/dl
[2016-09-05 17:37] LABS: RATIO 10.2 mcg/mg (0-30.0)
[2016-09-06 06:27] LABS: ESTIMATED AVERAGE GLUCOSE 163 mg/dl; HA1C FLAG Normal (Normal)
== END | disposition home or self-care (01) ==
LOC: C.LABBC 13:26
PROVIDERS: ATTEND Internal Medicine Endocrinology, Diabetes & Metabolism
DX: E11.9 Type 2 diabetes mellitus without complications (principal); Z79.84 Long term (current) use of oral hypoglycemic drugs; Z79.4 Long term (current) use of insulin

== ENCOUNTER → 2016-10-05 | Outpatient (CLI) | payer OTHER, BC ==
[2016-10-05 15:18] LABS: BLOOD UREA NITROGEN 25 mg/dl (7-18); BUN/CREATININE RATIO 16.6 (10-20); CALCIUM 10.5 mg/dl (8.5-10.1); CARBON DIOXIDE 30 mmol/L (21-32); CHLORIDE 107 mmol/L (98-107); GLUCOSE 109 mg/dl (70-99); POTASSIUM 3.8 mmol/L (3.5-5.1); SODIUM 142 mmol/L (136-145)
[2016-10-05 15:19] LABS: PHOSPHORUS 2.6 mg/dl (2.5-4.9)
[2016-10-05 15:54] LABS: URINE APPEARANCE CLEAR (CLEAR); URINE BILIRUBIN NEG (NEG); URINE COLOR YELLOW; URINE NITRITE NEG (NEG); URINE PH 7.5 (4.5-7.5); URINE SPECIFIC GRAVITY 1.015 (1.000-1.030); UROBILINOGEN NEG (NEG)
[2016-10-05 16:14] LABS: URINE PROTIEN/CREAT RATIO 0.1 (0-0.2); URINE TOTAL PROTEIN 10.9 mg/dl (0-11.9)
[2016-10-05 16:17] LABS: MANUAL MICROSCOPIC REQUIRED? NO; REVIEW REQ? NO
== END | disposition home or self-care (01) ==
LOC: C.LAB1850 13:31
PROVIDERS: ATTEND Internal Medicine Nephrology
DX: E55.9 Vitamin D deficiency, unspecified (principal); N17.9 Acute kidney failure, unspecified

== ENCOUNTER → 2016-10-24 | Outpatient (CLI) | payer OTHER, BC ==
[2016-10-24 17:25] LABS: BLOOD UREA NITROGEN 20 mg/dl (7-18); BUN/CREATININE RATIO 16.8 (10-20); CALCIUM 10.2 mg/dl (8.5-10.1); CARBON DIOXIDE 29 mmol/L (21-32); CHLORIDE 105 mmol/L (98-107); GLUCOSE 100 mg/dl (70-99); MAGNESIUM 1.7 mg/dl (1.8-2.4); PHOSPHORUS 2.7 mg/dl (2.5-4.9); SODIUM 139 mmol/L (136-145)
== END | disposition home or self-care (01) ==
LOC: C.LABBC 12:51
PROVIDERS: ATTEND Internal Medicine Nephrology
DX: E55.9 Vitamin D deficiency, unspecified (principal)

== ENCOUNTER → 2016-12-01 | Outpatient (CLI) | payer OTHER, BC ==
[2016-12-01 16:55] LABS: BASO % 0.7 %; BASO ABS # 0.05 K/uL (0-0.2); COMPLETE YES; EOS % 3.4 %; HEMATOCRIT 41.4 % (37-47); IG% 0.5 %; LYMPH ABS # 1.86 K/uL (1.2-3.4); MEAN CELL VOLUME 91.8 fL (80-100); MEAN CORPUSCULAR HEMOGLOBIN 30.2 pg (25-34); MEAN CORPUSCULAR HGB CONC 32.9 g/dl (32-36); MEAN PLATELET VOLUME 12.1 fL (7.4-10.4); NEUT % 63.4 %; PLATELET COUNT 233 K/uL (130-400); RED BLOOD COUNT 4.51 M/uL (4.2-5.4); WHITE BLOOD COUNT 7.44 K/uL (4.8-10.8)
[2016-12-01 17:08] LABS: ALT/SGPT 33 U/L (12-78); AST/SGOT 21 U/L (15-37); BLOOD UREA NITROGEN 16 mg/dl (7-18); BUN/CREATININE RATIO 13.1 (10-20); CALCIUM 9.8 mg/dl (8.5-10.1); CARBON DIOXIDE 27 mmol/L (21-32); CHLORIDE 108 mmol/L (98-107); GLUCOSE 126 mg/dl (70-99); MAGNESIUM 1.7 mg/dl (1.8-2.4); POTASSIUM 3.9 mmol/L (3.5-5.1); SODIUM 142 mmol/L (136-145)
[2016-12-01 17:12] LABS: ALB/GLOB RATIO 1.2 (0.9-2); ALKALINE PHOSPHATASE 106 U/L (45-117); CHOLESTEROL 156 mg/dl (0-200); CHOLESTEROL/HDL RATIO 3.4; HDL CHOLESTEROL 46 mg/dl; LDL CHOLESTEROL CALCULATED 69 mg/dl; PHOSPHORUS 2.6 mg/dl (2.5-4.9); TRIGLYCERIDES 206 mg/dl (0-150); VERY LOW DENSITY LIPOPROT CALC 41 mg/dl
[2016-12-01 17:35] LABS: THYROID STIMULATING HORMONE 2.88 uIu/ml (0.300-4.500)
== END | disposition home or self-care (01) ==
LOC: C.LABBC 13:38
PROVIDERS: ATTEND Internal Medicine Endocrinology, Diabetes & Metabolism
DX: E11.9 Type 2 diabetes mellitus without complications (principal)

== ENCOUNTER → 2017-01-13 | Outpatient (CLI) | payer OTHER, BC ==
[~2017-01-13] MED LIST changes: -ERGO1CAP41 PO; +ERGO500011 PO; +METO100T44 PO; -METO1TAB69 PO
[2017-01-13 13:57] LABS: CHOLESTEROL/HDL RATIO 3.2
== END | disposition home or self-care (01) ==
LOC: C.LABBC 09:16
PROVIDERS: ATTEND Internal Medicine Cardiovascular Disease
DX: I25.10 Atherosclerotic heart disease of native coronary artery without angina pectoris (principal)

== ENCOUNTER → 2017-03-01 | Outpatient (CLI) | payer OTHER, BC ==
[~2017-03-01] MED LIST changes: +ASPI-319 PO; -ASPI81TA21 PO
== END | disposition home or self-care (01) ==
LOC: C.LABSPEC 17:33
PROVIDERS: ATTEND Physician Assistant Medical
DX: K21.9 Gastro-esophageal reflux disease without esophagitis (principal); R19.7 Diarrhea, unspecified; R14.3 Flatulence; R11.2 Nausea with vomiting, unspecified

== ENCOUNTER → 2017-04-13 | Outpatient (CLI) | payer OTHER, BC ==
[~2017-04-13] MED LIST changes: -ASPI-319 PO; +ASPI81TA21 PO
[2017-04-13 14:10] LABS: HEMOGLOBIN A1C 7.6 % (4.5-5.6)
[2017-04-13 14:20] LABS: ALBUMIN 3.8 gm/dl (3.4-5.0); BLOOD UREA NITROGEN 20 mg/dl (7-18); CALCIUM 10.3 mg/dl (8.5-10.1); CARBON DIOXIDE 29 mmol/L (21-32); GLUCOSE 121 mg/dl (70-99); POTASSIUM 3.7 mmol/L (3.5-5.1); SODIUM 139 mmol/L (136-145)
== END | disposition home or self-care (01) ==
LOC: C.LABBC 09:32
PROVIDERS: ATTEND Internal Medicine Endocrinology, Diabetes & Metabolism
DX: N18.3 Chronic kidney disease, stage 3 (moderate) (principal); E11.22 Type 2 diabetes mellitus with diabetic chronic kidney disease

== ENCOUNTER → 2017-05-01 | Outpatient (CLI) | payer OTHER, BC | END | disposition home or self-care (01) | LOC: C.LAB1850 12:01 | PROVIDERS: ATTEND Internal Medicine Endocrinology, Diabetes & Metabolism | DX: E11.9 Type 2 diabetes mellitus without complications (principal); E55.9 Vitamin D deficiency, unspecified ==

== ENCOUNTER → 2017-05-26 | Outpatient (CLI) | payer OTHER, BC ==
[2017-05-26 16:40] LABS: ALBUMIN 3.7 gm/dl (3.4-5.0); ALT/SGPT 35 U/L (12-78); AST/SGOT 24 U/L (15-37); BLOOD UREA NITROGEN 20 mg/dl (7-18); CALCIUM 10.1 mg/dl (8.5-10.1); CARBON DIOXIDE 28 mmol/L (21-32); CREATININE 1.18 mg/dl (0.60-1.20); GLUCOSE 127 mg/dl (70-99); POTASSIUM 3.7 mmol/L (3.5-5.1); SODIUM 139 mmol/L (136-145)
[2017-05-26 16:43] LABS: ALKALINE PHOSPHATASE 112 U/L (45-117); CHOLESTEROL 146 mg/dl (0-200); LDL CHOLESTEROL CALCULATED 62 mg/dl; TOTAL PROTEIN 6.9 gm/dl (6.4-8.2)
[2017-05-26 17:46] LABS: BASO % 0.4 %; BASO ABS # 0.04 K/uL (0-0.2); EOS ABS # 0.19 K/uL (0-0.5); HEMATOCRIT 42.1 % (37-47); HEMOGLOBIN 14.2 g/dL (12.0-16.0); IG# 0.03 K/uL (0.00-0.02); LYMPH % 20.7 %; LYMPH ABS # 1.99 K/uL (1.2-3.4); MEAN CELL VOLUME 90.3 fL (80-100); MEAN CORPUSCULAR HEMOGLOBIN 30.5 pg (25-34); MEAN CORPUSCULAR HGB CONC 33.7 g/dl (32-36); MEAN PLATELET VOLUME 12.5 fL (7.4-10.4); MONO % 6.1 %; MONO ABS # 0.59 K/uL (0.11-0.59); NEUT % 70.5 %; NEUT ABS # 6.77 K/uL (1.4-6.5); PLATELET COUNT 216 K/uL (130-400); RED CELL DISTRIBUTION WIDTH CV 13.1 % (11.5-14.5); RED CELL DISTRIBUTION WIDTH SD 43.2 fL (36.4-46.3); WHITE BLOOD COUNT 9.61 K/uL (4.8-10.8)
[2017-05-27 07:20] LABS: HEMOGLOBIN A1C 7.7 % (4.5-5.6)
== END | disposition home or self-care (01) ==
LOC: C.LABBC 13:46
PROVIDERS: ATTEND Internal Medicine Pulmonary Disease
DX: J45.909 Unspecified asthma, uncomplicated (principal); G47.33 Obstructive sleep apnea (adult) (pediatric); E78.5 Hyperlipidemia, unspecified; I10 Essential (primary) hypertension; E11.9 Type 2 diabetes mellitus without complications; Z79.4 Long term (current) use of insulin

== ENCOUNTER → 2017-07-03 | Outpatient (CLI) | payer OTHER, BC ==
[~2017-07-03] MED LIST changes: +ASPI-319 PO; -ASPI81TA21 PO
--- NOTE | 2017-07-05 15:04 | MAMMOGRAPHY REPORT ---
BILATERAL DIGITAL SCREENING MAMMOGRAM TOMOSYNTHESIS WITH CAD: 07/03/2017 CLINICAL HISTORY: Routine screening. Patient has no complaints. TECHNIQUE: Breast tomosynthesis in addition to standard 2D mammography was performed. Current study was also evaluated with a Computer Aided Detection (CAD) system. COMPARISON: Comparison is made to exams dated: 07/20/2016 mammogram, 06/30/2016 mammogram, 09/02/2013 cale mogram, 08/31/2012 mammogram, 08/30/2011 mammogram - [facility], and 08/04/2008. BREAST COMPOSITION: There are scattered areas of fibroglandular density in both breasts. FINDINGS: There are a few residual calcifications near the biopsy site in the lower inner posterior right breast, for which additional spot magnification views are recommended. A 6 mm nodular asymmetr y is seen in the lateral, middle one third of the left breast on the cc view (tomosynthesis slice 23/ 90), for which additional spot compression tomosynthesis views and possible ultrasound are recommende d. This may project inferiorly based on the tomosynthesis localizer bar. No other suspicious mass, architectural distortion or cluster of microcalcifications is seen. IMPRESSION: ACR BI-RADS CATEGORY 0: INCOMPLETE EVALUATION: NEED ADDITIONAL IMAGING EVALUATION The calcifications near the biopsy site in the lower inner right breast and 6 mm nodular asymmetry in the lateral left breast need additional imaging evaluation. The patient will be called to schedule an appointment. Approximately 10% of breast cancers are not detected with mammography. A negative mammographic report should not delay biopsy if a clinically suggestive mass is present. Madison Barry M.D. ay/:07/05/2017 07:49:13 Pellet Press Operator: Melissa MEHTA(Kriss)(Rivas), [facility] letter sent: Addl Imaging 0 BI-RADS Code: ACR BI-RADS Category 0: Incomplete Evaluation: Need Additional Imaging Evaluation
== END | disposition home or self-care (01) ==
LOC: C.MAMM 11:30
PROVIDERS: ATTEND Obstetrics & Gynecology
DX: Z12.31 Encounter for screening mammogram for malignant neoplasm of breast (principal); R92.1 Mammographic calcification found on diagnostic imaging of breast; N64.89 Other specified disorders of breast

== ENCOUNTER → 2017-07-13 | Outpatient (CLI) | payer OTHER, BC | END | disposition home or self-care (01) | LOC: C.LABBC 10:33 | PROVIDERS: ATTEND Internal Medicine Cardiovascular Disease | DX: I25.10 Atherosclerotic heart disease of native coronary artery without angina pectoris (principal) ==

== ENCOUNTER → 2017-07-19 | Outpatient (CLI) | payer OTHER, BC ==
--- NOTE | 2017-07-20 14:17 | MAMMOGRAPHY REPORT ---
BILATERAL DIGITAL DIAGNOSTIC MAMMOGRAM TOMOSYNTHESIS AND TARGETED BILATERAL ULTRASOUND: 07/19/2017 CLINICAL HISTORY: 67-year-old woman called back from screening mammography for calcifications near th e biopsy marker clip in the lower inner right breast, and a 6 mm nodular asymmetry in the lateral lef t breast. 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 Family history of breast cancer = mother . TECHNIQUE: Spot magnification right CC, ML; spot compression tomosynthesis left CC and MLO views were obtained. COMPARISON: Comparison is made to exams dated: 07/20/2016 mammogram, 07/03/2017 mammogram, 07/20/2016 st ereotactic biopsy, 07/11/2016 mammogram, 06/30/2016 mammogram, and 09/02/2013 mammogram - [facility]. BREAST COMPOSITION: There are scattered areas of fibroglandular density in both breasts. FINDINGS: The spot magnification views of the right breast demonstrate a dumbbell-shaped biopsy marke r clip in the lower inner middle one third of the breast. There are 2 residual calcifications near t he biopsy site and a few benign coarse calcifications visualized in the lower inner right breast. Cu rrently, no suspicious grouping or cluster of calcifications are identified. No obvious mass near th e biopsy site. A 3.7 mm nodular asymmetry seen slightly posterior and lateral to the biopsy marker c lip on the spot magnification CC view that could represent normal tissue although additional evaluati on with ultrasound was performed throughout the medial right breast. The spot compression tomosynthesis views of the left breast demonstrate diffuse nodularity throughout the lateral left breast, with multiple circumscribed round and oval masses. There are also a few sc attered punctate microcalcifications. No definite suspicious spiculated or irregular mass, focal are a of architectural distortion or suspicious microcalcifications. Further evaluation with ultrasound was performed throughout the lateral left breast. Targeted ultrasound was performed throughout the lateral left breast and medial right breast. Severa l benign-appearing circumscribed subcentimeter masses are seen in the lateral left breast on ultrasou nd including a benign anechoic simple cyst in the 4:00 left breast, 3 cm from the nipple, measuring 3 .8 x 2.7 x 3.0 mm. There is an oval circumscribed hypoechoic solid versus cystic mass in the 12:00 l eft breast, 1 cm from the nipple, measuring 7.7 x 3.5 x 7.7 mm. A third hypoechoic round circumscrib ed solid versus cystic mass in the 1:00 left breast, 9 cm from the nipple measures 4.6 x 4.0 x 4.6 mm . It is unclear if any of these masses correspond with the mammographic nodular asymmetry but there is no evidence of a suspicious solid mass on ultrasound. Therefore, a short interval follow-up left diagnostic tomosynthesis mammogram and repeat targeted ultrasound in the 1:00 and 12:00 axes is recom mended to ensure stability in 6 months. Targeted ultrasound was also performed at the medial right breast. Sonographically normal tissue is seen without a suspicious solid or cystic mass. IMPRESSION: ACR-BI-RADS CATEGORY 3: PROBABLY BENIGN, TARGETED ULTRASOUND ACR-BI-RADS CATEGORY 3: PRO BABLY BENIGN 1. There are 2 remaining calcifications near the biopsy marker clip in the lower inner quadrant of t he right breast. There are no new suspicious clustered microcalcifications in the right lower inner quadrant. Incidentally identified on the spot magnification view with a 3.7 mm nodular asymmetry for which ultrasound performed throughout the medial right breast demonstrates no suspicious sonographic correlate. However, a short interval follow-up right diagnostic mammogram including spot magnificat ion views and possible repeat ultrasound is recommended to ensure stability in 6 months of both the c alcifications in the nodular asymmetry. 2. There are multiple round and oval circumscribed subcentimeter masses in the lateral left breast m ammographically, with benign-appearing anechoic and hypoechoic circumscribed masses on ultrasound. G iven that not all of these masses meet the sonographic criteria for simple cyst, a short interval fol low-up left diagnostic tomosynthesis mammogram and repeat targeted ultrasound is recommended to ensur e stability in 6 months. These results and recommendations were discussed with the patient at the time of the exam. Approximately 10% of breast cancers are not detected with mammography. A negative mammographic report should not delay biopsy if a clinically suggestive mass is present. Madison Barry M.D. ay/:07/19/2017 21:40:02 Coppersmith Helper: Mitali Crystal, [facility] letter sent: Follow Up Recommended 3 BI-RADS Code: ACR-BI-RADS Category 3: Probably Benign Ultrasound BI-RADS: ACR-BI-RADS Category 3: Pr obably Benign
== END | disposition home or self-care (01) ==
LOC: C.MAMM 13:28
PROVIDERS: ATTEND Obstetrics & Gynecology
DX: R92.1 Mammographic calcification found on diagnostic imaging of breast (principal); N64.89 Other specified disorders of breast; N63.20 Unspecified lump in the left breast, unspecified quadrant

== ENCOUNTER → 2017-09-12 | Outpatient (CLI) | payer OTHER, BC | END | disposition home or self-care (01) | LOC: C.LAB1850 13:50 | PROVIDERS: ATTEND Internal Medicine Endocrinology, Diabetes & Metabolism ==

== ENCOUNTER 2020-07-24 19:02 | Inpatient (IN) ==
[2020-07-24] MEDS ORDERED: ACETAMINOPHEN 1,000 MG/100 ML VIAL IV STA (19:28)
[2020-07-24] MEDS ORDERED: FAMOTIDINE 20MG IV PUSH 20 MG/5 ML SYR IV STA (19:28)
[2020-07-24] MEDS ORDERED: SODIUM CHLORIDE 0.9% 1000ML 1,000 ML IV ONE (19:30)
[2020-07-24] MEDS ORDERED: ONDANSETRON INJ 2 MG/ML 2 ML VIAL IV STA (19:30)
[2020-07-24] MEDS ORDERED: MoRPHine SULFATE 4 MG/ML 1 ML CARP\\VIAL IV STA (19:30)
--- NOTE | 2020-07-24 20:04 | XRay Report ---
SINGLE VIEW CHEST CLINICAL HISTORY: Atypical chest pain. FINDINGS: An AP, portable, upright chest radiograph is compared to study dated 06/03/2020. The examinat ion is degraded by portable technique and apical lordotic positioning. The heart is enlarged noting a therosclerotic calcification of the thoracic aorta. The pulmonary vasculature is noncongested. Chroni c interstitial thickening is similar to previous. No airspace consolidation or large pleural effusion is identified. Apparent increase in density at the left lung base is related to overlying breast tis branden. No pneumothorax is seen. The bony thorax is grossly intact. IMPRESSION: Mild cardiomegaly with no acute cardiopulmonary abnormality. ACT 112: Negative or not required by law. Electronically signed by: Noam Bower M.D. 07/24/2020 8:02 PM
[2020-07-24 20:30] LABS: Basophils # (auto) 0.01 K/uL (0-0.2); Basophils % (auto) 0.1 %; Eosinophils # (auto) 0.04 K/uL (0-0.5); Eosinophils % (auto) 0.5 %; Immature Granulocytes # (auto) 0.03 K/uL (0.00-0.02); Immature Granulocytes % (auto) 0.3 %; Lymphocytes # (auto) 0.67 K/uL (1.2-3.4); Lymphocytes % (auto) 7.8 %; Mean Corpuscular Hemoglobin 28.4 pg (25-34); Mean Corpuscular Hgb Conc 32.6 g/dL (32-36); Mean Corpuscular Volume 87.2 fL (80-100); Mean Platelet Volume 11.6 fL (7.4-10.4); Monocytes # (auto) 0.16 K/uL (0.11-0.59); Monocytes % (auto) 1.9 %; Neutrophils # (auto) 7.67 K/uL (1.4-6.5); Neutrophils % (auto) 89.4 %; Platelet Count 222 K/uL (130-400); RDW Coefficient of Variation 14.6 % (11.5-14.5); RDW Standard Deviation 46.3 fL (36.4-46.3); Red Blood Count 4.93 M/uL (4.2-5.4); White Blood Count 8.58 K/uL (4.8-10.8)
[2020-07-24 20:48] LABS: Alanine Aminotransferase 179 U/L (12-78); Albumin Level 3.8 gm/dl (3.4-5.0); Aspartate Aminotransferase 368 U/L (15-37); BUN Creatinine Ratio 19.3 (10-20); Bilirubin Direct 1.1 mg/dl (0-0.2); Blood Urea Nitrogen 25 mg/dl (7-18); Calcium 9.6 mg/dl (8.5-10.1); Carbon Dioxide 28 mmol/L (21-32); Chloride 107 mmol/L (98-107); Creatinine Clr Calc Pharmacy 48.3 ml/min; Est GFR (African American) 48.7 ml/min; Glucose 156 mg/dl (70-99); Lipase 367 U/L (73-393); Sodium 141 mmol/L (136-145)
[2020-07-24 21:01] LABS: Albumin Globulin Ratio 1.2 (0.9-2); Alkaline Phosphatase 185 U/L (45-117); Bilirubin,Total 1.9 mg/dl (0.2-1); Globulin 3.2 gm/dl (2.5-4.0); Troponin I < 0.015 ng/ml (0-0.045)
[2020-07-24] MEDS ORDERED: OPTIRAY 320 100ml IV ONE (21:39)
--- NOTE | 2020-07-24 22:11 | CT Scan Report ---
CT SCAN OF THE ABDOMEN AND PELVIS WITH IV CONTRAST CLINICAL HISTORY: Epigastric and right upper quadrant abdominal pain. COMPARISON STUDY: Abdominal CT dated 01/01/2015. TECHNIQUE: Following the IV administration of 89 cc of Optiray 320, CT scan of the abdomen and pelvi s is performed from the lung bases to the proximal femora. Images are reviewed in the axial, sagittal , and coronal planes. IV contrast was administered without complication. A dose lowering technique wa s utilized adhering to the principles of ALARA. CT DOSE: 1278.62 mGy.cm FINDINGS: Lung bases: The heart is normal in size and without pericardial effusion. There are coronary artery c alcifications. Small hiatal hernia is noted. The lung bases are clear noting bibasilar scarring/atele ctasis. Liver: The contrast-enhanced liver is normal in size, contour, and attenuation. There is no intrahepa tic biliary ductal dilatation. The hepatic veins and portal veins are patent. Gallbladder: The gallbladder is distended. There is mild gallbladder wall thickening and faint perich olecystic stranding. Spleen: Normal in size and attenuation. Pancreas: Unremarkable. Adrenal glands: Unremarkable. Kidneys: The contrast enhanced kidneys demonstrate cortical atrophy and are without hydronephrosis. T here are small bilateral extrarenal pelvises. The kidneys enhance symmetrically. Abdominal vasculature: The abdominal aorta is normal in course and caliber noting moderate to advance d atherosclerotic calcification. Bowel: There is moderate diverticulosis of the left colon without CT evidence of acute diverticulitis . No bowel obstruction is seen. The appendix is well-visualized and normal. Peritoneum: There is no intraperitoneal free air or abdominal ascites. There is a fat-containing umbi lical hernia. Lymphadenopathy: None. Pelvic viscera: The bladder is normal as visualized. The uterus is surgically absent. No adnexal lesi on is seen. Skeletal structures: The skeletal structures are osteopenic. There is moderate lumbosacral spondylosi s. A large disc herniation is noted at L4-L5. No lytic or blastic lesions are seen. IMPRESSION: 1. The gallbladder is distended and abnormal in appearance. Correlate with clinical findings and labo ratory studies for evidence of acute cholecystitis. Correlation with a right upper quadrant ultrasoun d is recommended. 2. There is moderate diverticulosis of left colon without CT evidence of acute diverticulitis. 3. Additional findings as above. ACT 112: Negative or not required by law. Electronically signed by: Noam Bower M.D. 07/24/2020 10:10 PM
[2020-07-24] MEDS ORDERED: PIPERACILL/TAZOBAC CONSULT ACTIVE PRN (22:29)
[2020-07-24] MEDS ORDERED: PIPERACILLIN/TAZOBACTAM 4.5 GM/120 ML BAG IV ONE (22:29)
[2020-07-24] MEDS ORDERED: MoRPHine SULFATE 4 MG/ML 1 ML CARP\\VIAL ONE (22:43)
[2020-07-24 22:48] LABS: Appearance Urine Clear (Clear); Bilirubin Urine Negative (Negative); Blood Urine Negative (Negative); Color Urine Dark Yellow; Glucose Urine UA Negative (Negative); Ketones Urine Negative (Negative); Leukocyte Esterase Urine Negative (Negative); Nitrite Urine Negative (Negative); Protein Urine Negative (Negative); Specific Gravity Urine 1.019 (1.000-1.030); Urobilinogen Urine Negative (Negative); pH Urine 5.5 (4.5-7.5)
--- NOTE | 2020-07-24 23:10 | Surgery Consultation ---
Date of Consultation July 24, 2020 Assessment & Plan (1) Cholecystitis: I discussed the case with the treating emergency room physician and he is indicated he is going asked the hospitalist to admit the patient to the hospital. Recommend proceeding as follows: As patient's LFTs are elevated there is concern the patient may have choledocholithiasis. We will follow up on the patient's ultrasound that is ordered and she may require an MRCP. If the MRCP does reveal any concern for choledocholithiasis a GI consultation will be required for possible ERCP but this is yet to be determined. Recommend keeping patient n.p.o. until after her gallbladder ultrasound and MRCP is completed. Provide analgesics Provide antiemetics Follow serial labs particularly paying attention to her LFTs Recommend initiating antibiotics. She has received a dose of Zosyn in the emergency department. Provide hydration with IV fluids Patient does have a significant cardiac history suffering a heart attack about 15 years ago for which she takes aspirin and Plavix. Patient is indicated that she has had her Plavix and aspirin stopped for surgical procedures most recently a carpal tunnel release performed several weeks ago. Prior to having the patient undergo cholecystectomy it was beneficial to stop her Plavix for a few days to decrease the risk of perioperative bleeding. Does appear the patient's cardiac status is stable at the present time as she has no symptoms or signs of unstable angina or CHF. Does appear the patient may benefit from cholecystectomy. Timing of this will be dependent on results of subsequent LFTs, results of gallbladder ultrasound, results of MRCP, as well as input from gastroenterology if needed. 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 She presented to [facility] emergency department secondary to abdominal pain. Patient notes that her pain began earlier this afternoon approximately 2 hours after eating a meal. The pain was located primarily in the upper abdomen in the epigastric and somewhat on the left side of her abdomen. She also notes some right upper quadrant abdominal pain with some radiation to the shoulder. She did have some chills but denied any fevers. She did have associated nausea vomiting but denies any diarrhea. I questioned her about similar symptoms over the past several weeks to months which she denied. Questioned her about previous abdominal surgeries and she reports having a hysterectomy. She did not identify any palliative or provocative factors. In the emergency department the patient had labs and imaging which independently reviewed. She did have a chest x-ray that showed no evidence of pneumonia or CHF.Patient had a CT scan of her abdomen which showed no intrahepatic biliary ductal dilatation however her gallbladder was noted to be distended with gallbladder wall thickening and some pericholecystic stranding. CBC revealed her white blood cell count, hemoglobin, hematocrit, and platelet count were all within normal range. A chemistry profile revealed her sodium was 141, potassium 3.0, BUN 25, and creatinine 1.2. Her LFTs were noted to be elevated with a total bilirubin of 1.9 and a direct bilirubin of 1.1. Her AST was 368 and her ALT was 179 with an alkaline phosphatase of 185. Her lipase was noted to be normal and cardiac enzymes were not elevated. Patient did have an EKG did not show a at any evidence of acute ischemic changes. A Covid test has been ordered and is pending. She also has a gallbladder ultrasound ordered which is pending. The patient reports taking aspirin and Plavix for history of myocardial infarction approximately 15 years ago. At this time the patient reported having neck pain along with pain radiating down her shoulders. Says she did have a stent placed at [facility]. Since that time she has not had any similar symptoms in her current presentation is not similar to what she experienced when she had her heart attack. She does note that she can walk easily 1 mile on a flat surface without chest pain or shortness of breath. She says she does admit to some shortness of breath when going up steps. She follows locally with Dr. Valentin Long. At the time of my interview the patient was resting comfortably in bed in no distress and her pain had resolved. Allergies Allergy/AdvReac Type Severity Reaction Status Date / Time No Known Drug Allergies Allergy Unknown . Verified 07/24/20 22:08 Bae Pepper Allergy Mild itchy rash Uncoded 07/24/20 22:09 Home Medications Medication Instructions Recorded Confirmed Type hydrocodone-homatropine 5 mg-1.5 1 tab PO DAILY PRN #30 tab 11/12/18 07/24/20 History mg tablet hydrochlorothiazide 25 mg tablet 25 mg PO DAILY PRN #30 tab 01/28/19 07/24/20 History ezetimibe 10 mg tablet 10 mg PO DAILY #90 tab 10/14/19 07/24/20 Rx fluoxetine 20 mg capsule 20 mg PO DAILY #90 cap 10/14/19 07/24/20 Rx indapamide 1.25 mg tablet 1.25 mg PO DAILY #90 tab 10/14/19 07/24/20 Rx losartan 100 mg tablet 100 mg PO DAILY #90 tab 10/14/19 07/24/20 Rx metoprolol succinate 100 mg 100 mg PO DAILY #90 tab 10/14/19 07/24/20 Rx tablet,extended release 24 hr albuterol sulfate 90 mcg/actuation 2 inh INHALATION Q4H PRN #8.5 g 11/06/19 07/24/20 Rx aerosol inhaler azelastine 137 mcg (0.1 %) nasal 1 spray INTNAS BID PRN 01/15/20 07/24/20 History spray aerosol fluticasone propionate 50 1 spray INTRANASAL BID PRN #1 gm 01/15/20 07/24/20 History mcg/actuation nasal spray,suspension mometasone 0.1 % topical cream 1 applic TOPICAL BID PRN #1 gm 01/15/20 07/24/20 History atorvastatin 80 mg tablet 80 mg PO DAILY #90 tab 01/17/20 07/24/20 Rx budesonide-formoterol HFA 160 2 inh INHALATION BID #3 inhaler 01/30/20 07/24/20 Rx mcg-4.5 mcg/actuation aerosol inhaler clopidogrel 75 mg tablet 75 mg PO DAILY #90 tab 01/30/20 07/24/20 Rx lansoprazole 30 mg capsule,delayed 30 mg PO DAILY #90 cap 01/30/20 07/24/20 Rx release metformin 500 mg tablet,extended 500 mg PO DAILY #90 tab 01/30/20 07/24/20 Rx release 24 hr nitroglycerin 0.4 mg sublingual 0.4 mg SL .COMPLEX #20 tab 01/30/20 07/24/20 Rx tablet glipizide 5 mg tablet, extended 5 mg PO DAILY #90 tab 04/07/20 07/24/20 Rx release 24 hr calcium carbonate-vitamin D2 1 tab PO QAM 06/03/20 07/24/20 History fluocinonide 0.05 % topical 1 applic TOPICAL BID PRN #60 ml 06/30/20 07/24/20 Rx solution Tresiba FlexTouch U-100 20 unit SQ QPM 07/24/20 07/24/20 History Victoza 3-Ant 1.8 mg SUBCUT QAM 07/24/20 07/24/20 History aspirin [Aspir-Low] 81 mg PO DAILY 07/24/20 07/24/20 History Patient History Medical History Arthritis Asthma RELATED TO SEASONAL/ENVIRONMENTAL ALLERGIES (HAS NOT USED RESCUE INHALER FOR A LONG TIME) Benign colonic polyp Diabetic retinopathy RT EYE (GETS INJECTION) GERD (gastroesophageal reflux disease) History of kidney stones Hx of gastric ulcer BLEED Hyperlipidemia Hypertension Myocardial Infarction AT AGE 53 Sleep apnea NO DEVICE CURRENLTY USED T2DM (type 2 diabetes mellitus) Thrombophlebitis DURING AROUND AGE 29 Surgical History H/O total hysterectomy History of cardiac cath History of cataract surgery RT/LEFT History of colonoscopy (2013) History of dilation and curettage History of esophagogastroduodenoscopy (EGD) History of heart artery stent AT AGE 53>1 STENT PLACED AT [facility] (FOLLOWS WITH DR. LONG) History of lithotripsy History of tonsillectomy and adenoidectomy History of tooth extraction History of tubal ligation S/P subtotal parathyroidectomy Family History Unknown Arthritis Allergic rhinitis Father Prostate cancer Cardiac disorder Kidney stones Hypertension Mother Diabetes Hypertension Family history of diabetes mellitus Brother Diabetes Cancer Family history of diabetes mellitus Grandfather Cardiac disorder Other No family history of adverse response to anesthesia Social History Smoking Status: Never smoker Second Hand Exposure: Yes (IN THE PAST); Hx Alcohol Use: Yes Preferred Language: Hebrew [id number] Java Developer Required: No Beliefs That Will Affect Care: None marital status: Current Living Situation: Spouse current occupational status: retired Feels Safe at Home: Yes Assistive Devices: Glasses Review of Systems Constitutional: + chills; no fever Eyes: no diplopia Ear, Nose, Mouth, Throat: no ear pain Respiratory: no cough and no dyspnea Cardiovascular: no chest pain Gastrointestinal: + abdominal pain, + nausea and + vomiting; no diarrhea/loose stools Genitourinary: no dysuria Musculoskeletal: no back pain Integumentary: no rash Neurologic: no localized weakness Physical Exam Constitutional: well developed and well nourished; no acute distress Eyes: + anicteric sclerae; no conjunctival abnormality ENMT: Ears: no hearing impairment Neck: trachea midline Respiratory: normal respiratory effort, lungs clear to auscultation Cardiovascular: Rate/Rhythm: regular rate and regular rhythm Gastrointestinal (Abdomen): Patient's abdomen is rotund but soft. Bowel sounds are present. There is no rebound tenderness or guarding, however there is pain noted in the upper abdomen in the left upper quadrant, epigastric area, and right upper quadrant. Jc sign is noted to be positive. Musculoskeletal: No calf tenderness Skin: no rashes, warm and dry Neurologic: moves all extremities Psychiatric: A+Ox3, euthymic affect Results & Data ([facility]) Vital Signs (Past 12 Hours) Vital Signs Temp Pulse Pulse Resp BP BP Pulse Ox 07/24/20 20:03 77 22 145/77 H 98 07/24/20 19:10 36.6 C 107 H 16 168/84 H 99 PG Care Time/CCT Total # of Minutes Spent Total Time Spent with Patient: Total time spent is greater than 50% in coordination of care (as documented) at patient's floor/unit and/or counseling patient: Coding Level of Care Code 70578 Inpt Consult Level 5 Diagnoses Cholecystitis K81.9
--- NOTE | 2020-07-24 23:50 | Ultrasound Report ---
ULTRASOUND RIGHT UPPER QUADRANT ABDOMEN CLINICAL HISTORY: Right upper quadrant abdominal pain. Elevated bilirubin. COMPARISON STUDY: Abdominal CT dated 07/24/2020. Abdominal ultrasound dated 07/18/2016 TECHNIQUE: Real-time, grayscale, and color flow sonography of the right upper quadrant of the abdomen was performed. Images are reviewed in the transverse and longitudinal planes. FINDINGS: Liver: The liver is normal in size and heterogeneous in echotexture. There is no intrahepatic biliary ductal dilatation. The main portal vein is patent. Gallbladder: The gallbladder is distended. No shadowing gallstones are identified. The gallbladder wa ll appears mildly thickened and edematous. No pericholecystic fluid is identified. A sonographic Murp hy's sign could not be assessed as the patient received analgesia. The common bile duct measures up t o 0.9 cm in diameter. Pancreas: Visualized portions of the pancreatic head and body are normal in appearance. The splenic v ein is patent. Right kidney: Survey images of the right kidney demonstrate cortical atrophy. Echotexture is normal. There is no hydronephrosis. Mild fullness of the right renal collecting system is similar to previous . Ascites: None. IMPRESSION: 1. The gallbladder is mildly distended, and the wall appears mildly thickened and edematous. No shado wing gallstones are identified. A sonographic Jc's sign could not be evaluated. These findings co uld be related to adjacent hepatocellular disease. Findings are equivocal for acute cholecystitis whi ch is not excluded. If there is strong clinical concern for acute cholecystitis a nuclear hepatobilia ry scan could be considered for further evaluation. 2. The common bile duct is mildly dilated measuring up to 9 mm in diameter, and measured up to 7 mm i n 2017. There is no significant intrahepatic ductal dilatation. 3. Hepatic echotexture is heterogeneous. ACT 112: Negative or not required by law. Electronically signed by: Noam Bower M.D. 07/24/2020 11:49 PM
--- NOTE | 2020-07-25 00:02 | Emergency Department Note ---
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 She does report she still has her gallbladder and denies any obvious history of any biliary colic. Denies any shortness of breath, fevers, diarrhea or urinary symptoms. She reports her last bowel movement was yesterday and was normal. She denies any known COVID-19 exposures. She reports being fully vaccinated since March. On arrival the patient is uncomfortable but in no acute distress, afebrile, with stable vital signs. She has mild-moderate epigastric and right upper quadrant tenderness with positive Jc sign. Otherwise there is no rebound or guarding. EKG without overt acute ischemia. Chest x-ray negative for acute cardiopulmonary process. WBC, H/H and platelets within normal limits. Chemistry without metabolic acidosis. LFTs are suggestive of strep to pattern with total bilirubin 1.9, direct bilirubin 1.1 and AST, ALT and alk phos 368, 179 and 185, respectively. Troponin negative/undetectable. Lipase is not elevated. UA without evidence of infection. CT of the abdomen pelvis was performed and demonstrates distended gallbladder and pericholecystic stranding suggestive of cholecystitis. Formal gallbladder ultrasound performed and again demonstrates distended and thickened edematous gallbladder wall without shadowing gout or stones identified. CBD is mildly dilated at 9 mm. Patient was ordered for Zosyn given cholecystitis. Prior to gallbladder US, case was reviewed with general surgery on-call, gen jeramie Paula surgery PAC with Dr. Allen general surgery. Agrees with plan for admission to medicine with IV antibiotics and MRCP to further evaluate for choledocholithiasis. Patient was updated on her imaging results and plan and she was in agreement with admission. Case was discussed with Dr. Ruggiero, [facility] hospitalist, who will evaluate the patient for admission. Of note, CT addendum reviewed with radiology regarding incidental previously seen adrenal nodule, which appears hypervascular. Admitting resident updated. Triage Nursing notes reviewed and agree them. Prior medical records reviewed Vital Signs: reviewed and remarkable for no significant abnormalities Differential diagnosis: Appendicitis, ovarian cyst, ovarian torsion, ectopic , TOA, PID, infections, diverticulitis, UTI, obstruction, mesenteric ischemia, aortic pathology, inflammatory bowel disease, renal colic, PUD, pancreatitis, biliary pathology, hernia, volvulus, constipation, as well as other pathologies. ER treatment provided: See below. Diagnostics interpreted by me: ECG: Normal sinus rhythm, 81 bpm, no ectopy, no overt ST elevation or depression, QTC 457, QRS 70. Cardiac Monitoring: An order for continuous cardiac monitoring was placed and demonstrated Normal sinus rhythm, 81 bpm, no ectopy. Laboratory studies: See below Imaging studies: See below Consultation(s): Giorgio To, general surgery PAC with Dr. Allen general surgery. Dr. Ruggiero, [facility] hospitalist. 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 She does report she still has her gallbladder and denies any obvious history of any biliary colic. Denies any shortness of breath, fevers, diarrhea or urinary sym ptoms. She reports her last bowel movement was yesterday and was normal. She denies any known COVID-19 exposures. She reports being fully vaccinated since March. ROS: See above HPI for pertinent positives & negatives. A total of 10 systems reviewed and were otherwise negative. PAST MEDICAL HISTORY:See Below PAST SURGICAL HISTORY:See Below FAMILY HISTORY:See Below SOCIAL HISTORY:See Below HOME MEDICATIONS:See Below ALLERGIES:See Below VITALS:See Below PHYSICAL EXAMINATION: GENERAL: Awake, alert, uncomfortable-appearing, in no distress, BMI 38.2. HENT: Normocephalic, atraumatic. Oropharynx with dry mucous membranes and otherwise unremarkable. EYES: Normal conjunctiva. Sclera non-icteric. NECK: Supple. No nuchal rigidity. FROM. No JVD. RESPIRATORY: Clear to auscultation. CARDIAC: Regular rate, normal rhythm. Extremities warm and well perfused. Pulses equal. ABDOMEN: Soft, non-distended. Mild-moderate epigastric and right upper quadrant tenderness with positive Jc sign. No rebound or guarding. No masses. RECTAL: Deferred. MUSCULOSKELETAL: Chest examination reveals no tenderness. The back is symmetrical on inspection without obvious abnormality. There is no CVA tenderness to palpation. No joint edema. LOWER EXTREMITIES: Calves are equal size bilaterally and non-tender. No edema. No discoloration. NEURO: Normal sensorium. No sensory or motor deficits noted. SKIN: No rash or jaundice noted. Vlad Blanco MD Past Med/Surg History Medical History Arthritis Asthma RELATED TO SEASONAL/ENVIRONMENTAL ALLERGIES (HAS NOT USED RESCUE INHALER FOR A LONG TIME) Benign colonic polyp Diabetic retinopathy RT EYE (GETS INJECTION) GERD (gastroesophageal reflux disease) History of kidney stones Hx of gastric ulcer BLEED Hyperlipidemia Hypertension Myocardial Infarction AT AGE 53 Sleep apnea NO DEVICE CURRENLTY USED T2DM (type 2 diabetes mellitus) Thrombophlebitis DURING AROUND AGE 29 Surgical History H/O total hysterectomy History of cardiac cath History of cataract surgery RT/LEFT History of colonoscopy (2013) History of dilation and curettage History of esophagogastroduodenoscopy (EGD) History of heart artery stent AT AGE 53>1 [place] [facility] [place]ARD[place] History of lithotripsy History of tonsillectomy and adenoidectomy History of tooth extraction History of tubal ligation S/P subtotal parathyroidectomy Family History Unknown Arthritis Allergic rhinitis Father Prostate cancer Cardiac disorder Kidney stones Hypertension Mother Diabetes Hypertension Family history of diabetes mellitus Brother Diabetes Cancer Family history of diabetes mellitus Grandfather Cardiac disorder Other No family history of adverse response to anesthesia Social History Smoking Status: Never smoker Second Hand Exposure: Yes (IN THE PAST); Hx Alcohol Use: Yes Alcohol type: wine Hx Substance Use: No Preferred Language: Burkinan Communication Ability: Effective [employer] Administrator Required: No Beliefs That Will Affect Care: None marital status: Current Living Situation: Spouse current occupational status: retired Other Information That Helps Us Care for You: No Feels Safe at Home: Yes Safety Concerns: Feels Safe At This Time Assistive Devices: None Allergies Allergies Allergy/AdvReac Type Severity Reaction Status Date / Time No Known Drug Allergies Allergy Unknown . Verified 07/24/20 22:08 Bae Pepper Allergy Mild itchy rash Uncoded 07/24/20 22:09 Home Meds Home Medications Medication Instructions Recorded Confirmed hydrocodone-homatropine 5 mg-1.5 1 tab PO DAILY PRN #30 tab 11/12/18 07/24/20 mg tablet hydrochlorothiazide 25 mg tablet 25 mg PO DAILY PRN #30 tab 01/28/19 07/24/20 azelastine 137 mcg (0.1 %) nasal 1 spray INTNAS BID PRN 01/15/20 07/24/20 spray aerosol fluticasone propionate 50 1 spray INTRANASAL BID PRN #1 gm 01/15/20 07/24/20 mcg/actuation nasal spray,suspension mometasone 0.1 % topical cream 1 applic TOPICAL BID PRN #1 gm 01/15/20 07/24/20 calcium carbonate-vitamin D2 1 tab PO QAM 06/03/20 07/24/20 Tresiba FlexTouch U-100 20 unit SQ QPM 07/24/20 07/24/20 Victoza 3-Ant 1.8 mg SUBCUT QAM 07/24/20 07/24/20 aspirin [Aspir-Low] 81 mg PO DAILY 07/24/20 07/24/20 Previous Rx's Medication Instructions Recorded ezetimibe 10 mg tablet 10 mg PO DAILY #90 tab 10/14/19 fluoxetine 20 mg capsule 20 mg PO DAILY #90 cap 10/14/19 indapamide 1.25 mg tablet 1.25 mg PO DAILY #90 tab 10/14/19 losartan 100 mg tablet 100 mg PO DAILY #90 tab 10/14/19 metoprolol succinate 100 mg 100 mg PO DAILY #90 tab 10/14/19 tablet,extended release 24 hr albuterol sulfate 90 mcg/actuation 2 inh INHALATION Q4H PRN #8.5 g 11/06/19 aerosol inhaler atorvastatin 80 mg tablet 80 mg PO DAILY #90 tab 01/17/20 budesonide-formoterol HFA 160 2 inh INHALATION BID #3 inhaler 01/30/20 mcg-4.5 mcg/actuation aerosol inhaler clopidogrel 75 mg tablet 75 mg PO DAILY #90 tab 01/30/20 lansoprazole 30 mg capsule,delayed 30 mg PO DAILY #90 cap 01/30/20 release metformin 500 mg tablet,extended 500 mg PO DAILY #90 tab 01/30/20 release 24 hr nitroglycerin 0.4 mg sublingual 0.4 mg SL .COMPLEX #20 tab 01/30/20 tablet glipizide 5 mg tablet, extended 5 mg PO DAILY #90 tab 04/07/20 release 24 hr fluocinonide 0.05 % topical 1 applic TOPICAL BID PRN #60 ml 06/30/20 solution Results & Data (ED) Vital Signs Vital Signs - 24 hr 07/24/20 19:10 07/24/20 20:03 07/24/20 23:00 Temperature 36.6 C Temperature Source Temporal Artery Scan Pulse Rate 107 H 94 H Pulse Rate [Right Finger] 77 Pulse Rhythm [Right Finger] Regular Pulse Strength [Right Finger] Normal Respiratory Rate 16 22 24 Respiratory Effort / Characteristics Non-Labored Spontaneous Respiratory Depth Normal Normal Blood Pressure 168/84 H 155/87 H Blood Pressure [Right Arm] 145/77 H Blood Pressure Mean 112 109 Blood Pressure Mean [Right Arm] 99 Blood Pressure Position Sitting Pulse Oximetry 99 98 95 Oxygen Delivery Method Room Air Room Air Room Air Sepsis Recent Fever Within 48 Hours No Sepsis New/Unexplained Change in Mental Status No Sepsis Action Taken by Nursing No Action Required Laboratory Data Attestation: I reviewed the patient's lab results. Result diagrams: 07/24/20 20:10 07/24/20 20:10 Lab Results 07/24/20 07/24/20 07/24/20 Range/Units 20:10 20:10 Unknown WBC 8.58 (4.8-10.8) K/uL RBC 4.93 (4.2-5.4) M/uL Hgb 14.0 (12.0-16.0) g/dL Hct 43.0 (37-47) % MCV 87.2 (80-100) fL MCH 28.4 (25-34) pg MCHC 32.6 (32-36) g/dL RDW Std Deviation 46.3 (36.4-46.3) fL RDW Coeff of Diana 14.6 H (11.5-14.5) % Plt Count 222 (130-400) K/uL MPV 11.6 H (7.4-10.4) fL Immature Gran % (Auto) 0.3 % Neut % (Auto) 89.4 % Lymph % (Auto) 7.8 % [place] % (Auto) 1.9 % Eos % (Auto) 0.5 % Baso % (Auto) 0.1 % Neut # (Auto) 7.67 H (1.4-6.5) K/uL Lymph # (Auto) 0.67 L (1.2-3.4) K/uL [place] # (Auto) 0.16 (0.11-0.59) K/uL Eos # (Auto) 0.04 (0-0.5) K/uL Baso # (Auto) 0.01 (0-0.2) K/uL Immature Gran # (Auto) 0.03 H (0.00-0.02) K/uL Sodium 141 (136-145) mmol/L Potassium 3.0 L (3.5-5.1) mmol/L Chloride 107 (98-107) mmol/L Carbon Dioxide 28 (21-32) mmol/L Anion Gap 7.0 (3-11) BUN 25 H (7-18) mg/dl Creatinine 1.28 H (0.6-1.2) mg/dl Est Cr Clr Drug Dosing 48.3 ml/min Est GFR ( Amer) 48.7 ml/min Est GFR (Non-Af Amer) 42.0 ml/min BUN/Creatinine Ratio 19.3 (10-20) Glucose 156 H (70-99) mg/dl Calcium 9.6 (8.5-10.1) mg/dl Total Bilirubin 1.9 H D (0.2-1) mg/dl Direct Bilirubin 1.1 H (0-0.2) mg/dl AST 368 H (15-37) U/L ALT 179 H (12-78) U/L Alkaline Phosphatase 185 H (45-117) U/L Troponin I < 0.015 (0-0.045) ng/ml Total Protein 7.0 (6.4-8.2) gm/dl Albumin 3.8 (3.4-5.0) gm/dl Globulin 3.2 (2.5-4.0) gm/dl Albumin/Globulin Ratio 1.2 (0.9-2) Lipase 367 (73-393) U/L Urine Color Dark Yellow Urine Appearance Clear (Clear) Urine pH 5.5 (4.5-7.5) Ur Specific [place] 1.019 (1.000-1.030) Urine Protein Negative (Negative) Urine Glucose (UA) Negative (Negative) Urine Ketones Negative (Negative) Urine Blood Negative (Negative) Urine Nitrite Negative (Negative) Urine Bilirubin Negative (Negative) Urine Urobilinogen Negative (Negative) Ur Leukocyte Esterase Negative (Negative) COVID-19 Eval Order SARS-CoV-2 (PCR) (Negative) 07/25/20 07/25/20 Range/Units 00:05 00:05 WBC (4.8-10.8) K/uL RBC (4.2-5.4) M/uL Hgb (12.0-16.0) g/dL Hct (37-47) % MCV (80-100) fL MCH (25-34) pg MCHC (32-36) g/dL RDW Std Deviation (36.4-46.3) fL RDW Coeff of Diana (11.5-14.5) % Plt Count (130-400) K/uL MPV (7.4-10.4) fL Immature Gran % (Auto) % Neut % (Auto) % Lymph % (Auto) % [place] % (Auto) % Eos % (Auto) % Baso % (Auto) % Neut # (Auto) (1.4-6.5) K/uL Lymph # (Auto) (1.2-3.4) K/uL [place] # (Auto) (0.11-0.59) K/uL Eos # (Auto) (0-0.5) K/uL Baso # (Auto) (0-0.2) K/uL Immature Gran # (Auto) (0.00-0.02) K/uL Sodium (136-145) mmol/L Potassium (3.5-5.1) mmol/L Chloride (98-107) mmol/L Carbon Dioxide (21-32) mmol/L Anion Gap (3-11) BUN (7-18) mg/dl Creatinine (0.6-1.2) mg/dl Est Cr Clr Drug Dosing ml/min Est GFR ( Amer) ml/min Est GFR (Non-Af Amer) ml/min BUN/Creatinine Ratio (10-20) Glucose (70-99) mg/dl Calcium (8.5-10.1) mg/dl Total Bilirubin (0.2-1) mg/dl Direct Bilirubin (0-0.2) mg/dl AST (15-37) U/L ALT (12-78) U/L Alkaline Phosphatase (45-117) U/L Troponin I (0-0.045) ng/ml Total Protein (6.4-8.2) gm/dl Albumin (3.4-5.0) gm/dl Globulin (2.5-4.0) gm/dl Albumin/Globulin Ratio (0.9-2) Lipase (73-393) U/L Urine Color Urine Appearance (Clear) Urine pH (4.5-7.5) Ur Specific [place] (1.000-1.030) Urine Protein (Negative) Urine Glucose (UA) (Negative) Urine Ketones (Negative) Urine Blood (Negative) Urine Nitrite (Negative) Urine Bilirubin (Negative) Urine Urobilinogen (Negative) Ur Leukocyte Esterase (Negative) COVID-19 Eval Order Covid19 at [facility] SARS-CoV-2 (PCR) NEGATIVE (Negative) Administered Medications Potassium Chloride/Sodium Chloride (Normal Saline W/20 Meq Kcl) 20 meq in 1,000 mls @ 100 mls/hr IV .Q10H SAUL Stop: 08/24/20 02:44 Last Admin: 07/25/20 03:16 Dose: 100 mls/hr Documented by: [id number] Discontinued Medications Famotidine (Pepcid 20mg Iv Push) 20 mg in 5 mls @ 2.5 mls/min IV NOW STA Stop: 07/24/20 19:29 Last Admin: 07/24/20 20:25 Dose: 2.5 mls/min Documented by: [id number] Acetaminophen (Ofirmev) 1,000 mg in 100 mls @ 400 mls/hr IV NOW STA Stop: 07/24/20 19:42 Last Infusion: 07/24/20 20:40 Dose: 0 mls/hr Documented by: [id number] Admin: 07/24/20 20:25 Dose: 400 mls/hr Documented by: [id number] Sodium Chloride (Nss 1000ml) 1,000 mls @ 999 mls/hr IV .Q1H1M ONE Stop: 07/24/20 20:30 Last Infusion: 07/24/20 21:25 Dose: 0 mls/hr Documented by: [id number] Admin: 07/24/20 20:24 Dose: 999 mls/hr Documented by: [id number] Piperacillin Sod/Tazobactam Sod (Zosyn) 4.5 gm in 120 mls @ 240 mls/hr IV NOW ONE Stop: 07/24/20 22:58 Last Infusion: 07/25/20 01:30 Dose: 0 mls/hr Documented by: [id number] Admin: 07/25/20 01:00 Dose: 240 mls/hr Documented by: [id number] Ioversol (Optiray 320 100ml) 89 ml IV ONCE ONE Stop: 07/24/20 21:40 Last Admin: 07/24/20 21:39 Dose: 1 ml Documented by: [id number] Morphine Sulfate (Morphine Sulfate 4 Mg/Ml 1 Ml Carp\Vial) 4 mg IV NOW STA Stop: 07/24/20 19:31 Last Admin: 07/24/20 20:24 Dose: 4 mg Documented by: [id number] Morphine Sulfate (Morphine Sulfate 4 Mg/Ml 1 Ml Carp\Vial) Confirm Administered Dose 4 mg .ROUTE .STK-MED ONE Stop: 07/24/20 22:44 Last Admin: 07/24/20 22:49 Dose: 4 mg Documented by: [id number] Ondansetron HCl (Ondansetron Inj 2 Mg/Ml 2 Ml Vial) 4 mg IV NOW STA Stop: 07/24/20 19:31 Last Admin: 07/24/20 20:24 Dose: 4 mg Documented by: [id number] Piperacillin Sod/Tazobactam Sod (Piperacillin/Tazobactam 4.5 Gm/120ml D5w) Confirm Administered Dose 4.5 gm IV .STK-MED ONE Stop: 07/25/20 01:07 Last Admin: 07/25/20 01:47 Dose: Not Given Documented by: [id number] Imaging Data Radiologist's Impression: Chest X-Ray 07/24/20 19:28 SINGLE VIEW CHEST CLINICAL HISTORY: Atypical chest pain. FINDINGS: An AP, portable, upright chest radiograph is compared to study dated 06/03/2020. The examination is degraded by portable technique and apical lordotic positioning. The heart is enlarged noting atherosclerotic calcification of the thoracic aorta. The pulmonary vasculature is noncongested. Chronic interstitial thickening is similar to previous. No airspace consolidation or large pleural effusion is identified. Apparent increase in density at the left lung base is related to overlying breast tissue. No pneumothorax is seen. The bony thorax is grossly intact. IMPRESSION: Mild cardiomegaly with no acute cardiopulmonary abnormality. ACT 112: Negative or not required by law. Electronically signed by: Noam Bower M.D. 07/24/2020 8:02 PM Abdomen/Pelvis CT 07/24/20 19:30 CT SCAN OF THE ABDOMEN AND PELVIS WITH IV CONTRAST CLINICAL HISTORY: Epigastric and right upper quadrant abdominal pain. COMPARISON STUDY: Abdominal CT dated 01/01/2015. TECHNIQUE: Following the IV administration of 89 cc of Optiray 320, CT scan of the abdomen and pelvis is performed from the lung bases to the proximal femora. Images are reviewed in the axial, sagittal, and coronal planes. IV contrast was administered without complication. A dose lowering technique was utilized adhering to the principles of ALARA. CT DOSE: 1278.62 mGy.cm FINDINGS: Lung bases: The heart is normal in size and without pericardial effusion. There are coronary artery calcifications. Small hiatal hernia is noted. The lung bases are clear noting bibasilar scarring/atelectasis. Liver: The contrast-enhanced liver is normal in size, contour, and attenuation. There is no intrahepatic biliary ductal dilatation. The hepatic veins and portal veins are patent. Gallbladder: The gallbladder is distended. There is mild gallbladder wall thickening and faint pericholecystic stranding. Spleen: Normal in size and attenuation. Pancreas: Unremarkable. Adrenal glands: Unremarkable. Kidneys: The contrast enhanced kidneys demonstrate cortical atrophy and are without hydronephrosis. There are small bilateral extrarenal pelvises. The kidneys enhance symmetrically. Abdominal vasculature: The abdominal aorta is normal in course and caliber no ting moderate to advanced atherosclerotic calcification. Bowel: There is moderate diverticulosis of the left colon without CT evidence of acute diverticulitis. No bowel obstruction is seen. The appendix is well- visualized and normal. Peritoneum: There is no intraperitoneal free air or abdominal ascites. There is a fat-containing umbilical hernia. Lymphadenopathy: None. Pelvic viscera: The bladder is normal as visualized. The uterus is surgically absent. No adnexal lesion is seen. Skeletal structures: The skeletal structures are osteopenic. There is moderate lumbosacral spondylosis. A large disc herniation is noted at L4-L5. No lytic or blastic lesions are seen. IMPRESSION: 1. The gallbladder is distended and abnormal in appearance. Correlate with clinical findings and laboratory studies for evidence of acute cholecystitis. Correlation with a right upper quadrant ultrasound is recommended. 2. There is moderate diverticulosis of left colon without CT evidence of acute diverticulitis. 3. Additional findings as above. ACT 112: Negative or not required by law. Electronically signed by: Noam Bower M.D. 07/24/2020 10:10 PM Gallbladder Ultrasound 07/24/20 22:18 ULTRASOUND RIGHT UPPER QUADRANT ABDOMEN CLINICAL HISTORY: Right upper quadrant abdominal pain. Elevated bilirubin. COMPARISON STUDY: Abdominal CT dated 07/24/2020. Abdominal ultrasound dated 07/18/2016 TECHNIQUE: Real-time, grayscale, and color flow sonography of the right upper quadrant of the abdomen was performed. Images are reviewed in the transverse and longitudinal planes. FINDINGS: Liver: The liver is normal in size and heterogeneous in echotexture. There is no intrahepatic biliary ductal dilatation. The main portal vein is patent. Gallbladder: The gallbladder is distended. No shadowing gallstones are identified. The gallbladder wall appears mildly thickened and edematous. No pericholecystic fluid is identified. A sonographic Jc's sign could not be assessed as the patient received analgesia. The common bile duct measures up to 0.9 cm in diameter. Pancreas: Visualized portions of the pancreatic head and body are normal in appearance. The splenic vein is patent. Right kidney: Survey images of the right kidney demonstrate cortical atrophy. Echotexture is normal. There is no hydronephrosis. Mild fullness of the right renal collecting system is similar to previous. Ascites: None. IMPRESSION: 1. The gallbladder is mildly distended, and the wall appears mildly thickened and edematous. No shadowing gallstones are identified. A sonographic Jc's sign could not be evaluated. These findings could be related to adjacent hepatocellular disease. Findings are equivocal for acute cholecystitis which is not excluded. If there is strong clinical concern for acute cholecystitis a nu clear hepatobiliary scan could be considered for further evaluation. 2. The common bile duct is mildly dilated measuring up to 9 mm in diameter, and measured up to 7 mm in 2017. There is no significant intrahepatic ductal dilatation. 3. Hepatic echotexture is heterogeneous. ACT 112: Negative or not required by law. Electronically signed by: Noam Bower M.D. 07/24/2020 11:49 PM Discharge Plan Visit Data Chief Complaint: Abdominal Pain Stated Complaint: STOMACH PAIN, NAUSEA ED Provider: Vlad Blanco Discharge Problem: Acute cholecystitis, Transaminitis, CKD (chronic kidney disease), Acute upper abdominal pain Patient Disposition: Admitted As Inpatient Discharge Instructions Interventions: ED Discharge Assessment Last Done: 07/25/20 04:02
--- NOTE | 2020-07-25 00:28 | History & Physical Report ---
Date of Service July 25, 2020 Assessment & Plan (1) Acute cholecystitis: Acute cholecystitis/common bile duct dilatation- Admission to medical floor NPO Ceftriaxone 2 g IV daily Zofran 4 mg IV every 6 hours as needed Famotidine 20 mg IV every 12 hours Dilaudid 0.25 mg IV every 3 hours as needed moderate pain Dilaudid 0.5 mg IV every 3 hours as needed severe pain NSS + KCl 20 mEq at 100 mils per hour Order MRCP General surgery consult Present on Admission?: Yes (2) Common bile duct dilatation: See above Present on Admission?: Yes (3) CKD (chronic kidney disease), stage III: CKD stage III/ hypokalemia- Creatinine 1.28 upon admission, with range 1.18-1.27 IV fluids as noted above and follow serial BMP and magnesium level Present on Admission?: Yes (4) CAD (coronary artery disease): CAD/hypertension- Hold aspirin, clopidogrel, indapamide and losartan presurgery. Continue metoprolol succinate with hold parameters Present on Admission?: Yes (5) Type 2 diabetes mellitus: Hold glipizide, Victoza and Metformin. Placed on Accu-Cheks before meals and at bedtime/every 6 hours with NovoLog coverage per scale Present on Admission?: Yes (6) Acid reflux: Hold lansoprazole Placed on famotidine 20 mg IV every 12 hours Present on Admission?: Yes (7) Asthma: Continue Breo Ellipta Present on Admission?: Yes (8) Dyslipidemia: Hold atorvastatin until post procedure Present on Admission?: Yes (9) Depression: Hold fluoxetine until post procedure Present on Admission?: Yes History of Present Illness Chief Complaint: The patient presents to the emergency department with the acute onset of right upper quadrant and epigastric pain, nausea and vomiting that began after eating dinner around 4:00 this afternoon. Primary Care Provider: Clint Boo MD The patient is a 70-year-old female with a past medical history including chronic kidney disease stage III, asthma, depression, hypertension, GERD, allergic rhinitis, anemia, CAD, dyslipidemia, GERD without esophagitis, hyperparathyroidism, KYLEE, diabetes mellitus type 2, vitamin D deficiency and left carpal tunnel syndrome. She presents with symptoms as noted above. Work-up in the emergency department included following abnormal laboratories: Potassium 3.0, creatinine 1.28, total bilirubin 1.9, direct bilirubin 1.1, AST 368, ALT 179. Following imaging studies were performed: Gallbladder ultrasound showed a distended gallbladder, bile duct up to [address] scan of abdomen the pelvis showed distended gallbladder. The patient was given Zosyn 4.5 g IV, famotidine 20 mg IV, Tylenol 1000 mg IV and morphine sulfate 4 mg IV by the ED. General surgery was consulted, and asked that the patient be admitted to the medical service for further assessment before surgery, including MRCP. Allergies Allergy/AdvReac Type Severity Reaction Status Date / Time No Known Drug Allergies Allergy Unknown . Verified 07/24/20 22:08 Bae Pepper Allergy Mild itchy rash Uncoded 07/24/20 22:09 Home Medications Medication Instructions Recorded Confirmed Type hydrocodone-homatropine 5 mg-1.5 1 tab PO DAILY PRN #30 tab 11/12/18 07/24/20 History mg tablet hydrochlorothiazide 25 mg tablet 25 mg PO DAILY PRN #30 tab 01/28/19 07/24/20 History ezetimibe 10 mg tablet 10 mg PO DAILY #90 tab 10/14/19 07/24/20 Rx fluoxetine 20 mg capsule 20 mg PO DAILY #90 cap 10/14/19 07/24/20 Rx indapamide 1.25 mg tablet 1.25 mg PO DAILY #90 tab 10/14/19 07/24/20 Rx losartan 100 mg tablet 100 mg PO DAILY #90 tab 10/14/19 07/24/20 Rx metoprolol succinate 100 mg 100 mg PO DAILY #90 tab 10/14/19 07/24/20 Rx tablet,extended release 24 hr albuterol sulfate 90 mcg/actuation 2 inh INHALATION Q4H PRN #8.5 g 11/06/19 07/24/20 Rx aerosol inhaler azelastine 137 mcg (0.1 %) nasal 1 spray INTNAS BID PRN 01/15/20 07/24/20 History spray aerosol fluticasone propionate 50 1 spray INTRANASAL BID PRN #1 gm 01/15/20 07/24/20 History mcg/actuation nasal spray,suspension mometasone 0.1 % topical cream 1 applic TOPICAL BID PRN #1 gm 01/15/20 07/24/20 History atorvastatin 80 mg tablet 80 mg PO DAILY #90 tab 01/17/20 07/24/20 Rx budesonide-formoterol HFA 160 2 inh INHALATION BID #3 inhaler 01/30/20 07/24/20 Rx mcg-4.5 mcg/actuation aerosol inhaler clopidogrel 75 mg tablet 75 mg PO DAILY #90 tab 01/30/20 07/24/20 Rx lansoprazole 30 mg capsule,delayed 30 mg PO DAILY #90 cap 01/30/20 07/24/20 Rx release metformin 500 mg tablet,extended 500 mg PO DAILY #90 tab 01/30/20 07/24/20 Rx release 24 hr nitroglycerin 0.4 mg sublingual 0.4 mg SL .COMPLEX #20 tab 01/30/20 07/24/20 Rx tablet glipizide 5 mg tablet, extended 5 mg PO DAILY #90 tab 04/07/20 07/24/20 Rx release 24 hr calcium carbonate-vitamin D2 1 tab PO QAM 06/03/20 07/24/20 History fluocinonide 0.05 % topical 1 applic TOPICAL BID PRN #60 ml 06/30/20 07/24/20 Rx solution Tresiba FlexTouch U-100 20 unit SQ QPM 07/24/20 07/24/20 History Victoza 3-Ant 1.8 mg SUBCUT QAM 07/24/20 07/24/20 History aspirin [Aspir-Low] 81 mg PO DAILY 07/24/20 07/24/20 History Past Med/Surg History Medical History Arthritis Asthma RELATED TO SEASONAL/ENVIRONMENTAL ALLERGIES (HAS NOT USED RESCUE INHALER FOR A LONG TIME) Benign colonic polyp Diabetic retinopathy RT EYE (GETS INJECTION) GERD (gastroesophageal reflux disease) History of kidney stones Hx of gastric ulcer BLEED Hyperlipidemia Hypertension Myocardial Infarction AT AGE 53 Sleep apnea NO DEVICE CURRENLTY USED T2DM (type 2 diabetes mellitus) Thrombophlebitis DURING AROUND AGE 29 Surgical History H/O total hysterectomy History of cardiac cath History of cataract surgery RT/LEFT History of colonoscopy (2013) History of dilation and curettage History of esophagogastroduodenoscopy (EGD) History of heart artery stent AT AGE 53>1 STENT PLACED AT [facility] [place] (FOLLOWS WITH DR. CARDOZA) History of lithotripsy History of tonsillectomy and adenoidectomy History of tooth extraction History of tubal ligation S/P subtotal parathyroidectomy Family History Unknown Arthritis Allergic rhinitis Father Prostate cancer Cardiac disorder Kidney stones Hypertension Mother Diabetes Hypertension Family history of diabetes mellitus Brother Diabetes Cancer Family history of diabetes mellitus Grandfather Cardiac disorder Other No family history of adverse response to anesthesia Social History Smoking Status: Never smoker Second Hand Exposure: Yes (IN THE PAST); Hx Alcohol Use: Yes Alcohol type: wine Hx Substance Use: No Preferred Language: Bolivian Communication Ability: Effective Forensic Scientist Required: No Beliefs That Will Affect Care: None marital status: Current Living Situation: Spouse current occupational status: retired Other Information That Helps Us Care for You: No Feels Safe at Home: Yes Safety Concerns: Feels Safe At This Time Assistive Devices: None Review of Systems Review of Systems: The patient denies chest pain, palpitations, shortness of breath, dyspnea on exertion, cough, lower extremity swelling, sore throat, diarrhea , constipation, blood in urine or stool, dysuria, urinary frequency or urgency, lightheadedness, dizziness, headache, memory loss, loss of consciousness, rash, abnormal bruising or bleeding, imbalance, focal or generalized weakness, numbness or tingling in arms or legs, generalized arthralgias or myalgias, back or neck pain, or night sweats. The review of systems is otherwise negative other than for that already noted above, and at least 10 systems have been reviewed. Physical Exam Physical Exam: The patient is awake, alert and oriented 3, well developed and well nourished, normocephalic and atraumatic, lying in bed and in no acute distress. HEENT--PERRL, EOMI, mucous membranes and oropharynx dry. Neck--supple. No JVD. No bruits. Thyroid normal, trachea midline, no adenopathy. Heart--normal S1 and S2. No murmurs, rubs or gallops. Lungs--clear bilaterally, no respiratory distress, no accessory muscle use. Abdomen--normal bowel sounds and soft. Nontender after ministration of IV pain medications. Nondistended. Extremities--no cyanosis or clubbing. No edema. Dermatologic--normal skin turgor, normal color, no abnormal lymph nodes, no rash. Neurologic--cranial nerves II through XII grossly intact. Rheumatologic--normal range of motion. Psychiatric--normal affect. Results & Data Results & Data ([facility]) Vital Signs (Past 12 Hours) Vital Signs Temp Pulse Pulse Resp BP BP Pulse Ox 07/24/20 20:03 77 22 145/77 H 98 07/24/20 19:10 97.9 F 107 H 16 168/84 H 99 Laboratory Results Laboratory Results WBC 8.58 K/uL (4.8-10.8) 07/24/20 20:10 RBC 4.93 M/uL (4.2-5.4) 07/24/20 20:10 Hgb 14.0 g/dL (12.0-16.0) 07/24/20 20:10 Hct 43.0 % (37-47) 07/24/20 20:10 MCV 87.2 fL (80-100) 07/24/20 20:10 MCH 28.4 pg (25-34) 07/24/20 20:10 MCHC 32.6 g/dL (32-36) 07/24/20 20:10 RDW Std Deviation 46.3 fL (36.4-46.3) 07/24/20 20:10 RDW Coeff of Diana 14.6 % (11.5-14.5) H 07/24/20 20:10 Plt Count 222 K/uL (130-400) 07/24/20 20:10 MPV 11.6 fL (7.4-10.4) H 07/24/20 20:10 Immature Gran % (Auto) 0.3 % 07/24/20 20:10 Neut % (Auto) 89.4 % 07/24/20 20:10 Lymph % (Auto) 7.8 % 07/24/20 20:10 [place] % (Auto) 1.9 % 07/24/20 20:10 Eos % (Auto) 0.5 % 07/24/20 20:10 Baso % (Auto) 0.1 % 07/24/20 20:10 Neut # (Auto) 7.67 K/uL (1.4-6.5) H 07/24/20 20:10 Lymph # (Auto) 0.67 K/uL (1.2-3.4) L 07/24/20 20:10 [place] # (Auto) 0.16 K/uL (0.11-0.59) 07/24/20 20:10 Eos # (Auto) 0.04 K/uL (0-0.5) 07/24/20 20:10 Baso # (Auto) 0.01 K/uL (0-0.2) 07/24/20 20:10 Immature Gran # (Auto) 0.03 K/uL (0.00-0.02) H 07/24/20 20:10 Sodium 141 mmol/L (136-145) 07/24/20 20:10 Potassium 3.0 mmol/L (3.5-5.1) L 07/24/20 20:10 Chloride 107 mmol/L (98-107) 07/24/20 20:10 Carbon Dioxide 28 mmol/L (21-32) 07/24/20 20:10 Anion Gap 7.0 (3-11) 07/24/20 20:10 BUN 25 mg/dl (7-18) H 07/24/20 20:10 Creatinine 1.28 mg/dl (0.6-1.2) H 07/24/20 20:10 Est Cr Clr Drug Dosing 48.3 ml/min 07/24/20 20:10 Est GFR ( Amer) 48.7 ml/min 07/24/20 20:10 Est GFR (Non-Af Amer) 42.0 ml/min 07/24/20 20:10 BUN/Creatinine Ratio 19.3 (10-20) 07/24/20 20:10 Glucose 156 mg/dl (70-99) H 07/24/20 20:10 Calcium 9.6 mg/dl (8.5-10.1) 07/24/20 20:10 Total Bilirubin 1.9 mg/dl (0.2-1) H D 07/24/20 20:10 Direct Bilirubin 1.1 mg/dl (0-0.2) H 07/24/20 20:10 AST 368 U/L (15-37) H 07/24/20 20:10 ALT 179 U/L (12-78) H 07/24/20 20:10 Alkaline Phosphatase 185 U/L (45-117) H 07/24/20 20:10 Troponin I < 0.015 ng/ml (0-0.045) 07/24/20 20:10 Total Protein 7.0 gm/dl (6.4-8.2) 07/24/20 20:10 Albumin 3.8 gm/dl (3.4-5.0) 07/24/20 20:10 Globulin 3.2 gm/dl (2.5-4.0) 07/24/20 20:10 Albumin/Globulin Ratio 1.2 (0.9-2) 07/24/20 20:10 Lipase 367 U/L (73-393) 07/24/20 20:10 Urine Color Dark Yellow 07/24/20 Unknown Urine Appearance Clear (Clear) 07/24/20 Unknown Urine pH 5.5 (4.5-7.5) 07/24/20 Unknown Ur Specific [place] 1.019 (1.000-1.030) 07/24/20 Unknown Urine Protein Negative (Negative) 07/24/20 Unknown Urine Glucose (UA) Negative (Negative) 07/24/20 Unknown Urine Ketones Negative (Negative) 07/24/20 Unknown Urine Blood Negative (Negative) 07/24/20 Unknown Urine Nitrite Negative (Negative) 07/24/20 Unknown Urine Bilirubin Negative (Negative) 07/24/20 Unknown Urine Urobilinogen Negative (Negative) 07/24/20 Unknown Ur Leukocyte Esterase Negative (Negative) 07/24/20 Unknown COVID-19 Eval Order Covid19 at [facility] 07/25/20 00:05 SARS-CoV-2 (PCR) NEGATIVE (Negative) 07/25/20 00:05 Impressions Chest X-Ray 07/24/20 19:28 SINGLE VIEW CHEST CLINICAL HISTORY: Atypical chest pain. FINDINGS: An AP, portable, upright chest radiograph is compared to study dated 06/03/2020. The examination is degraded by portable technique and apical lordotic positioning. The heart is enlarged noting atherosclerotic calcification of the thoracic aorta. The pulmonary vasculature is noncongested. Chronic interstitial thickening is similar to previous. No airspace consolidation or large pleural effusion is identified. Apparent increase in density at the left lung base is related to overlying breast tissue. No pneumothorax is seen. The bony thorax is grossly intact. IMPRESSION: Mild cardiomegaly with no acute cardiopulmonary abnormality. ACT 112: Negative or not required by law. Electronically signed by: Noam Bower M.D. 07/24/2020 8:02 PM Abdomen/Pelvis CT 07/24/20 19:30 CT SCAN OF THE ABDOMEN AND PELVIS WITH IV CONTRAST CLINICAL HISTORY: Epigastric and right upper quadrant abdominal pain. COMPARISON STUDY: Abdominal CT dated 01/01/2015. TECHNIQUE: Following the IV administration of 89 cc of Optiray 320, CT scan of the abdomen and pelvis is performed from the lung bases to the proximal femora. Images are reviewed in the axial, sagittal, and coronal planes. IV contrast was administered without complication. A dose lowering technique was utilized adhering to the principles of ALARA. CT DOSE: 1278.62 mGy.cm FINDINGS: Lung bases: The heart is normal in size and without pericardial effusion. There are coronary artery calcifications. Small hiatal hernia is noted. The lung bases are clear noting bibasilar scarring/atelectasis. Liver: The contrast-enhanced liver is normal in size, contour, and attenuation. There is no intrahepatic biliary ductal dilatation. The hepatic veins and portal veins are patent. Gallbladder: The gallbladder is distended. There is mild gallbladder wall thickening and faint pericholecystic stranding. Spleen: Normal in size and attenuation. Pancreas: Unremarkable. Adrenal glands: Unremarkable. Kidneys: The contrast enhanced kidneys demonstrate cortical atrophy and are without hydronephrosis. There are small bilateral extrarenal pelvises. The kidneys enhance symmetrically. Abdominal vasculature: The abdominal aorta is normal in course and caliber noting moderate to advanced atherosclerotic calcification. Bowel: There is moderate diverticulosis of the left colon without CT evidence of acute diverticulitis. No bowel obstruction is seen. The appendix is well- visualized and normal. Peritoneum: There is no intraperitoneal free air or abdominal ascites. There is a fat-containing umbilical hernia. Lymphadenopathy: None. Pelvic viscera: The bladder is normal as visualized. The uterus is surgically absent. No adnexal lesion is seen. Skeletal structures: The skeletal structures are osteopenic. There is moderate lumbosacral spondylosis. A large disc herniation is noted at L4-L5. No lytic or blastic lesions are seen. IMPRESSION: 1. The gallbladder is distended and abnormal in appearance. Correlate with clinical findings and laboratory studies for evidence of acute cholecystitis. Correlation with a right upper quadrant ultrasound is recommended. 2. There is moderate diverticulosis of left colon without CT evidence of acute diverticulitis. 3. Additional findings as above. ACT 112: Negative or not required by law. Electronically signed by: Noam Bower M.D. 07/24/2020 10:10 PM Gallbladder Ultrasound 07/24/20 22:18 ULTRASOUND RIGHT UPPER QUADRANT ABDOMEN CLINICAL HISTORY: Right upper quadrant abdominal pain. Elevated bilirubin. COMPARISON STUDY: Abdominal CT dated 07/24/2020. Abdominal ultrasound dated 07/18/2016 TECHNIQUE: Real-time, grayscale, and color flow sonography of the right upper quadrant of the abdomen was performed. Images are reviewed in the transverse and longitudinal planes. FINDINGS: Liver: The liver is normal in size and heterogeneous in echotexture. There is no intrahepatic biliary ductal dilatation. The main portal vein is patent. Gallbladder: The gallbladder is distended. No shadowing gallstones are identified. The gallbladder wall appears mildly thickened and edematous. No pericholecystic fluid is identified. A sonographic Jc's sign could not be assessed as the patient received analgesia. The common bile duct measures up to 0.9 cm in diameter. Pancreas: Visualized portions of the pancreatic head and body are normal in appearance. The splenic vein is patent. Right kidney: Survey images of the right kidney demonstrate cortical atrophy. Echotexture is normal. There is no hydronephrosis. Mild fullness of the right renal collecting system is similar to previous. Ascites: None. IMPRESSION: 1. The gallbladder is mildly distended, and the wall appears mildly thickened and edematous. No shadowing gallstones are identified. A sonographic Jc's sign could not be evaluated. These findings could be related to adjacent hepatocellular disease. Findings are equivocal for acute cholecystitis which is not excluded. If there is strong clinical concern for acute cholecystitis a nuclear hepatobiliary scan could be considered for further evaluation. 2. The common bile duct is mildly dilated measuring up to 9 mm in diameter, and measured up to 7 mm in 2017. There is no significant intrahepatic ductal dilatation. 3. Hepatic echotexture is heterogeneous. ACT 112: Negative or not required by law. Electronically signed by: Noam Bower M.D. 07/24/2020 11:49 PM Code Status & VTE Plan Code Status Full code VTE Prophylaxis Plan VTE Prophylaxis will be ordered: Yes PG Care Time/CCT Total # of Minutes Spent Total Time Spent with Patient: Total time spent is greater than 50% in coordination of care (as documented) at patient's floor/unit and/or counseling patient: Coding Level of Care Code 04379 Initial Inpt Care Lvl 3 Diagnoses Acute cholecystitis K81.0 Common bile duct dilatation K83.8 CKD (chronic kidney disease), stage III N18.3 CAD (coronary artery disease) I25.10 Type 2 diabetes mellitus E11.9 Acid reflux K21.9 Asthma J45.909 Dyslipidemia E78.5 Depression F32.9
[2020-07-25] MEDS ORDERED: PIPERACILLIN/TAZOBACTAM 4.5 GM/120ML D5W IV ONE (01:06)
[2020-07-25] MEDS ORDERED: DEXTROSE 50% 50 ML SYRINGE IV PRN (02:24)
[2020-07-25] MEDS ORDERED: GLUCAGON FOR INJ 1 MG VIAL SQ PRN (02:24)
[2020-07-25] MEDS ORDERED: HYDROmorphone INJ 0.5 MG/0.5 ML SYR IV PRN ×2 (02:24)
[2020-07-25] MEDS ORDERED: ACETAMINOPHEN 325 MG TAB PO PRN ×2 (02:24→17:27)
[2020-07-25] MEDS ORDERED: GLUCOSE 40% GEL 15 GM TUBE PO PRN (02:24)
[2020-07-25] MEDS ORDERED: ONDANSETRON INJ 2 MG/ML 2 ML VIAL IV PRN (02:24)
[2020-07-25] MEDS ORDERED: NITROGLYCERIN SL 0.4 MG/TAB TAB SL PRN (02:24)
[2020-07-25] MEDS ORDERED: GLUCOSE 10 TABS/TUBE PO PRN (02:24)
[2020-07-25] MEDS ORDERED: CARBOHYDRATES FOR HYPOGLYCEMIA PO PRN (02:24)
[2020-07-25] MEDS: NSS + 20MEQ KCL 20 MEQ/1,000 ML BAG IV SCH ×3 (03:16→20:22)
[2020-07-25] MEDS ORDERED: Nursing to Pharmacy Communication SCH ×2 (03:30→20:30)
--- NOTE | 2020-07-25 05:31 | Surgery Progress Note ---
Date of Service July 25, 2020 Assessment & Plan (1) Cholecystitis: Patient has been admitted to the hospital by the hospitalist service. We are proceeding as follows: Continue analgesics Continue antiemetics Continue antibiotics. She is currently receiving Rocephin Hydration with IV fluids N.p.o. for the present time -Due to elevated LFTs and MRCP has been ordered. Based on the results of this GI consultation and potential ERCP may be required but this is yet to be determined Time of cholecystectomy will be determined by pending studies Patient does have a cardiac history having suffered a myocardial infarction 15 years ago for which she takes aspirin and Plavix. These medications have been placed on hold in anticipation of potential surgery or other procedures. SCDs are in place for DVT prevention. Chemical means are currently being held due to potential need for surgery Dr. Allen-patient admitted with what appears to be biliary colic and mild acute cholecystitis-she is on Plavix and aspirin Plan would be to proceed with laparoscopic cholecystectomy in 1 to 2 days depending on her medical evaluation and Holding her Plavix. She could have clear liquids and also we will give her subcu heparin Safest plan may be for surgery on Monday Admission and Anticipated Discharge Date Admission Date: July 25, 2020 Subjective Patient is resting comfortably in bed. She notes that her abdominal pain is currently well controlled with her current regimen of pain medications. Since admission she has not had any nausea or vomiting. She says she had a restful night. She denies any fevers, shakes, chills, or shortness of breath. Physical Exam Gastrointestinal (Abdomen): Abdomen is rotund but soft. There is no rebound tenderness or guarding. Patient does have pain with palpation of the upper abdomen as noted on admission exam. Results & Data ([facility]) Vital Signs (Past 12 Hours) Vital Signs Temp Pulse Pulse Resp BP BP Pulse Ox 07/25/20 02:25 37.2 C 69 20 120/70 99 07/25/20 02:00 80 18 113/52 L 96 07/25/20 01:30 81 16 113/58 L 95 07/25/20 01:15 88 19 114/57 L 88 L 07/25/20 00:45 95 07/25/20 00:42 84 15 114/57 L 88 L 07/24/20 23:00 94 H 24 155/87 H 95 05/28/21 20:03 77 22 145/77 H 98 07/24/20 19:10 36.6 C 107 H 16 168/84 H 99 PG Care Time/CCT Total # of Minutes Spent Total Time Spent with Patient: Total time spent is greater than 50% in coordination of care (as documented) at patient's floor/unit and/or counseling patient: Coding Level of Care Code 05760 Subseq Hosp Care Lvl 1 Diagnoses Cholecystitis K81.9
[2020-07-25] MEDS: INSULIN ASPART 100 UNITS/ML 3 ML PEN SC SCH ×4 (06:15→20:25)
[2020-07-25 06:29] LABS: Estimated Average Glucose 169 mg/dl; Hemoglobin A1C 7.5 % (4.5-5.6)
[2020-07-25] MEDS ORDERED: INSULIN ASPART 100 UNITS/ML 3 ML PEN SC SCH (07:30)
[2020-07-25] MEDS: HEPARIN SOD 5,000 UNIT/0.5 ML VIAL SQ SCH ×2 (09:27→20:35)
[2020-07-25] MEDS: cefTRIAXone SODIUM 2,000 MG in DEXTROSE 5% 50 ML IV SCH (09:54)
[2020-07-25] MEDS: METOPROLOL SUCC 50MG EXT REL TAB PO SCH (09:55)
[2020-07-25] MEDS: FLUTICASONE/VILANTEROL 200/25MCG 14 PUFFS/INHALER INH SCH (09:56)
--- NOTE | 2020-07-25 11:50 | Magnetic Resonance Report ---
MRCP CLINICAL HISTORY: cholecystitis, assess for choledocholithiasis TECHNIQUE: Utilizing a 1.5 Merly magnet and dedicated coil, multiplanar, multiecho imaging of the upp er abdomen was performed utilizing heavily T2 weighted pulsing sequences without IV contrast. COMPARISON STUDY: CT of the abdomen and pelvis and right upper quadrant ultrasound July 24, 2020. FINDINGS: There is no intra or extrahepatic biliary ductal dilatation. The common bile duct measures 6 mm in caliber. No common bile duct calculi are identified. The course and caliber of the main pancr eatic duct is normal. There is no peripancreatic infiltration or fluid. No hepatic lesions are identi fied on this unenhanced examination. Note is made of mild gallbladder wall thickening with trace juan cholecystic fluid. No gallstones are identified within the gallbladder by MRI. Spleen is at the upper limits of normal for size. A subcentimeter T2 hyperintense lesion within the spleen is likely benign . A 1 cm T2 hyperintense right adrenal nodule is indeterminate. There is no hydronephrosis. T2 hyperi ntense lesions within the kidneys are suboptimally assessed by MRI but probably reflect cysts. There is no abdominal lymphadenopathy or ascites. IMPRESSION: 1. No biliary ductal dilatation. No common bile duct calculi identified. 2. Mild gallbladder wall thickening and trace pericholecystic fluid. Acute cholecystitis cannot be ex cluded. 3. 1 cm T2 hyperintense right adrenal nodule which is indeterminate. ACT 112: Negative or not required by law. Electronically signed by: Jose Abebe M.D. 07/25/2020 11:49 AM
--- NOTE | 2020-07-25 15:05 | Electrocardiogram Report ---
Test Reason : Blood Pressure : / mmHG Vent. Rate : 081 BPM Atrial Rate : 081 BPM P-R Int : 164 ms QRS Dur : 070 ms QT Int : 394 ms P-R-T Axes : 048 013 059 degrees QTc Int : 457 ms Normal sinus rhythm Low voltage QRS Nonspecific ST and T wave abnormality Abnormal ECG When compared with ECG of 03-JUN-2020 11:09, The ST depression V4-V6 is slightly worse Confirmed by Erik Allison ([id number]) on 07/25/2020 3:04:41 PM Referred By: REFERRED SELF Confirmed By:Erik Allison
[2020-07-25] MEDS: IBUPROFEN 600 MG TAB PO PRN (18:10)
[2020-07-25] MEDS: INSULIN GLARGINE SOLOSTAR 100 UNITS/ML 3 ML PEN SQ SCH (20:26)
[2020-07-26] MEDS: IBUPROFEN 600 MG TAB PO PRN ×2 (04:22→19:50)
[2020-07-26] MEDS ORDERED: diphenhydrAMINE Capsule 25 MG CAP PO PRN (05:30)
[2020-07-26] MEDS ORDERED: CETIRIZINE HCL 10 MG TABLET PO ONE (05:30)
--- NOTE | 2020-07-26 05:30 | Surgery Progress Note ---
Date of Service July 26, 2020 Assessment & Plan (1) Cholecystitis: Patient has been admitted to the hospital by the hospitalist service. Continue care as follows: Continue analgesics Continue antiemetics Continue antibiotics in the form of Rocephin Continue hydration with IV fluids Due to elevated LFTs and MRCP has been completed. This did not reveal any evidence of choledocholithiasis -Cholecystectomy is planned for the future, potentially as early as tomorrow, which is 07/27/2020. Due to the patient's reported pruritus we will order as needed Benadryl. Patient takes aspirin and Plavix for history of myocardial infarction requiring cardiac stent placement approximately 15 years ago. These medications have been on hold since admission. We will plan on resuming these postoperatively when deemed safe. Subcu heparin is in place for DVT prevention Additional recommendations were made based on operative findings as well as her postoperative recovery. Dr. Allen-patient had low-grade fever yesterday but has been afebrile since. She now has some itching but no evidence of significant rash possibly very mild. We will check her a.m. labs to assess her liver functions-even though her MRCP was negative We still may consider GI evaluation as she could have common bile duct debris. Plan is for laparoscopic cholecystectomy tomorrow keeping patient off Plavix today and tomorrow. Admission and Anticipated Discharge Date Admission Date: July 25, 2020 Subjective Patient notes that she is tolerating clear liquids without worsening abdominal pain. She denies any nausea or vomiting. She denies any fevers, shakes, chills. She does note that her abdominal pain has improved since admission. She denies any cough, shortness of breath, fever, shakes, or chills. She does report some generalized itching but has not noted any rash. Physical Exam Gastrointestinal (Abdomen): Abdomen is rotund with positive bowel sounds. There is no rebound tenderness or guarding. Patient does have some pain with palpation in the upper abdomen most pronounced in the right upper quadrant but this appears to have decreased in severity since time of admission. Skin: no rashes, warm and dry Results & Data ([facility]) Vital Signs (Past 12 Hours) Vital Signs Temp Pulse Resp BP Pulse Ox 07/25/20 22:42 37.1 C 79 16 114/61 93 PG Care Time/CCT Total # of Minutes Spent Total Time Spent with Patient: Total time spent is greater than 50% in coordination of care (as documented) at patient's floor/unit and/or counseling patient: Coding Level of Care Code 73072 Subseq Hosp Care Lvl 1 Diagnoses Cholecystitis K81.9
[2020-07-26 06:23] LABS: Basophils # (auto) 0.01 K/uL (0-0.2); Basophils % (auto) 0.1 %; Eosinophils # (auto) 0.27 K/uL (0-0.5); Eosinophils % (auto) 3.3 %; Hemoglobin 12.2 g/dL (12.0-16.0); Immature Granulocytes # (auto) 0.02 K/uL (0.00-0.02); Immature Granulocytes % (auto) 0.2 %; Lymphocytes # (auto) 0.63 K/uL (1.2-3.4); Lymphocytes % (auto) 7.7 %; Mean Corpuscular Hemoglobin 28.7 pg (25-34); Mean Corpuscular Volume 87.1 fL (80-100); Mean Platelet Volume 11.8 fL (7.4-10.4); Monocytes % (auto) 8.6 %; Neutrophils % (auto) 80.1 %; Platelet Count 187 K/uL (130-400); RDW Coefficient of Variation 15.2 % (11.5-14.5); RDW Standard Deviation 48.4 fL (36.4-46.3); Red Blood Count 4.25 M/uL (4.2-5.4); White Blood Count 8.13 K/uL (4.8-10.8)
[2020-07-26 07:02] LABS: Albumin Level 3.2 gm/dl (3.4-5.0); BUN Creatinine Ratio 15.9 (10-20); Bilirubin Direct 4.7 mg/dl (0-0.2); Calcium 8.5 mg/dl (8.5-10.1); Creatinine Clr Calc Pharmacy 46.9 ml/min; Est GFR (African American) 46.9 ml/min; Est GFR (Non-African American) 40.5 ml/min
[2020-07-26 07:03] LABS: Albumin Globulin Ratio 1.2 (0.9-2); Bilirubin,Total 5.9 mg/dl (0.2-1); Globulin 2.7 gm/dl (2.5-4.0); Phosphorus 1.6 mg/dl (2.5-4.9); Total Protein 5.9 gm/dl (6.4-8.2)
[2020-07-26] MEDS: NSS + 20MEQ KCL 20 MEQ/1,000 ML BAG IV SCH (07:42)
[2020-07-26] MEDS: FLUTICASONE/VILANTEROL 200/25MCG 14 PUFFS/INHALER INH SCH (09:14)
[2020-07-26] MEDS: INSULIN ASPART 100 UNITS/ML 3 ML PEN SC SCH ×4 (09:14→21:12)
[2020-07-26] MEDS: HEPARIN SOD 5,000 UNIT/0.5 ML VIAL SQ SCH (09:17)
[2020-07-26] MEDS: METOPROLOL SUCC 50MG EXT REL TAB PO SCH (09:21)
[2020-07-26] MEDS: cefTRIAXone SODIUM 2,000 MG in DEXTROSE 5% 50 ML IV SCH (09:27)
[2020-07-26] MEDS ORDERED: POTASSIUM PHOSPHATE 21 MMOL in SODIUM CHLORIDE 0.9% 500 ML IV ONE (10:00)
--- NOTE | 2020-07-26 10:34 | Hospitalist Progress Note ---
Date of Service July 26, 2020 Assessment & Plan (1) Acute cholecystitis: Acute cholecystitis/common bile duct dilatation- Admission to medical floor On Clear liquid diet. Patient appears stable. Afebrile for over 24 h. MRCP negative. Holding plavix and will have surgery on Monday. Ceftriaxone 2 g IV daily Zofran 4 mg IV every 6 hours as needed Famotidine 20 mg IV every 12 hours Dilaudid 0.25 mg IV every 3 hours as needed moderate pain Dilaudid 0.5 mg IV every 3 hours as needed severe pain Cut back to NSS + KCl 20 mEq at 50 mils per hour Appreciate input from Gen surgery. Cholcystectomy and ERCP scheduled for Monday ABEL 1.5 % Risk of myocardial infarction or cardiac arrest, intraoperatively or up to 30 days post-op R-RCRI Class III Risk 10.1 % 30-day risk of , [place], or cardiac arrest Patient is intermediate risk for an intermediate risk procedure. This could be life threatening if not treated and will not recommend any Cardiovascular testing in this case. (2) Common bile duct dilatation: See above (3) CKD (chronic kidney disease), stage III: CKD stage III/ hypokalemia- Creatinine 1.28 upon admission, with range 1.18-1.27 IV fluids as noted above and follow serial BMP and magnesium level (4) CAD (coronary artery disease): CAD/hypertension- Hold aspirin, clopidogrel, indapamide and losartan presurgery. Continue metoprolol succinate with hold parameters (5) Type 2 diabetes mellitus: Hold glipizide, Victoza and Metformin. Placed on Accu-Cheks before meals and at bedtime/every 6 hours with NovoLog coverage per scale (6) Acid reflux: Hold lansoprazole Placed on famotidine 20 mg IV every 12 hours (7) Asthma: Continue Breo Ellipta (8) Dyslipidemia: Hold atorvastatin until post procedure (9) Depression: Hold fluoxetine until post procedure Admission and Anticipated Discharge Date Admission Date: July 25, 2020 Subjective Patient reports feeling well. She has no new symptoms. Review of Systems Review of Systems: All systems reviewed & are unremarkable except as noted in HPI & below Physical Exam Physical Exam: The patient is awake, alert and oriented 3, well developed and well nourished. HEENT--PERRL, EOMI, Neck--supple. No JVD. No bruits. Thyroid normal, trachea midline, no adenopathy. Heart--normal S1 and S2. No murmurs, rubs or gallops. Lungs--clear bilaterally, no respiratory distress, no accessory muscle use. Extremities--no cyanosis or clubbing. No edema. Dermatologic--normal skin turgor, normal color, no abnormal lymph nodes, no rash. Rheumatologic--normal range of motion. Psychiatric--normal affect. Results & Data Results & Data ([facility]) Vital Signs (Past 12 Hours) Vital Signs Temp Pulse Pulse Resp BP BP Pulse Ox 07/26/20 09:20 85 138/69 07/26/20 07:41 37.2 C 82 18 128/62 92 07/25/20 22:42 37.1 C 79 16 114/61 93 PG Care Time/CCT Total # of Minutes Spent Total Time Spent with Patient: Total time spent is greater than 50% in coordination of care (as documented) at patient's floor/unit and/or counseling patient: Coding Level of Care Code 42197 Subseq Hosp Care Lvl 3 Diagnoses Acute cholecystitis K81.0 Common bile duct dilatation K83.8 CKD (chronic kidney disease), stage III N18.3 CAD (coronary artery disease) I25.10 Type 2 diabetes mellitus E11.9 Acid reflux K21.9 Asthma J45.909 Dyslipidemia E78.5 Depression F32.9 Time Spent (min) 35
[2020-07-26] MEDS: POTASSIUM CHLORIDE / WTR 10 MEQ/100 ML PLCT IV SCH ×2 (14:43→15:42)
[2020-07-26 18:45] LABS: BUN Creatinine Ratio 12.5 (10-20); Calcium 8.1 mg/dl (8.5-10.1); Creatinine Clr Calc Pharmacy 50.3 ml/min; Est GFR (African American) 51.1 ml/min; Est GFR (Non-African American) 44.1 ml/min; Potassium 3.4 mmol/L (3.5-5.1)
[2020-07-26] MEDS ORDERED: POTASSIUM PHOS 3 MMOL/1 ML INFUSION IV STA (19:26)
[2020-07-26] MEDS ORDERED: POTASSIUM PHOSPHATE 40 MMOL in SODIUM CHLORIDE 0.9% 1000ML 1,000 ML IV STA (19:43)
[2020-07-26] MEDS: INSULIN GLARGINE SOLOSTAR 100 UNITS/ML 3 ML PEN SQ SCH (21:13)
[2020-07-27] MEDS: NSS + 20MEQ KCL 20 MEQ/1,000 ML BAG IV SCH ×2 (01:51→23:25)
--- NOTE | 2020-07-27 05:18 | Surgery Progress Note ---
Date of Service July 27, 2020 Assessment & Plan (1) Cholecystitis: Patient has been admitted to the hospital by the hospitalist service. Continue care as follows: Continue analgesics Continue antiemetics Continue antibiotics in the form of Rocephin Continue hydration with IV fluids Although MRCP did not reveal any evidence of choledocholithiasis patient was noted to have increased LFTs. As her LFTs have increased is felt the patient may require an ERCP prior to undergoing cholecystectomy. This is tentatively planned for tomorrow. Time of cholecystectomy will depend on timing of ERCP. Aspirin Plavix remain on hold in anticipation for surgical intervention. Subcu heparin has been placed on hold in anticipation for surgery. SCDs were utilized for DVT prevention Additional recommendations were made based on operative findings as well as her postoperative recovery. Admission and Anticipated Discharge Date Admission Date: July 25, 2020 Subjective Patient is resting comfortably in bed. She denies fevers, shakes, chills. She denies any nausea vomiting. She does note some minor abdominal pain most pronounced in the right upper quadrant but this is not as severe as what was noted at time of admission. Physical Exam Gastrointestinal (Abdomen): Abdomen is rotund but soft. There is no rebound tenderness or guarding. Bowel sounds are present. Pain noted with palpation greatest in the right upper quadrant. Results & Data ([facility]) Vital Signs (Past 12 Hours) Vital Signs Temp Pulse Resp BP Pulse Ox 07/26/20 23:44 37.0 C 66 18 134/65 96 PG Care Time/CCT Total # of Minutes Spent Total Time Spent with Patient: Total time spent is greater than 50% in coordination of care (as documented) at patient's floor/unit and/or counseling patient: Coding Level of Care Code 98565 Subseq Hosp Care Lvl 1 Diagnoses Cholecystitis K81.9
[2020-07-27] MEDS: METOPROLOL SUCC 50MG EXT REL TAB PO SCH (08:18)
[2020-07-27] MEDS: FLUTICASONE/VILANTEROL 200/25MCG 14 PUFFS/INHALER INH SCH (08:18)
[2020-07-27] MEDS: INSULIN ASPART 100 UNITS/ML 3 ML PEN SC SCH ×4 (08:19→21:08)
--- NOTE | 2020-07-27 08:19 | Gastrointestinal Consultation ---
Date of Consultation July 27, 2020 Assessment & Plan (1) Acute cholecystitis: (2) Elevated LFTs: 70 yo female admitted 07/24 with acute RUQ pain after eating. Imaging consistent with acute cholecystitis. LFTs elevated and concern for stone in the bile duct. MRCP on 07/25 was negative. LFTs bumped yesterday raising concern for possible biliary obstruction. - Please repeat LFTs today. - Consider repeat imaging (US vs MRCP) - EUS +/- ERCP in the OR tomorrow ( aware) pending results. - Hold Plavix History of Present Illness Reason for Consultation: elevated LFTs Attending Physician: Lenin Gibbs History of Present Illness 70 yo female admitted 07/24 with acute onset of RUQ pain, nausea and vomiting after eating. Diagnosed with cholecystitis. She has a history of chronic kidney disease stage III, asthma, depression, hypertension, GERD, allergic rhinitis, anemia, CAD, dyslipidemia, GERD without esophagitis, hyperparathyroidism, KYLEE, diabetes mellitus type 2, vitamin D deficiency. LFTs elevated on admission. CBD was 9mm on US. Subsequent MRCP was negative. Plans were made for cholecystectomy (patient on Plavix)but noted to have bump in LFTs yesterday raising concern for stone in the bile duct. No LFTs this AM. Allergies Allergy/AdvReac Type Severity Reaction Status Date / Time No Known Drug Allergies Allergy Unknown . Verified 07/24/20 22:08 Bae Pepper Allergy Mild itchy rash Uncoded 07/24/20 22:09 Home Medications Medication Instructions Recorded Confirmed Type hydrocodone-homatropine 5 mg-1.5 1 tab PO DAILY PRN #30 tab 11/12/18 07/24/20 History mg tablet hydrochlorothiazide 25 mg tablet 25 mg PO DAILY PRN #30 tab 01/28/19 07/24/20 History ezetimibe 10 mg tablet 10 mg PO DAILY #90 tab 10/14/19 07/24/20 Rx fluoxetine 20 mg capsule 20 mg PO DAILY #90 cap 10/14/19 07/24/20 Rx indapamide 1.25 mg tablet 1.25 mg PO DAILY #90 tab 10/14/19 07/24/20 Rx losartan 100 mg tablet 100 mg PO DAILY #90 tab 10/14/19 07/24/20 Rx metoprolol succinate 100 mg 100 mg PO DAILY #90 tab 10/14/19 07/24/20 Rx tablet,extended release 24 hr albuterol sulfate 90 mcg/actuation 2 inh INHALATION Q4H PRN #8.5 g 11/06/19 07/24/20 Rx aerosol inhaler azelastine 137 mcg (0.1 %) nasal 1 spray INTNAS BID PRN 01/15/20 07/24/20 History spray aerosol fluticasone propionate 50 1 spray INTRANASAL BID PRN #1 gm 01/15/20 07/24/20 Hi story mcg/actuation nasal spray,suspension mometasone 0.1 % topical cream 1 applic TOPICAL BID PRN #1 gm 01/15/20 07/24/20 History atorvastatin 80 mg tablet 80 mg PO DAILY #90 tab 01/17/20 07/24/20 Rx budesonide-formoterol HFA 160 2 inh INHALATION BID #3 inhaler 01/30/20 07/24/20 Rx mcg-4.5 mcg/actuation aerosol inhaler clopidogrel 75 mg tablet 75 mg PO DAILY #90 tab 01/30/20 07/24/20 Rx lansoprazole 30 mg capsule,delayed 30 mg PO DAILY #90 cap 01/30/20 07/24/20 Rx release metformin 500 mg tablet,extended 500 mg PO DAILY #90 tab 01/30/20 07/24/20 Rx release 24 hr nitroglycerin 0.4 mg sublingual 0.4 mg SL .COMPLEX #20 tab 01/30/20 07/24/20 Rx tablet glipizide 5 mg tablet, extended 5 mg PO DAILY #90 tab 04/07/20 07/24/20 Rx release 24 hr calcium carbonate-vitamin D2 1 tab PO QAM 06/03/20 07/24/20 History fluocinonide 0.05 % topical 1 applic TOPICAL BID PRN #60 ml 06/30/20 07/24/20 Rx solution Tresiba FlexTouch U-100 20 unit SQ QPM 07/24/20 07/24/20 History Victoza 3-Ant 1.8 mg SUBCUT QAM 07/24/20 07/24/20 History aspirin [Aspir-Low] 81 mg PO DAILY 07/24/20 07/24/20 History Patient History Medical History Arthritis Asthma RELATED TO SEASONAL/ENVIRONMENTAL ALLERGIES (HAS NOT USED RESCUE INHALER FOR A LONG TIME) Benign colonic polyp Diabetic retinopathy RT EYE (GETS INJECTION) GERD (gastroesophageal reflux disease) History of kidney stones Hx of gastric ulcer BLEED Hyperlipidemia Hypertension Myocardial Infarction AT AGE 53 Sleep apnea NO DEVICE CURRENLTY USED T2DM (type 2 diabetes mellitus) Thrombophlebitis DURING AROUND AGE 29 Surgical History H/O total hysterectomy History of cardiac cath History of cataract surgery RT/LEFT History of colonoscopy (2013) History of dilation and curettage History of esophagogastroduodenoscopy (EGD) History of heart artery stent AT AGE 53>1 STENT PLACED AT [facility] [place] (FOLLOWS WITH DR. CARDOZA) History of lithotripsy History of tonsillectomy and adenoidectomy History of tooth extraction History of tubal ligation S/P subtotal parathyroidectomy Family History Unknown Arthritis Allergic rhinitis Father Prostate cancer Cardiac disorder Kidney stones Hypertension Mother Diabetes Hypertension Family history of diabetes mellitus Brother Diabetes Cancer Family history of diabetes mellitus Grandfather Cardiac disorder Other No family history of adverse response to anesthesia Social History Smoking Status: Never smoker Second Hand Exposure: Yes (IN THE PAST); Hx Alcohol Use: Yes Alcohol type: wine Hx Substance Use: No Preferred Language: Sinhala Communication Ability: Effective Alcoholic Counselor Required: No Beliefs That Will Affect Care: None marital status: Current Living Situation: Spouse current occupational status: retired Other Information That Helps Us Care for You: No Feels Safe at Home: Yes Safety Concerns: Feels Safe At This Time Assistive Devices: None Review of Systems Review of Systems: All systems reviewed & are unremarkable except as noted in HPI & below Physical Exam Constitutional: WD/WN, vitals as above Respiratory: normal respiratory effort, lungs clear to auscultation Cardiovascular: RRR, no murmur, no edema Gastrointestinal (Abdomen): normal bowel sounds, soft, nontender, no hepatosplenomegaly Results & Data ([facility]) Vital Signs (Past 12 Hours) Vital Signs Temp Pulse Resp BP Pulse Ox 07/27/20 07:13 37 C 67 16 133/72 96 07/26/20 23:44 37.0 C 66 18 134/65 96
[2020-07-27] MEDS: cefTRIAXone SODIUM 2,000 MG in DEXTROSE 5% 50 ML IV SCH (08:23)
[2020-07-27 08:59] LABS: Basophils # (auto) 0.02 K/uL (0-0.2); Basophils % (auto) 0.4 %; Eosinophils # (auto) 0.24 K/uL (0-0.5); Eosinophils % (auto) 4.2 %; Hematocrit (blood only) 37.1 % (37-47); Hemoglobin 11.9 g/dL (12.0-16.0); Immature Granulocytes # (auto) 0.03 K/uL (0.00-0.02); Immature Granulocytes % (auto) 0.5 %; Lymphocytes # (auto) 0.87 K/uL (1.2-3.4); Lymphocytes % (auto) 15.4 %; Mean Corpuscular Hemoglobin 28.5 pg (25-34); Mean Corpuscular Hgb Conc 32.1 g/dL (32-36); Mean Corpuscular Volume 88.8 fL (80-100); Mean Platelet Volume 12.1 fL (7.4-10.4); Monocytes # (auto) 0.56 K/uL (0.11-0.59); Monocytes % (auto) 9.9 %; Neutrophils # (auto) 3.93 K/uL (1.4-6.5); Neutrophils % (auto) 69.6 %; Platelet Count 204 K/uL (130-400); RDW Coefficient of Variation 15.4 % (11.5-14.5); RDW Standard Deviation 49.6 fL (36.4-46.3); Red Blood Count 4.18 M/uL (4.2-5.4); White Blood Count 5.65 K/uL (4.8-10.8)
[2020-07-27] MEDS ORDERED: POTASSIUM CHLORIDE CRTAB 20 MEQ TABCR PO SCH (09:00)
[2020-07-27 09:28] LABS: Albumin Level 2.9 gm/dl (3.4-5.0); BUN Creatinine Ratio 11.1 (10-20); Calcium 8.4 mg/dl (8.5-10.1); Creatinine Clr Calc Pharmacy 59.5 ml/min; Est GFR (African American) 62.6 ml/min; Potassium 3.6 mmol/L (3.5-5.1)
[2020-07-27 09:32] LABS: Albumin Globulin Ratio 0.9 (0.9-2); Bilirubin,Total 3.5 mg/dl (0.2-1); Globulin 3.2 gm/dl (2.5-4.0); Total Protein 6.1 gm/dl (6.4-8.2)
[2020-07-27 09:38] LABS: Albumin Level 2.9 gm/dl (3.4-5.0); BUN Creatinine Ratio 11.5 (10-20); Bilirubin Direct 2.8 mg/dl (0-0.2); Bilirubin,Total 3.7 mg/dl (0.2-1); Calcium 8.5 mg/dl (8.5-10.1); Creatinine Clr Calc Pharmacy 57.8 ml/min; Est GFR (African American) 60.5 ml/min; Est GFR (Non-African American) 52.2 ml/min; Phosphorus 2.4 mg/dl (2.5-4.9); Potassium 3.6 mmol/L (3.5-5.1); Total Protein 6.1 gm/dl (6.4-8.2)
[2020-07-27] MEDS: POT PHOSPHATE MONOBASIC W/ SOD TAB PO SCH ×2 (14:28→17:46)
[2020-07-27] MEDS: POTASSIUM CHLORIDE CRTAB 20 MEQ TABCR PO SCH ×2 (14:28→20:20)
[2020-07-27] MEDS: INSULIN GLARGINE SOLOSTAR 100 UNITS/ML 3 ML PEN SQ SCH (21:24)
--- NOTE | 2020-07-28 05:56 | History & Physical Bridge Note ---
Date of Service July 28, 2020 History & Physical Bridge Note I have examined the patient, reviewed the History & Physical and in the interval since the performance of the History & Physical I have noted the following changes of clinical significance: no changes noted Check LFTs, final GI evaluation pending-EUS possible ERCP
--- NOTE | 2020-07-28 06:31 | Hospitalist Progress Note ---
Date of Service July 27, 2020 Assessment & Plan (1) Acute cholecystitis: Acute cholecystitis/common bile duct dilatation- Admission to medical floor On Clear liquid diet. Patient appears stable. Afebrile for over 24 h. MRCP negative. Holding plavix and will have surgery on Monday. Ceftriaxone 2 g IV daily Zofran 4 mg IV every 6 hours as needed Famotidine 20 mg IV every 12 hours Dilaudid 0.25 mg IV every 3 hours as needed moderate pain Dilaudid 0.5 mg IV every 3 hours as needed severe pain Cut back to NSS + KCl 20 mEq at 50 mils per hour Appreciate input from Gen surgery. Cholcystectomy and ERCP scheduled for Monday ABEL 1.5 % Risk of myocardial infarction or cardiac arrest, intraoperatively or up to 30 days post-op R-RCRI Class III Risk 10.1 % 30-day risk of , [place], or cardiac arrest Patient is intermediate risk for an intermediate risk procedure. This could be life threatening if not treated and will not recommend any Cardiovascular testing in this case. Will forego repeat MRCP and will have ERCP in AM with cholecystectomy. (2) Common bile duct dilatation: See above (3) CKD (chronic kidney disease), stage III: CKD stage III/ hypokalemia- Creatinine 1.28 upon admission, with range 1.18-1.27 IV fluids as noted above and follow serial BMP and magnesium level (4) CAD (coronary artery disease): CAD/hypertension- Hold aspirin, clopidogrel, indapamide and losartan presurgery. Continue metoprolol succinate with hold parameters (5) Type 2 diabetes mellitus: Hold glipizide, Victoza and Metformin. Placed on Accu-Cheks before meals and at bedtime/every 6 hours with NovoLog coverage per scale (6) Acid reflux: Hold lansoprazole Placed on famotidine 20 mg IV every 12 hours (7) Asthma: Continue Breo Ellipta (8) Dyslipidemia: Hold atorvastatin until post procedure (9) Depression: Hold fluoxetine until post procedure Admission and Anticipated Discharge Date Admission Date: July 25, 2020 Subjective Patient reports no new symptoms. Review of Systems Review of Systems: All systems reviewed & are unremarkable except as noted in HPI & below Physical Exam Physical Exam: The patient is awake, alert and oriented 3, well developed and well nourished. HEENT--PERRL, EOMI, Neck--supple. No JVD. No bruits. Thyroid normal, trachea midline, no adenopathy. Heart--normal S1 and S2. No murmurs, rubs or gallops. Lungs--clear bilaterally, no respiratory distress, no accessory muscle use. Extremities--no cyanosis or clubbing. No edema. Dermatologic--normal skin turgor, normal color, no abnormal lymph nodes, no rash. Rheumatologic--normal range of motion. Psychiatric--normal affect. Results & Data Results & Data ([facility]) Vital Signs (Past 12 Hours) Vital Signs Temp Pulse Resp BP BP Pulse Ox 07/28/20 04:01 144/78 H 07/27/20 23:40 175/84 H 07/27/20 22:35 36.8 C 61 16 184/82 H 96 PG Care Time/CCT Total # of Minutes Spent Total Time Spent with Patient: Total time spent is greater than 50% in coordination of care (as documented) at patient's floor/unit and/or counseling patient: Coding Level of Care Code 90322 Subseq Hosp Care Lvl 2 Diagnoses Acute cholecystitis K81.0 Common bile duct dilatation K83.8 CKD (chronic kidney disease), stage III N18.3 CAD (coronary artery disease) I25.10 Type 2 diabetes mellitus E11.9 Acid reflux K21.9 Asthma J45.909 Dyslipidemia E78.5 Depression F32.9 Time Spent (min) 25
[2020-07-28 06:48] LABS: Hematocrit (blood only) 34.2 % (37-47); Hemoglobin 11.1 g/dL (12.0-16.0); Mean Corpuscular Hemoglobin 28.7 pg (25-34); Mean Corpuscular Hgb Conc 32.5 g/dL (32-36); Mean Corpuscular Volume 88.4 fL (80-100); Mean Platelet Volume 11.3 fL (7.4-10.4); Platelet Count 176 K/uL (130-400); RDW Coefficient of Variation 15.6 % (11.5-14.5); RDW Standard Deviation 50.4 fL (36.4-46.3); Red Blood Count 3.87 M/uL (4.2-5.4); White Blood Count 5.77 K/uL (4.8-10.8)
[2020-07-28 07:06] LABS: Albumin Level 2.6 gm/dl (3.4-5.0); BUN Creatinine Ratio 10.3 (10-20); Calcium 7.9 mg/dl (8.5-10.1); Creatinine Clr Calc Pharmacy 69.5 ml/min; Est GFR (African American) 75.6 ml/min; Est GFR (Non-African American) 65.2 ml/min
[2020-07-28 07:14] LABS: Albumin Globulin Ratio 0.9 (0.9-2); Bilirubin,Total 1.7 mg/dl (0.2-1); Globulin 2.9 gm/dl (2.5-4.0); Total Protein 5.5 gm/dl (6.4-8.2)
[2020-07-28] MEDS ORDERED: Nursing to Pharmacy Communication SCH ×2 (08:15→14:00)
[2020-07-28] MEDS: INSULIN ASPART 100 UNITS/ML 3 ML PEN SC SCH ×3 (08:32→21:18)
[2020-07-28] MEDS: METOPROLOL SUCC 50MG EXT REL TAB PO SCH (08:45)
[2020-07-28] MEDS: FLUTICASONE/VILANTEROL 200/25MCG 14 PUFFS/INHALER INH SCH (08:45)
--- NOTE | 2020-07-28 08:57 | Anesthesiology Consultation ---
Date of Service July 28, 2020 Assessment & Plan (1) Encounter for pre-operative examination: Chart Review Chart Review: Acceptable Risk for Surgery and Patient NOT seen in Pre Admission Testing Consults Requested none History Surgery Operation Date: 07/27/20 07:30 Proposed Procedures p Laparoscopic Cholecystectomy - Sean Allen MD, FACS Operation Date: 07/28/20 07:00 Proposed Procedures p Endoscopic Retrograde Cholangiopancreato - DO nikhil Walker Laparoscopic Cholecystectomy - Sean Allen MD, FACS Height/Weight Height: 5 ft 5 in Weight: 104.3 kg Allergies Allergy/AdvReac Type Severity Reaction Status Date / Time No Known Drug Allergies Allergy Unknown . Verified 07/24/20 22:08 Bae Pepper Allergy Mild itchy rash Uncoded 07/24/20 22:09 Medications Home Medications Medication Instructions Recorded Confirmed Last Taken hydrocodone-homatropine 5 mg-1.5 1 tab PO DAILY PRN #30 tab 11/12/18 07/24/20 Unknown mg tablet hydrochlorothiazide 25 mg tablet 25 mg PO DAILY PRN #30 tab 01/28/19 07/24/20 Unknown ezetimibe 10 mg tablet 10 mg PO DAILY #90 tab 10/14/19 07/24/20 06/08/20 fluoxetine 20 mg capsule 20 mg PO DAILY #90 cap 10/14/19 07/24/20 06/08/20 indapamide 1.25 mg tablet 1.25 mg PO DAILY #90 tab 10/14/19 07/24/20 06/09/20 05:30 losartan 100 mg tablet 100 mg PO DAILY #90 tab 10/14/19 07/24/20 06/09/20 05:30 metoprolol succinate 100 mg 100 mg PO DAILY #90 tab 10/14/19 07/24/20 06/09/20 05:30 tablet,extended release 24 hr albuterol sulfate 90 mcg/actuation 2 inh INHALATION Q4H PRN #8.5 g 11/06/19 07/24/20 Unknown aerosol inhaler azelastine 137 mcg (0.1 %) nasal 1 spray INTNAS BID PRN 01/15/20 07/24/20 Unknown spray aerosol fluticasone propionate 50 1 spray INTRANASAL BID PRN #1 gm 01/15/20 07/24/20 Unknown mcg/actuation nasal spray,suspension mometasone 0.1 % topical cream 1 applic TOPICAL BID PRN #1 gm 01/15/20 07/24/20 Unknown atorvastatin 80 mg tablet 80 mg PO DAILY #90 tab 01/17/20 07/24/20 06/08/20 budesonide-formoterol HFA 160 2 inh INHALATION BID #3 inhaler 01/30/20 07/24/20 06/09/20 05:30 mcg-4.5 mcg/actuation aerosol inhaler clopidogrel 75 mg tablet 75 mg PO DAILY #90 tab 01/30/20 07/24/20 06/08/20 lansoprazole 30 mg capsule,delayed 30 mg PO DAILY #90 cap 01/30/20 07/24/20 06/08/20 release metformin 500 mg tablet,extended 500 mg PO DAILY #90 tab 01/30/20 07/24/20 06/08/20 release 24 hr nitroglycerin 0.4 mg sublingual 0.4 mg SL .COMPLEX #20 tab 01/30/20 07/24/20 Unknown tablet glipizide 5 mg tablet, extended 5 mg PO DAILY #90 tab 04/07/20 07/24/20 06/08/20 release 24 hr calcium carbonate-vitamin D2 1 tab PO QAM 06/03/20 07/24/20 06/09/20 05:30 fluocinonide 0.05 % topical 1 applic TOPICAL BID PRN #60 ml 06/30/20 07/24/20 Unknown solution Tresiba FlexTouch U-100 20 unit SQ QPM 07/24/20 07/24/20 Unknown Victoza 3-Ant 1.8 mg SUBCUT QAM 07/24/20 07/24/20 Unknown aspirin [Aspir-Low] 81 mg PO DAILY 07/24/20 07/24/20 Unknown Active Medications Generic Name Dose Route Start Last Admin Trade Name Freq PRN Reason Stop Dose Admin Acetaminophen 650 mg 07/25/20 17:27 07/28/20 04:06 Acetaminophen 325 Mg Tab PO 08/24/20 17:26 650 mg Q4H PRN Administration Pain Diphenhydramine HCl 25 mg 07/26/20 05:30 07/26/20 19:50 Diphenhydramine Capsule 25 Mg Cap PO 08/25/20 05:29 25 mg Q6H PRN Administration Itching Fluticasone/Vilanterol 1 puffs 07/25/20 09:00 07/28/20 08:45 Fluticasone/Vilanterol 200/25mcg 14 Puffs/Inhaler INH 08/24/20 08:59 1 puffs DAILY SAUL Administration Heparin Sodium (Porcine) 5,000 units 07/25/20 09:00 07/26/20 09:17 Heparin Sod 5,000 Unit/0.5 Ml Vial SQ 08/24/20 08:59 5,000 units Q12 SAUL Administration Ceftriaxone Sodium 2,000 mg/ 70 mls @ 100 mls/hr 07/25/20 09:00 07/27/20 09:05 Dextrose IV 08/04/20 08:59 Infused DAILY SAUL Infusion Protocol Potassium Chloride/Sodium Chloride 20 meq in 1,000 mls @ 50 mls/hr 07/25/20 02:45 07/28/20 08:51 Normal Saline W/20 Meq Kcl IV 08/24/20 02:44 0 mls/hr .Q20H SAUL Infusion Ibuprofen 600 mg 07/25/20 17:27 07/26/20 19:50 Ibuprofen 600 Mg Tab PO 08/24/20 17:26 600 mg Q6H PRN Administration Pain Insulin Glargine 10 units 07/25/20 21:00 07/27/20 21:24 Insulin Glargine Solostar 100 Units/Ml 3 Ml Pen SQ 08/24/20 20:59 10 units QPM SAUL Administration Metoprolol Succinate 100 mg 07/25/20 09:00 07/28/20 08:45 Metoprolol Succ 50mg Ext Rel Tab PO 08/24/20 08:59 100 mg DAILY SAUL Administration NPO Date Last Intake of Fluids: 07/27/20 Time Last Intake of Fluids: 23:00 Past Medical History Medical History Anemia Arthritis Asthma RELATED TO SEASONAL/ENVIRONMENTAL ALLERGIES (HAS NOT USED RESCUE INHALER FOR A LONG TIME) Benign colonic polyp Diabetic retinopathy RT EYE (GETS INJECTION) GERD (gastroesophageal reflux disease) History of kidney stones Hx of gastric ulcer BLEED Hyperlipidemia Hypertension Myocardial Infarction AT AGE 53 Obesity Sleep apnea NO DEVICE CURRENLTY USED T2DM (type 2 diabetes mellitus) Thrombophlebitis DURING AROUND AGE 29 Past Family History Family History Unknown Arthritis Allergic rhinitis Father Prostate cancer Cardiac disorder Kidney stones Hypertension Mother Diabetes Hypertension Family history of diabetes mellitus Brother Diabetes Cancer Family history of diabetes mellitus Grandfather Cardiac disorder Other No family history of adverse response to anesthesia Past Surgical History Surgical History H/O total hysterectomy History of cardiac cath History of cataract surgery RT/LEFT History of colonoscopy (2013) History of dilation and curettage History of esophagogastroduodenoscopy (EGD) History of heart artery stent AT AGE 53>1 STENT PLACED AT [facility] (FOLLOWS WITH DR. CARDOZA) History of lithotripsy History of tonsillectomy and adenoidectomy History of tooth extraction History of tubal ligation S/P subtotal parathyroidectomy Social History Smoking Status: Never smoker Hx Alcohol Use: Yes Alcohol type: wine alcohol intake frequency: holidays/special occasions only Hx Substance Use: No substance use type: does not use Physical Exam Vital Signs Last Vital Signs Temp 36.8 C 07/28/20 07:38 Pulse 62 07/28/20 07:38 Resp 17 07/28/20 07:38 BP 163/77 H 07/28/20 07:38 Pulse Ox 94 07/28/20 07:38 Testing Laboratory Results 07/28/20 06:35 07/28/20 06:35 Hemoglobin A1c 7.5 % (4.5-5.6) H 07/25/20 00:01 Urine Color Dark Yellow 07/24/20 Unknown Urine Appearance Clear (Clear) 07/24/20 Unknown Urine pH 5.5 (4.5-7.5) 07/24/20 Unknown Ur Specific [place] 1.019 (1.000-1.030) 07/24/20 Unknown Urine Protein Negative (Negative) 07/24/20 Unknown Urine Glucose (UA) Negative (Negative) 07/24/20 Unknown Urine Ketones Negative (Negative) 07/24/20 Unknown Urine Nitrite Negative (Negative) 07/24/20 Unknown Ur Leukocyte Esterase Negative (Negative) 07/24/20 Unknown 07/24/20 23:55 Aerobic Blood Culture - Preliminary Blood No growth in Aerobic bottle after 48 hours. Anaerobic Blood Culture - Final Klebsiella oxytoca Klebsiella oxytoca#2 07/25/20 00:00 Aerobic Blood Culture - Final Blood Klebsiella oxytoca Klebsiella oxytoca#2 Anaerobic Blood Culture - Preliminary No growth in Anaerobic bottle after 48 hours. 07/28/20 07/27/20 05:52 20:54 POC Glucose 129 H 148 H Electrocardiogram Date: 08/24/20 Findings: + NSR @ (81) and + NSST changes low voltage QRS Chest X-Ray Date: 08/24/20 SINGLE VIEW CHEST CLINICAL HISTORY: Atypical chest pain. FINDINGS: An AP, portable, upright chest radiograph is compared to study dated 06/03/2020. The examination is degraded by portable technique and apical lordotic positioning. The heart is enlarged noting atherosclerotic calcification of the thoracic aorta. The pulmonary vasculature is noncongested. Chronic interstitial thickening is similar to previous. No airspace consolidation or large pleural effusion is identified. Apparent increase in density at the left lung base is related to overlying breast tissue. No pneumothorax is seen. The bony thorax is grossly intact. IMPRESSION: Mild cardiomegaly with no acute cardiopulmonary abnormality. ACT 112: Negative or not required by law. Electronically signed by: Noam Bower M.D. 07/24/2020 8:02 PM Dictated: 07/24/202000Transcribed: 07/24/202000
--- NOTE | 2020-07-28 09:01 | Gastroenterology Progress Note ---
Date of Service July 28, 2020 Assessment & Plan (1) Acute cholecystitis: (2) Elevated LFTs: 70 yo female w/ acute RUQ pain after eating, imaging consistent with acute cholecystitis, LFTs elevated and concern for stone in the bile duct. MRCP on 07/25 was negative. LFTs bumped yesterday raising concern for possible biliary obstruction npo for EUS/ERCP NPO for EUS/ERCP CCY per general surgery Continue to hold plavix Admission and Anticipated Discharge Date Admission Date: July 25, 2020 Supervising Physician Co-Signing Physician Notes I saw and evaluated the patient. We were consulted for history of abdominal discomfort and a significant elevation of her liver enzymes over the weekend. Based on the clinical scenario the patient has a high probability of retained common bile duct stone. Therefore we have discussed the risks and benefits of ERCP with a possible endoscopic ultrasound. The risks of ERCP include bleeding, infection, perforation, pancreatitis and failed biliary cannulation. Plan ERCP today Perioperative Indocin to be given Patient consented for EUS in case ERCP proves difficult Subjective pt was seen and evaluated, chart reviewed NPO for EUS/ERCP Abd pain is somewhat improved notes generalized fullness no nausea/vomiting passing gas but no BMs LFTs remain elevated Imaging reviewed. Review of Systems Review of Systems: All systems reviewed & are unremarkable except as noted in HPI & below Physical Exam Constitutional: WD/WN, vitals as above Neck: trachea midline, no thyromegaly Respiratory: normal respiratory effort, lungs clear to auscultation Gastrointestinal (Abdomen): normal bowel sounds, soft, nontender, no hepatosplenomegaly Skin: no rashes, warm and dry Results & Data ([facility]) Vital Signs (Past 12 Hours) Vital Signs Temp Pulse Resp BP BP Pulse Ox 07/28/20 07:38 36.8 C 62 17 163/77 H 94 07/28/20 04:01 144/78 H 07/27/20 23:40 175/84 H 07/27/20 22:35 36.8 C 61 16 184/82 H 96 Laboratory Results 07/28/20 07/28/20 07/28/20 Range/Units 06:35 06:35 05:52 WBC 5.77 (4.8-10.8) K/uL RBC 3.87 L (4.2-5.4) M/uL Hgb 11.1 L (12.0-16.0) g/dL Hct 34.2 L (37-47) % MCV 88.4 (80-100) fL MCH 28.7 (25-34) pg MCHC 32.5 (32-36) g/dL RDW Std Deviation 50.4 H (36.4-46.3) fL RDW Coeff of Diana 15.6 H (11.5-14.5) % Plt Count 176 (130-400) K/uL MPV 11.3 H (7.4-10.4) fL Immature Gran % (Auto) % Neut % (Auto) % Lymph % (Auto) % [place] % (Auto) % Eos % (Auto) % Baso % (Auto) % Neut # (Auto) (1.4-6.5) K/uL Lymph # (Auto) (1.2-3.4) K/uL [place] # (Auto) (0.11-0.59) K/uL Eos # (Auto) (0-0.5) K/uL Baso # (Auto) (0-0.2) K/uL Immature Gran # (Auto) (0.00-0.02) K/uL Sodium 145 (136-145) mmol/L Potassium 4.0 (3.5-5.1) mmol/L Chloride 115 H (98-107) mmol/L Carbon Dioxide 24 (21-32) mmol/L Anion Gap 6.0 (3-11) BUN 9 (7-18) mg/dl Creatinine 0.89 (0.6-1.2) mg/dl Est Cr Clr Drug Dosing 69.5 ml/min Est GFR ( Amer) 75.6 ml/min Est GFR (Non-Af Amer) 65.2 ml/min BUN/Creatinine Ratio 10.3 (10-20) Glucose 140 H (70-99) mg/dl POC Glucose 129 H (70-99) mg/dl Calcium 7.9 L (8.5-10.1) mg/dl Phosphorus (2.5-4.9) mg/dl Total Bilirubin 1.7 H D (0.2-1) mg/dl Direct Bilirubin (0-0.2) mg/dl AST 70 H (15-37) U/L ALT 128 H (12-78) U/L Alkaline Phosphatase 214 H (45-117) U/L Total Protein 5.5 L (6.4-8.2) gm/dl Albumin 2.6 L (3.4-5.0) gm/dl Globulin 2.9 (2.5-4.0) gm/dl Albumin/Globulin Ratio 0.9 (0.9-2) Lipase (73-393) U/L 07/27/20 07/27/20 07/27/20 Range/Units 20:54 17:17 11:58 WBC (4.8-10.8) K/uL RBC (4.2-5.4) M/uL Hgb (12.0-16.0) g/dL Hct (37-47) % MCV (80-100) fL MCH (25-34) pg MCHC (32-36) g/dL RDW Std Deviation (36.4-46.3) fL RDW Coeff of Diana (11.5-14.5) % Plt Count (130-400) K/uL MPV (7.4-10.4) fL Immature Gran % (Auto) % Neut % (Auto) % Lymph % (Auto) % [place] % (Auto) % Eos % (Auto) % Baso % (Auto) % Neut # (Auto) (1.4-6.5) K/uL Lymph # (Auto) (1.2-3.4) K/uL [place] # (Auto) (0.11-0.59) K/uL Eos # (Auto) (0-0.5) K/uL Baso # (Auto) (0-0.2) K/uL Immature Gran # (Auto) (0.00-0.02) K/uL Sodium (136-145) mmol/L Potassium (3.5-5.1) mmol/L Chloride (98-107) mmol/L Carbon Dioxide (21-32) mmol/L Anion Gap (3-11) BUN (7-18) mg/dl Creatinine (0.6-1.2) mg/dl Est Cr Clr Drug Dosing ml/min Est GFR ( Amer) ml/min Est GFR (Non-Af Amer) ml/min BUN/Creatinine Ratio (10-20) Glucose (70-99) mg/dl POC Glucose 148 H 156 H 186 H (70-99) mg/dl Calcium (8.5-10.1) mg/dl Phosphorus (2.5-4.9) mg/dl Total Bilirubin (0.2-1) mg/dl Direct Bilirubin (0-0.2) mg/dl AST (15-37) U/L ALT (12-78) U/L Alkaline Phosphatase (45-117) U/L Total Protein (6.4-8.2) gm/dl Albumin (3.4-5.0) gm/dl Globulin (2.5-4.0) gm/dl Albumin/Globulin Ratio (0.9-2) Lipase (73-393) U/L 07/27/20 07/27/20 07/27/20 Range/Units 08:29 08:29 08:29 WBC 5.65 (4.8-10.8) K/uL RBC 4.18 L (4.2-5.4) M/uL Hgb 11.9 L (12.0-16.0) g/dL Hct 37.1 (37-47) % MCV 88.8 (80-100) fL MCH 28.5 (25-34) pg MCHC 32.1 (32-36) g/dL RDW Std Deviation 49.6 H (36.4-46.3) fL RDW Coeff of Diana 15.4 H (11.5-14.5) % Plt Count 204 (130-400) K/uL MPV 12.1 H (7.4-10.4) fL Immature Gran % (Auto) 0.5 % Neut % (Auto) 69.6 % Lymph % (Auto) 15.4 % [place] % (Auto) 9.9 % Eos % (Auto) 4.2 % Baso % (Auto) 0.4 % Neut # (Auto) 3.93 (1.4-6.5) K/uL Lymph # (Auto) 0.87 L (1.2-3.4) K/uL [place] # (Auto) 0.56 (0.11-0.59) K/uL Eos # (Auto) 0.24 (0-0.5) K/uL Baso # (Auto) 0.02 (0-0.2) K/uL Immature Gran # (Auto) 0.03 H (0.00-0.02) K/uL Sodium 143 144 (136-145) mmol/L Potassium 3.6 3.6 (3.5-5.1) mmol/L Chloride 112 H 112 H (98-107) mmol/L Carbon Dioxide 25 24 (21-32) mmol/L Anion Gap 6.0 7.0 (3-11) BUN 12 12 (7-18) mg/dl Creatinine 1.04 1.07 (0.6-1.2) mg/dl Est Cr Clr Drug Dosing 59.5 57.8 ml/min Est GFR ( Amer) 62.6 60.5 ml/min Est GFR (Non-Af Amer) 54.0 52.2 ml/min BUN/Creatinine Ratio 11.1 11.5 (10-20) Glucose 170 H 172 H (70-99) mg/dl POC Glucose (70-99) mg/dl Calcium 8.4 L 8.5 (8.5-10.1) mg/dl Phosphorus 2.4 L D (2.5-4.9) mg/dl Total Bilirubin 3.5 H 3.7 H (0.2-1) mg/dl Direct Bilirubin 2.8 H (0-0.2) mg/dl AST 113 H 114 H (15-37) U/L ALT 172 H 173 H (12-78) U/L Alkaline Phosphatase 207 H 210 H (45-117) U/L Total Protein 6.1 L 6.1 L (6.4-8.2) gm/dl Albumin 2.9 L 2.9 L (3.4-5.0) gm/dl Globulin 3.2 (2.5-4.0) gm/dl Albumin/Globulin Ratio 0.9 (0.9-2) Lipase 226 (73-393) U/L
[2020-07-28] MEDS: cefTRIAXone SODIUM 2,000 MG in DEXTROSE 5% 50 ML IV SCH (09:21)
[2020-07-28] MEDS ORDERED: BUPIVACAINE 0.5 % 5 MG/1 ML MPF 30ML VIAL ONE (09:23)
[2020-07-28] MEDS ORDERED: INDOMETHACIN 50 MG SUPP PR ONE ×2 (09:24→09:51)
--- NOTE | 2020-07-28 09:24 | History & Physical Bridge Note ---
Date of Service July 28, 2020 History & Physical Bridge Note I have examined the patient, reviewed the History & Physical and in the interval since the performance of the History & Physical I have noted the following changes of clinical significance: no changes noted. The patient is to undergo further evaluation with ERCP today for suspected choledocholithiasis. Given the patient's rising bilirubin it is likely that she has a retained common bile duct stone.
[2020-07-28] MEDS ORDERED: ePHEDrine sulfate 50 MG/ML AMP IV PRN (09:31)
[2020-07-28] MEDS ORDERED: ATROPINE SULFATE 0.1 MG/ML 10ML SYR IV PRN (09:31)
[2020-07-28] MEDS ORDERED: PHENYLEPHRINE 100MCG/ML 5ML SYR IV PRN (09:31)
[2020-07-28] MEDS ORDERED: ONDANSETRON INJ 2 MG/ML 2 ML VIAL IV PRN ×2 (09:31→12:46)
[2020-07-28] MEDS ORDERED: HYDROmorphone INJ 1 MG/ML SYRINGE IV PRN (09:31)
[2020-07-28] MEDS ORDERED: fentaNYL citrate 100 MCG/2 ML VIAL IV PRN (09:31)
[2020-07-28] MEDS ORDERED: LABETALOL HCL IV 5 MG/ML 20ML IV PRN (09:31)
[2020-07-28] MEDS ORDERED: MEPERIDINE HCL 25 MG/ML CARP/VIAL IV PRN (09:31)
[2020-07-28] MEDS ORDERED: fentaNYL citrate 100 MCG/2 ML VIAL ONE ×2 (09:38→10:46)
[2020-07-28] MEDS ORDERED: MIDAZOLAM HCL 1 MG/ML 2ML VIAL ONE (09:38)
[2020-07-28] MEDS ORDERED: DEXAMETHASONE SOD INJ 4 MG/ML VIAL ONE (10:45)
[2020-07-28] MEDS ORDERED: PROPOFOL IV EMULSION 10 MG/ML 20 ML VIAL IV ONE (10:45)
[2020-07-28] MEDS ORDERED: ROCURONIUM BROMIDE 10 MG/ML 5 ML VIAL IV ONE (10:45)
[2020-07-28] MEDS ORDERED: GLYCOPYRROLATE 0.2 MG/ML VIAL ONE (10:45)
[2020-07-28] MEDS ORDERED: NEOSTIGMINE METHYLSULFATE 1 MG/ML 10ML VIAL ONE (10:45)
[2020-07-28] MEDS ORDERED: LIDOCAINE 2% 2 ML VIAL/AMP(20MG/ML) INFIL ONE (10:45)
[2020-07-28] MEDS ORDERED: ePHEDrine sulfate 50 MG/ML SYR ONE (10:45)
[2020-07-28] MEDS ORDERED: ONDANSETRON INJ 2 MG/ML 2 ML VIAL ONE (10:45)
--- NOTE | 2020-07-28 10:55 | Post Operative Brief Note ---
Immediate Post Op Note v1 Date of Surgery July 28, 2020 Pre & Post Diagnosis Operation Date: 07/27/20 07:30 <No data on this case meets the specified criteria> Operation Date: 07/28/20 07:00 Pre-Op Diagnosis: Acute Cholecystitis; Biliary Dilatation Post-Op Diagnosis: choledocholitiasis I identified the patient and participated in the time-out.: Yes Procedure Operation Date: 07/28/20 07:00 Actual Procedures p Endoscopic Retrograde Cholangiopancreatogram(Not Applicable) - Pedro Alejandra DO Surgeon Pedro Alejandra DO Fitness Worker none Estimated Blood Loss 0 Findings Consistent with Post-Op Diagnosis
--- NOTE | 2020-07-28 10:56 | Communication Note ---
Date of Service: July 28, 2020 The patient underwent ERCP this morning. It was somewhat of a difficult cannulation due to a stricture of the distal common bile duct and impacted stone. We were able to do a sphincterotomy, remove the stone and place a biliary stent. Recommendations Avoid nonsteroidals for 1 week if possible Cholecystectomy as planned today Repeat ERCP for stent removal in 6 to 8 weeks Continue antibiotic coverage for total of 10 days Please call with any questions or concerns
--- NOTE | 2020-07-28 11:10 | GI REPORT ---
Patient Name: Lashay Lopez Procedure Date: 07/28/2020 9:54 AM Date of : 1950 Admit Type: Inpatient Age: 70 Gender: Female Attending MD: Pedro Alejandra DO Procedure: ERCP Providers: Pedro Alejandra DO Referring MD: Clint Block Indications: Abdominal pain of suspected biliary origin, Suspected bile duct stone(s), Elevated liver enzymes Medicines: General Anesthesia Complications: No immediate complications. Estimated blood loss: Minimal. Estimated Blood Loss: Estimated blood loss was minimal. Procedure: Pre-Anesthesia Assessment: - Prior to the procedure, a History and Physical was performed, and patient medications, allergies and sensitivities were reviewed. The patient's tolerance of previous anesthesia was reviewed. - The risks and benefits of the procedure and the sedation options and risks were discussed with the patient. All questions were answered and informed consent was obtained. - Patient identification and proposed procedure were verified prior to the procedure by the physician, the nurse and the live in caregiver. The procedure was verified in the procedure room. - Pre-procedure physical examination revealed no contraindications to sedation. - ASA Grade Assessment: III - A patient with severe systemic disease. - After reviewing the risks and benefits, the patient was deemed in satisfactory condition to undergo the procedure. - The anesthesia plan was to use general anesthesia. - Immediately prior to administration of medications, the patient was re-assessed for adequacy to receive sedatives. - The heart rate, respiratory rate, oxygen saturations, blood pressure, adequacy of pulmonary ventilation, and response to care were monitored throughout the procedure. - The physical status of the patient was re-assessed after the procedure. After obtaining informed consent, the scope was passed under direct vision. Throughout the procedure, the patient's blood pressure, pulse, and oxygen saturations were monitored continuously. The Scope was introduced through the mouth, and advanced to the duodenum and used to inject contrast into the bile duct. The ERCP was accomplished without difficulty. The patient tolerated the procedure well. Findings: The coastal tug mate film was normal. The esophagus was successfully intubated under direct vision without detailed examination of the pharynx, larynx, and associated structures, and upper GI tract. The upper GI tract was grossly normal. The major papilla was bulging. The bile duct was deeply cannulated with the short-nosed traction sphincterotome and guidewire. Contrast was injected. I personally interpreted the bile duct images. Contrast extended to the entire biliary tree. The biliary orifice was stenotic. This appeared benign. The lower third of the main bile duct contained filling defect(s) thought to be a stone and sludge. Biliary sphincterotomy was made with a monofilament Dreamtome sphincterotome using ERBE electrocautery (several combinations were needed to include an omnitome with a 0.035 wire and a Rx 39 with a 0.25 Drream wire in addition to a 0.025 angled Acrobat 2 wire). There was no post-sphincterotomy bleeding. To discover objects, the biliary tree was swept with a 12 mm balloon starting at the bifurcation. Sludge was swept from the duct. One stone was removed. No stones remained. One 10 Fr by 7 cm biliary stent with a single external flap and a single internal flap was placed 7 cm into the common bile duct. Bile flowed through the stent. The stent was in good position. The endoscope was withdrawn from the patient. The total fluoroscopy exposure time was 39 seconds. Indomethacin 100 mg was given via suppository to decrease the risk of post-ERCP pancreatitis (PEP). Impression: - The major papilla appeared to be bulging. - Biliary papillary stenosis, benign. - A filling defect consistent with a stone and sludge was seen on the cholangiogram. - Choledocholithiasis was found. Complete removal was accomplished by biliary sphincterotomy and balloon extraction. - One biliary stent was placed into the common bile duct. - Indomethacin given to decrease risk of post-ERCP pancreatitis. Recommendation: - Avoid aspirin and nonsteroidal anti-inflammatory medicines for 1 week. - Clear liquid diet today. Cholecystectomy as planned with Dr. Allen. - Repeat ERCP in 6 weeks to remove stent. - Use broad spectrum antibiotics for a total of 7 days. Pedro Alejandra D.O. Pedro Alejandra DO 07/28/2020 11:09:51 AM This report has been signed electronically. Note Initiated On: 07/28/2020 9:54 AM Number of Addenda: 0 I attest to the content of the Intraoperative Record and orders documented therein, exceptions below {[id number]}
--- NOTE | 2020-07-28 11:31 | Post Operative Brief Note ---
[facility] Immediate Post Op with CF Date of Surgery July 28, 2020 Pre & Post Diagnosis Operation Date: 07/27/20 07:30 <No data on this case meets the specified criteria> Operation Date: 07/28/20 07:00 Pre-Op Diagnosis: Acute Cholecystitis; Biliary Dilatation Post-Op Diagnosis: Acute Cholecystitis; Biliary Dilatation I identified the patient and participated in the time-out.: Yes Procedure Operation Date: 07/27/20 07:30 <No data on this case meets the specified criteria> Operation Date: 07/28/20 07:00 Actual Procedures p Endoscopic Retrograde Cholangiopancreatogram(Not Applicable) - DO nikhil Walker Laparoscopic Cholecystectomy(Not Applicable) - Sean Allen MD, FACS Surgeon Sean Allen MD, FACS Bead Builder none Estimated Blood Loss 0 Findings Consistent with Post-Op Diagnosis Specimens Specimen Description: A. gallbladder (permanent)
[2020-07-28] MEDS ORDERED: ACETAMINOPHEN 1,000 MG/100 ML VIAL IV ONE (11:32)
[2020-07-28] MEDS ORDERED: LABETALOL HCL IV 5 MG/ML 20ML IV ONE (11:47)
--- NOTE | 2020-07-28 11:50 | Fluoroscopy Report ---
[place] ERCP biliary ductal CLINICAL HISTORY: Laparoscopic cholecystectomy. COMPARISON STUDY: MRCP dated 07/25/2020 FLUOROSCOPY TIME: 9 seconds. NUMBER OF FLUOROSCOPIC IMAGES: 5 FINDINGS: The common bile duct was cannulated and retrograde fashion and contrast was instilled. No d uctal filling defects are visualized. The cystic duct was filled and there is faint opacification of the gallbladder. The final image demonstrates placement of a biliary enteric stent. IMPRESSION: Fluoroscopic spot images obtained during performance of ERCP and placement of a biliary enteric stent ACT 112: Negative or not required by law. Electronically signed by: Logan Burnett M.D. 07/28/2020 11:48 AM
[2020-07-28] MEDS ORDERED: INSULIN ASPART 100 UNITS/ML 3 ML PEN SC SCH (12:00)
--- NOTE | 2020-07-28 12:13 | Operative Report (OR) ---
DATE OF OPERATION: 07/28/2020 NAME OF OPERATION: Laparoscopic cholecystectomy. PREOPERATIVE DIAGNOSES: Acute cholecystitis and common bile duct obstruction. POSTOPERATIVE DIAGNOSES: Acute cholecystitis and common bile duct obstruction with choledocholithiasis. STAFF SURGEON: Sean Allen MD. QUALITY SYSTEMS ENGINEER: Farhana Moore PA-C. ANESTHESIA: General. DESCRIPTION OF PROCEDURE: The patient was in the operating room. She had undergone ERCP with stone removal from the common bile duct. Her abdomen was prepped and draped in usual fashion. 0.5% plain Marcaine was used to anesthetize all incisions. Incision was made above the umbilicus, carrying dissection down to the fascia, placing a Veress needle producing pneumoperitoneum. An 11 mm port placed at this level. Under visualization, three 5 mm ports were placed, 1 cephalad and 2 laterally. The patient was placed in reverse Trendelenburg position. Her gallbladder was very large and distended. It was aspirated of bile and retracted. Dissection carried out the tiffany hepatis, identifying the cystic duct and cystic artery. These were clipped and transected and the gallbladder dissected away from the liver bed in the usual fashion. I did have to enlarge the fascial defect to remove the gallbladder, which was placed into an Endobag. After appropriate hemostasis and irrigation, all ports were removed. Fascia at the umbilicus closed using 0 Vicryl suture. Skin reapproximated using 5-0 Prolene suture. Dressings applied and patient transferred to recovery room in stable condition. My medical support assistant helped with prepping, draping, removal of the gallbladder and closure of the wounds. I attest to the content of the Intraoperative Record and any orders documented therein. Any exception s are noted below.
--- NOTE | 2020-07-28 12:29 | Anesthesiology Progress Note ---
Date of Service July 28, 2020 Anesthesia Post Procedure Vital Signs Vital Signs: Temp Pulse Pulse Resp BP BP Pulse Ox 07/28/20 12:20 62 18 176/84 H 96 07/28/20 12:10 65 18 168/86 H 97 07/28/20 12:00 67 18 180/92 H 97 07/28/20 11:55 80 18 174/94 H 98 07/28/20 11:52 36.3 C L 85 19 193/103 H 97 07/28/20 09:09 36.9 C 63 20 186/84 H 96 07/28/20 07:38 36.8 C 62 17 163/77 H 94 07/28/20 04:01 144/78 H 07/27/20 23:40 175/84 H 07/27/20 22:35 36.8 C 61 16 184/82 H 96 07/27/20 15:23 37.3 C 67 16 154/80 H 95 Pain Intensity Abdomen: Pain Intensity: 2 Head: Pain Intensity: 2 Generalized: Pain Intensity: 3 Transfer of Care Handoff Completed per policy Notes Mental Status: alert / awake / arousable Patient Amnestic to Procedure: Yes Nausea / Vomiting: adequately controlled Pain: adequately controlled Airway Patency, RR, SpO2: stable & adequate BP & HR: stable & adequate Hydration State: stable & adequate Anesthetic Complications: no major complications apparent and Pt Satisfied with anesthetic care Notes: The patient is awake and comfortable. Her vital signs are stable at her baseline.
[2020-07-28] MEDS ORDERED: PROMETHAZINE HCL 12.5 MG in SODIUM CHLORIDE 0.9% 50 ML IV PRN (12:46)
[2020-07-28] MEDS ORDERED: PROMETHAZINE HCL 25 MG in SODIUM CHLORIDE 0.9% 50 ML IV PRN (12:46)
[2020-07-28] MEDS ORDERED: HYDROCODONE/ACETAMOPHEN 5/325MG TAB PO PRN ×2 (12:46)
[2020-07-28] MEDS ORDERED: COUGH DROP (SUGAR FREE) LOZ 24 LOZ/1 BOX BUCCAL PRN (15:11)
[2020-07-28] MEDS: INSULIN GLARGINE SOLOSTAR 100 UNITS/ML 3 ML PEN SQ SCH (21:21)
--- NOTE | 2020-07-28 23:09 | Hospitalist Progress Note ---
Date of Service July 28, 2020 Assessment & Plan (1) Acute cholecystitis: Acute cholecystitis/common bile duct dilatation- Admission to medical floor On Clear liquid diet. Patient appears stable. Afebrile for over 24 h. MRCP negative. Holding plavix and will have surgery on Monday. Ceftriaxone 2 g IV daily Zofran 4 mg IV every 6 hours as needed Famotidine 20 mg IV every 12 hours Dilaudid 0.25 mg IV every 3 hours as needed moderate pain Dilaudid 0.5 mg IV every 3 hours as needed severe pain Cut back to NSS + KCl 20 mEq at 50 mils per hour Appreciate input from Gen surgery. Cholcystectomy and ERCP scheduled for Monday Acute cholecystitis and common bile duct obstruction with choledocholithiasis S/P cholecystectomy and gallstone removal from the common bile duct. Patient is feeling well. (2) Common bile duct dilatation: See above (3) CKD (chronic kidney disease), stage III: CKD stage III/ hypokalemia- Creatinine 1.28 upon admission, with range 1.18-1.27 IV fluids as noted above and follow serial BMP and magnesium level (4) CAD (coronary artery disease): CAD/hypertension- Hold aspirin, clopidogrel, indapamide and losartan presurgery. Continue metoprolol succinate with hold parameters (5) Type 2 diabetes mellitus: Hold glipizide, Victoza and Metformin. Placed on Accu-Cheks before meals and at bedtime/every 6 hours with NovoLog coverage per scale (6) Acid reflux: Hold lansoprazole Placed on famotidine 20 mg IV every 12 hours (7) Asthma: Continue Breo Ellipta (8) Dyslipidemia: Hold atorvastatin until post procedure (9) Depression: Hold fluoxetine until post procedure Admission and Anticipated Discharge Date Admission Date: July 25, 2020 Subjective Patient reports feeling well. Review of Systems Review of Systems: All systems reviewed & are unremarkable except as noted in HPI & below Physical Exam Physical Exam: The patient is awake, alert and oriented 3, well developed and well nourished. HEENT--PERRL, EOMI, Neck--supple. No JVD. No bruits. Thyroid normal, trachea midline, no adenopathy. Heart--normal S1 and S2. No murmurs, rubs or gallops. Lungs--clear bilaterally, no respiratory distress, no accessory muscle use. Extremities--no cyanosis or clubbing. No edema. Dermatologic--normal skin turgor, normal color, no abnormal lymph nodes, no rash. Rheumatologic--normal range of motion. Psychiatric--normal affect. Results & Data Results & Data ([facility]) Vital Signs (Past 12 Hours) Vital Signs Temp Pulse Pulse Resp BP Pulse Ox 07/28/20 15:55 36.4 C L 61 17 152/78 H 91 07/28/20 14:59 36.4 C L 65 18 163/70 H 90 07/28/20 13:45 36.4 C L 64 17 184/81 H 96 07/28/20 13:15 36.6 C 57 L 16 170/91 H 95 07/28/20 13:01 36.4 C L 57 L 16 168/80 H 95 07/28/20 12:30 36.4 C L 59 L 18 161/76 H 94 07/28/20 12:20 62 18 176/84 H 96 07/28/20 12:10 65 18 168/86 H 97 07/28/20 12:00 67 18 180/92 H 97 07/28/20 11:55 80 18 174/94 H 98 07/28/20 11:52 36.3 C L 85 19 193/103 H 97 PG Care Time/CCT Total # of Minutes Spent Total Time Spent with Patient: Total time spent is greater than 50% in coordination of care (as documented) at patient's floor/unit and/or counseling patient: Coding Level of Care Code 96220 Subseq Hosp Care Lvl 2 Diagnoses Acute cholecystitis K81.0 Common bile duct dilatation K83.8 CKD (chronic kidney disease), stage III N18.3 CAD (coronary artery disease) I25.10 Type 2 diabetes mellitus E11.9 Acid reflux K21.9 Asthma J45.909 Dyslipidemia E78.5 Depression F32.9 Time Spent (min) 25
[2020-07-29 05:54] LABS: Basophils # (auto) 0.01 K/uL (0-0.2); Basophils % (auto) 0.1 %; Eosinophils # (auto) 0.03 K/uL (0-0.5); Eosinophils % (auto) 0.4 %; Hematocrit (blood only) 34.8 % (37-47); Hemoglobin 11.2 g/dL (12.0-16.0); Immature Granulocytes # (auto) 0.05 K/uL (0.00-0.02); Immature Granulocytes % (auto) 0.6 %; Lymphocytes # (auto) 1.33 K/uL (1.2-3.4); Lymphocytes % (auto) 15.9 %; Mean Corpuscular Hemoglobin 27.9 pg (25-34); Mean Corpuscular Hgb Conc 32.2 g/dL (32-36); Mean Corpuscular Volume 86.6 fL (80-100); Mean Platelet Volume 11.3 fL (7.4-10.4); Monocytes # (auto) 0.71 K/uL (0.11-0.59); Monocytes % (auto) 8.5 %; Neutrophils # (auto) 6.24 K/uL (1.4-6.5); Neutrophils % (auto) 74.5 %; Platelet Count 216 K/uL (130-400); RDW Coefficient of Variation 15.7 % (11.5-14.5); RDW Standard Deviation 50.2 fL (36.4-46.3); Red Blood Count 4.02 M/uL (4.2-5.4); White Blood Count 8.37 K/uL (4.8-10.8)
[2020-07-29 06:52] LABS: Albumin Globulin Ratio 0.9 (0.9-2); Albumin Level 2.7 gm/dl (3.4-5.0); BUN Creatinine Ratio 14.7 (10-20); Bilirubin Direct 0.7 mg/dl (0-0.2); Bilirubin,Total 1.2 mg/dl (0.2-1); Creatinine Clr Calc Pharmacy 65.1 ml/min; Est GFR (African American) 69.8 ml/min; Est GFR (Non-African American) 60.3 ml/min; Globulin 3.1 gm/dl (2.5-4.0); Phosphorus 3.2 mg/dl (2.5-4.9); Total Protein 5.8 gm/dl (6.4-8.2)
[2020-07-29 06:53] LABS: Albumin Level 2.8 gm/dl (3.4-5.0); BUN Creatinine Ratio 13.6 (10-20); Bilirubin Direct 0.7 mg/dl (0-0.2); Bilirubin,Total 1.1 mg/dl (0.2-1); Calcium 7.9 mg/dl (8.5-10.1); Creatinine Clr Calc Pharmacy 61.8 ml/min; Est GFR (African American) 65.6 ml/min; Est GFR (Non-African American) 56.6 ml/min
[2020-07-29] MEDS: cefTRIAXone SODIUM 2,000 MG in DEXTROSE 5% 50 ML IV SCH (08:26)
[2020-07-29] MEDS: FLUTICASONE/VILANTEROL 200/25MCG 14 PUFFS/INHALER INH SCH (08:28)
[2020-07-29] MEDS: METOPROLOL SUCC 50MG EXT REL TAB PO SCH (08:29)
--- NOTE | 2020-07-29 08:41 | Surgery Progress Note ---
Date of Service July 29, 2020 Assessment & Plan (1) S/P laparoscopic cholecystectomy: POD#1 lap sandrine (Dr. Allen)/ ERCP with biliary stenting (GI) WBC 8, LFT's downtrending Tb: 1.1 (1.7), AST: 51, ALT: 109, AlkP: 191 Patient overall doing well, we are okay with advancing diet Abx plan per GI; red'c 7 more days s/p ERCP Okay to resume Plavix from our standpoint when okay with GI/medicine Okay for discharge from our end when cleared by medicine, we will provide dispo instructions and have pt follow up with Dr. Allen in clinic in 1-2 weeks Admission and Anticipated Discharge Date Admission Date: July 25, 2020 Subjective Patient states she is feeling okay this AM. Has some R shoulder pain that is improving and some expected juan-incisional discomfort. Overall she says her pain is much improved since admission. She is tolerating liquids without nausea/vomiting, but does not like the options given to her to drink. She would like to try something more. Physical Exam Physical Exam: awake/alert Constitutional: no acute distress Respiratory: normal respiratory effort Gastrointestinal (Abdomen): Inspection/Auscultation: + abdominal surgical incision (surgical dressings in place; c/d/i); abdomen not distended Percussion/Palpation: + abdomen tender (mild discomfort to palpation juan- incisionally ) and abdomen soft Results & Data ([facility]) Vital Signs (Past 12 Hours) Vital Signs Temp Pulse Resp BP Pulse Ox 07/29/20 07:47 37.1 C 64 17 151/80 H 92 07/29/20 03:45 37.3 C 63 16 128/61 92 07/28/20 23:35 36.6 C 59 L 16 142/74 H 94 PG Care Time/CCT Total # of Minutes Spent Total Time Spent with Patient: Total time spent is greater than 50% in coordination of care (as documented) at patient's floor/unit and/or counseling patient: Coding Level of Care Code None Diagnoses S/P laparoscopic cholecystectomy Z90.49
[2020-07-29] MEDS ORDERED: HEPARIN SOD 5,000 UNIT/0.5 ML VIAL SQ SCH (09:00)
--- NOTE | 2020-07-29 09:47 | Gastroenterology Progress Note ---
Date of Service July 29, 2020 Assessment & Plan (1) Acute cholecystitis: (2) Elevated LFTs: 70 yo female w/ acute RUQ pain after eating, imaging consistent with acute cholecystitis, LFTs elevated and concern for stone in the bile duct. MRCP on 07/25 was negative. S/P ERCP w/ stone extraction, stent placement and CCY to follow clinically feeling well. LFTs decreasing but not normalized quite yet No contraindication to diet No contraindication to discharge No NSAID x 1 week Continue ABX for a total of 7 days OP ERCP in 6 weeks for stent removal with Dr. Alejandra Will sign off. Thank you for allowing us to participate in the care of this patient. Please call with any acute changes, questions or concerns. Please see addendum below with additional recommendation from my supervising physician. Admission and Anticipated Discharge Date Admission Date: July 25, 2020 Supervising Physician Co-Signing Physician Notes I saw and evaluated the patient. She underwent cholecystectomy and ERCP yesterday for complications related to choledocholithiasis. The patient reports feeling well today and is tolerating p.o. Recommendations Repeat liver enzymes in 2 to 4 weeks Avoid nonsteroidals for 1 week Antibiotic coverage for total of 10 days Repeat ERCP for biliary stent removal in 6 to 8 weeks Please call with any questions or concerns GI to sign off Subjective feeling well s/p ERCP and ccy no abd pain but some surgical site incision cutaneous discomfort no nausea, vomiting no GERD passing gas but no BM biliary stent in place Review of Systems Review of Systems: All systems reviewed & are unremarkable except as noted in HPI & below Physical Exam Constitutional: WD/WN, vitals as above Neck: trachea midline, no thyromegaly Respiratory: normal respiratory effort, lungs clear to auscultation Cardiovascular: RRR, no murmur, no edema Gastrointestinal (Abdomen): normal bowel sounds, soft, nontender, no hepatosplenomegaly Results & Data ([facility]) Vital Signs (Past 12 Hours) Vital Signs Temp Pulse Resp BP Pulse Ox 07/29/20 07:47 37.1 C 64 17 151/80 H 92 07/29/20 03:45 37.3 C 63 16 128/61 92 07/28/20 23:35 36.6 C 59 L 16 142/74 H 94 Laboratory Results 07/29/20 07/29/20 07/29/20 Range/Units 08:31 05:39 05:39 WBC (4.8-10.8) K/uL RBC (4.2-5.4) M/uL Hgb (12.0-16.0) g/dL Hct (37-47) % MCV (80-100) fL MCH (25-34) pg MCHC (32-36) g/dL RDW Std Deviation (36.4-46.3) fL RDW Coeff of Diana (11.5-14.5) % Plt Count (130-400) K/uL MPV (7.4-10.4) fL Immature Gran % (Auto) % Neut % (Auto) % Lymph % (Auto) % Carlisle % (Auto) % Eos % (Auto) % Baso % (Auto) % Neut # (Auto) (1.4-6.5) K/uL Lymph # (Auto) (1.2-3.4) K/uL Carl[place] # (Auto) (0.11-0.59) K/uL Eos # (Auto) (0-0.5) K/uL Baso # (Auto) (0-0.2) K/uL Immature Gran # (Auto) (0.00-0.02) K/uL Sodium 140 140 (136-145) mmol/L Potassium 4.0 4.0 (3.5-5.1) mmol/L Chloride 108 H 108 H (98-107) mmol/L Carbon Dioxide 27 27 (21-32) mmol/L Anion Gap 5.0 5.0 (3-11) BUN 14 14 D (7-18) mg/dl Creatinine 1.00 0.95 (0.6-1.2) mg/dl Est Cr Clr Drug Dosing 61.8 65.1 ml/min Est GFR ( Amer) 65.6 69.8 ml/min Est GFR (Non-Af Amer) 56.6 60.3 ml/min BUN/Creatinine Ratio 13.6 14.7 (10-20) Glucose 156 H 161 H (70-99) mg/dl POC Glucose 148 H (70-99) mg/dl Calcium 7.9 L 8.0 L (8.5-10.1) mg/dl Phosphorus 3.2 (2.5-4.9) mg/dl Total Bilirubin 1.1 H 1.2 H (0.2-1) mg/dl Direct Bilirubin 0.7 H 0.7 H D (0-0.2) mg/dl AST 51 H 52 H (15-37) U/L ALT 109 H 108 H (12-78) U/L Alkaline Phosphatase 191 H 195 H (45-117) U/L Total Protein 6.0 L 5.8 L (6.4-8.2) gm/dl Albumin 2.8 L 2.7 L (3.4-5.0) gm/dl Globulin 3.1 (2.5-4.0) gm/dl Albumin/Globulin Ratio 0.9 (0.9-2) 07/29/20 07/28/20 07/28/20 Range/Units 05:39 20:57 16:58 WBC 8.37 (4.8-10.8) K/uL RBC 4.02 L (4.2-5.4) M/uL Hgb 11.2 L (12.0-16.0) g/dL Hct 34.8 L (37-47) % MCV 86.6 (80-100) fL MCH 27.9 (25-34) pg MCHC 32.2 (32-36) g/dL RDW Std Deviation 50.2 H (36.4-46.3) fL RDW Coeff of Diana 15.7 H (11.5-14.5) % Plt Count 216 (130-400) K/uL MPV 11.3 H (7.4-10.4) fL Immature Gran % (Auto) 0.6 % Neut % (Auto) 74.5 % Lymph % (Auto) 15.9 % Carlisle % (Auto) 8.5 % Eos % (Auto) 0.4 % Baso % (Auto) 0.1 % Neut # (Auto) 6.24 (1.4-6.5) K/uL Lymph # (Auto) 1.33 (1.2-3.4) K/uL Carlisle # (Auto) 0.71 H (0.11-0.59) K/uL Eos # (Auto) 0.03 (0-0.5) K/uL Baso # (Auto) 0.01 (0-0.2) K/uL Immature Gran # (Auto) 0.05 H (0.00-0.02) K/uL Sodium (136-145) mmol/L Potassium (3.5-5.1) mmol/L Chloride (98-107) mmol/L Carbon Dioxide (21-32) mmol/L Anion Gap (3-11) BUN (7-18) mg/dl Creatinine (0.6-1.2) mg/dl Est Cr Clr Drug Dosing ml/min Est GFR ( Amer) ml/min Est GFR (Non-Af Amer) ml/min BUN/Creatinine Ratio (10-20) Glucose (70-99) mg/dl POC Glucose 219 H 203 H (70-99) mg/dl Calcium (8.5-10.1) mg/dl Phosphorus (2.5-4.9) mg/dl Total Bilirubin (0.2-1) mg/dl Direct Bilirubin (0-0.2) mg/dl AST (15-37) U/L ALT (12-78) U/L Alkaline Phosphatase (45-117) U/L Total Protein (6.4-8.2) gm/dl Albumin (3.4-5.0) gm/dl Globulin (2.5-4.0) gm/dl Albumin/Globulin Ratio (0.9-2) 07/28/20 07/28/20 Range/Units 12:48 11:56 WBC (4.8-10.8) K/uL RBC (4.2-5.4) M/uL Hgb (12.0-16.0) g/dL Hct (37-47) % MCV (80-100) fL MCH (25-34) pg MCHC (32-36) g/dL RDW Std Deviation (36.4-46.3) fL RDW Coeff of Diana (11.5-14.5) % Plt Count (130-400) K/uL MPV (7.4-10.4) fL Immature Gran % (Auto) % Neut % (Auto) % Lymph % (Auto) % [place] % (Auto) % Eos % (Auto) % Baso % (Auto) % Neut # (Auto) (1.4-6.5) K/uL Lymph # (Auto) (1.2-3.4) K/uL [place] # (Auto) (0.11-0.59) K/uL Eos # (Auto) (0-0.5) K/uL Baso # (Auto) (0-0.2) K/uL Immature Gran # (Auto) (0.00-0.02) K/uL Sodium (136-145) mmol/L Potassium (3.5-5.1) mmol/L Chloride (98-107) mmol/L Carbon Dioxide (21-32) mmol/L Anion Gap (3-11) BUN (7-18) mg/dl Creatinine (0.6-1.2) mg/dl Est Cr Clr Drug Dosing ml/min Est GFR ( Amer) ml/min Est GFR (Non-Af Amer) ml/min BUN/Creatinine Ratio (10-20) Glucose (70-99) mg/dl POC Glucose 203 H 181 H (70-99) mg/dl Calcium (8.5-10.1) mg/dl Phosphorus (2.5-4.9) mg/dl Total Bilirubin (0.2-1) mg/dl Direct Bilirubin (0-0.2) mg/dl AST (15-37) U/L ALT (12-78) U/L Alkaline Phosphatase (45-117) U/L Total Protein (6.4-8.2) gm/dl Albumin (3.4-5.0) gm/dl Globulin (2.5-4.0) gm/dl Albumin/Globulin Ratio (0.9-2)
[2020-07-29] MEDS: INSULIN ASPART 100 UNITS/ML 3 ML PEN SC SCH ×2 (09:48→13:29)
--- NOTE | 2020-07-29 13:26 | Discharge Summary ---
Date of Service July 29, 2020 Admission HPI Per Admitting Provider The patient is a 70-year-old female with a past medical history including chronic kidney disease stage III, asthma, depression, hypertension, GERD, allergic rhinitis, anemia, CAD, dyslipidemia, GERD without esophagitis, h yperparathyroidism, KYLEE, diabetes mellitus type 2, vitamin D deficiency and left carpal tunnel syndrome. She presents with symptoms as noted above. Work-up in the emergency department included following abnormal laboratories: Potassium 3.0, creatinine 1.28, total bilirubin 1.9, direct bilirubin 1.1, AST 368, ALT 179. Following imaging studies were performed: Gallbladder ultrasound showed a disten ded gallbladder, bile duct up to [address] scan of abdomen the pelvis showed distended gallbladder. The patient was given Zosyn 4.5 g IV, famotidine 20 mg IV, Tylenol 1000 mg IV and morphine sulfate 4 mg IV by the ED. General surgery was consulted, and asked that the patient be admitted to the medical service for further assessment before surgery, including MRCP. Principal Diagnosis Acute choledocholithiasis with cholecystitis and cholangitis, Klebsiella bacteremia, biliary duct stricture status post stent placement Discharge Exam Constitutional WD/WN, vitals as above Eyes + anicteric sclerae ENMT external ear and nose normal, oropharynx normal Neck trachea midline, no thyromegaly Respiratory normal respiratory effort, lungs clear to auscultation Cardiovascular RRR, no murmur, no edema Chest (Breasts) Chest: normal inspection of chest Gastrointestinal (Abdomen) normal bowel sounds, soft, nontender, no hepatosplenomegaly Inspection/Auscultation: + abdomen abnormal to inspection (Multiple dressings in place over incisions clean dry and intact) Musculoskeletal Extremities: extremities normal to inspection; no cyanosis and no clubbing Skin no rashes, warm and dry Neurologic moves all extremities and awake; no focal motor deficits Psychiatric A+Ox3, euthymic affect Lymphatic no lymphedema Discharge Data Allergies Allergy/AdvReac Type Severity Reaction Status Date / Time green pepper Allergy Mild Rash Verified 07/28/20 10:43 No Known Drug Allergies Allergy Unknown . Verified 07/24/20 22:08 Consultations 07/24/20 23:52 ED Decision to Admit Stat 07/26/20 09:42 Consult Gastroenterology Routine Procedures Performed Operation Date: 07/27/20 07:30 <No data on this case meets the specified criteria> Operation Date: 07/28/20 07:00 Actual Procedures p Endoscopic Retrograde Cholangiopancreatogram(Not Applicable) - DO nikhil Walker Laparoscopic Cholecystectomy(Not Applicable) - Sean Allen MD, FACS Ordered Studies 07/24/20 19:30 CT abd pelvis IV con only Stat 07/24/20 22:18 US gallbladder Stat 07/25/20 04:26 MR MRCP Routine 07/28/20 FL ERCP biliary ductal Routine Chest X-Ray 07/24/20 19:28 SINGLE VIEW CHEST CLINICAL HISTORY: Atypical chest pain. FINDINGS: An AP, portable, upright chest radiograph is compared to study dated 06/03/2020. The examination is degraded by portable technique and apical lordotic positioning. The heart is enlarged noting atherosclerotic calcification of the thoracic aorta. The pulmonary vasculature is noncongested. Chronic interstitial thickening is similar to previous. No airspace consolidation or large pleural effusion is identified. Apparent increase in density at the left lung base is related to overlying breast tissue. No pneumothorax is seen. The bony thorax is grossly intact. IMPRESSION: Mild cardiomegaly with no acute cardiopulmonary abnormality. ACT 112: Negative or not required by law. Electronically signed by: Noam Bower M.D. 07/24/2020 8:02 PM Abdomen/Pelvis CT 07/24/20 19:30 CT SCAN OF THE ABDOMEN AND PELVIS WITH IV CONTRAST CLINICAL HISTORY: Epigastric and right upper quadrant abdominal pain. COMPARISON STUDY: Abdominal CT dated 01/01/2015. TECHNIQUE: Following the IV administration of 89 cc of Optiray 320, CT scan of the abdomen and pelvis is performed from the lung bases to the proximal femora. Images are reviewed in the axial, sagittal, and coronal planes. IV contrast was administered without complication. A dose lowering technique was utilized adher ing to the principles of ALARA. CT DOSE: 1278.62 mGy.cm FINDINGS: Lung bases: The heart is normal in size and without pericardial effusion. There are coronary artery calcifications. Small hiatal hernia is noted. The lung bases are clear noting bibasilar scarring/atelectasis. Liver: The contrast-enhanced liver is normal in size, contour, and attenuation. There is no intrahepatic biliary ductal dilatation. The hepatic veins and portal veins are patent. Gallbladder: The gallbladder is distended. There is mild gallbladder wall thickening and faint pericholecystic stranding. Spleen: Normal in size and attenuation. Pancreas: Unremarkable. Adrenal glands: Unremarkable. Kidneys: The contrast enhanced kidneys demonstrate cortical atrophy and are without hydronephrosis. There are small bilateral extrarenal pelvises. The kidneys enhance symmetrically. Abdominal vasculature: The abdominal aorta is normal in course and caliber noting moderate to advanced atherosclerotic calcification. Bowel: There is moderate diverticulosis of the left colon without CT evidence of acute diverticulitis. No bowel obstruction is seen. The appendix is well- visualized and normal. Peritoneum: There is no intraperitoneal free air or abdominal ascites. There is a fat-containing umbilical hernia. Lymphadenopathy: None. Pelvic viscera: The bladder is normal as visualized. The uterus is surgically absent. No adnexal lesion is seen. Skeletal structures: The skeletal structures are osteopenic. There is moderate lumbosacral spondylosis. A large disc herniation is noted at L4-L5. No lytic or blastic lesions are seen. IMPRESSION: 1. The gallbladder is distended and abnormal in appearance. Correlate with clinical findings and laboratory studies for evidence of acute cholecystitis. Correlation with a right upper quadrant ultrasound is recommended. 2. There is moderate diverticulosis of left colon without CT evidence of acute diverticulitis. 3. Additional findings as above. ACT 112: Negative or not required by law. Electronically signed by: Noam Bower M.D. 07/24/2020 10:10 PM Gallbladder Ultrasound 07/24/20 22:18 ULTRASOUND RIGHT UPPER QUADRANT ABDOMEN CLINICAL HISTORY: Right upper quadrant abdominal pain. Elevated bilirubin. COMPARISON STUDY: Abdominal CT dated 07/24/2020. Abdominal ultrasound dated 07/18/2016 TECHNIQUE: Real-time, grayscale, and color flow sonography of the right upper quadrant of the abdomen was performed. Images are reviewed in the transverse and longitudinal planes. FINDINGS: Liver: The liver is normal in size and heterogeneous in echotexture. There is no intrahepatic biliary ductal dilatation. The main portal vein is patent. Gallbladder: The gallbladder is distended. No shadowing gallstones are identified. The gallbladder wall appears mildly thickened and edematous. No pericholecystic fluid is identified. A sonographic Jc's sign could not be assessed as the patient received analgesia. The common bile duct measures up to 0.9 cm in diameter. Pancreas: Visualized portions of the pancreatic head and body are normal in appearance. The splenic vein is patent. Right kidney: Survey images of the right kidney demonstrate cortical atrophy. Echotexture is normal. There is no hydronephrosis. Mild fullness of the right renal collecting system is similar to previous. Ascites: None. IMPRESSION: 1. The gallbladder is mildly distended, and the wall appears mildly thickened and edematous. No shadowing gallstones are identified. A sonographic Jc's sign could not be evaluated. These findings could be related to adjacent hepatocellular disease. Findings are equivocal for acute cholecystitis which is not excluded. If there is strong clinical concern for acute cholecystitis a nuclear hepatobiliary scan could be considered for further evaluation. 2. The common bile duct is mildly dilated measuring up to 9 mm in diameter, and measured up to 7 mm in 2017. There is no significant intrahepatic ductal dilatation. 3. Hepatic echotexture is heterogeneous. ACT 112: Negative or not required by law. Electronically signed by: Noam Bower M.D. 07/24/2020 11:49 PM Cholangiopancreatography MRI 07/25/20 04:26 MRCP CLINICAL HISTORY: cholecystitis, assess for choledocholithiasis TECHNIQUE: Utilizing a 1.5 Merly magnet and dedicated coil, multiplanar, multiecho imaging of the upper abdomen was performed utilizing heavily T2 weighted pulsing sequences without IV contrast. COMPARISON STUDY: CT of the abdomen and pelvis and right upper quadrant ultrasound July 24, 2020. FINDINGS: There is no intra or extrahepatic biliary ductal dilatation. The common bile duct measures 6 mm in caliber. No common bile duct calculi are identified. The course and caliber of the main pancreatic duct is normal. There is no peripancreatic infiltration or fluid. No hepatic lesions are identified on this unenhanced examination. Note is made of mild gallbladder wall thickening with trace pericholecystic fluid. No gallstones are identified within the gallbladder by MRI. Spleen is at the upper limits of normal for size. A subcent imeter T2 hyperintense lesion within the spleen is likely benign. A 1 cm T2 hyperintense right adrenal nodule is indeterminate. There is no hydronephrosis. T2 hyperintense lesions within the kidneys are suboptimally assessed by MRI but probably reflect cysts. There is no abdominal lymphadenopathy or ascites. IMPRESSION: 1. No biliary ductal dilatation. No common bile duct calculi identified. 2. Mild gallbladder wall thickening and trace pericholecystic fluid. Acute cholecystitis cannot be excluded. 3. 1 cm T2 hyperintense right adrenal nodule which is indeterminate. ACT 112: Negative or not required by law. Electronically signed by: Jose Abebe M.D. 07/25/2020 11:49 AM Endo Retro Cholangiopancreatogram 07/28/20 00:00 [place] ERCP biliary ductal CLINICAL HISTORY: Laparoscopic cholecystectomy. COMPARISON STUDY: MRCP dated 07/25/2020 FLUOROSCOPY TIME: 9 seconds. NUMBER OF FLUOROSCOPIC IMAGES: 5 FINDINGS: The common bile duct was cannulated and retrograde fashion and contrast was instilled. No ductal filling defects are visualized. The cystic duct was filled and there is faint opacification of the gallbladder. The final image demonstrates placement of a biliary enteric stent. IMPRESSION: Fluoroscopic spot images obtained during performance of ERCP and placement of a biliary enteric stent ACT 112: Negative or not required by law. Electronically signed by: Logan Burnett M.D. 07/28/2020 11:48 AM Hospital Course (1) Acute cholecystitis: Patient presented with right upper quadrant pain and was found to have acute cholecystitis/common bile duct dilatation- She was treated with antibiotics and seen in consultation by gastroenterology and general surgery MRCP negative but GI suspected retained stone as LFTs were elevated. She underwent ERCP with stone removal and stricture found in CBD which was dilated and a stent was placed She was found to have a Klebsiella bacteremia which is secondary to acute cholangitis She then underwent laparoscopic cholecystectomy on 07/28 She is doing very well postop day #1 and tolerating a regular diet She was stable for discharge from surgical standpoint She will continue on a total of 10-day course of antibiotics-she received IV ceftriaxone while hospitalized and will convert to Augmentin 875 mg p.o. twice daily x7 more days after discharge She is doing well and is afebrile, minimal abdominal pain, ambulating, moving bowels. Follow-up with surgery within 1 week Needs follow-up with GI in 6 to 8 weeks for repeat ERCP for stent removal Follow-up LFTs in 2 weeks to ensure that they are back to normal as they remained minimally elevated on the day of discharge (2) Choledocholithiasis: As above (3) Bacteremia: With Klebsiella oxytoca Treating with Augmentin on discharge (4) Common bile duct dilatation: See above (5) CKD (chronic kidney disease), stage III: CKD stage III/ hypokalemia- Creatinine 1.28 upon admission, with range 1.18-1.27 Doing well and renal function is stable on the day of discharge (6) CAD (coronary artery disease): No chest pains. Initial EKG showed some mild ST depression in the lateral leads, however troponin was negative Doing well Hold home aspirin and Plavix for 6 more days given placement of CBD stent after dilation Continue metoprolol, atorvastatin, Zetia (7) Type 2 diabetes mellitus: Blood sugars were controlled-during admission, her home medications were held -Okay to restart glipizide, Victoza and Metformin as well as Tresiba upon discharge. (8) Acid reflux: Continue home lansoprazole (9) Asthma: Continue Breo Ellipta, no acute issues (10) Dyslipidemia: Okay to restart home atorvastatin upon discharge (11) Depression: Restart home fluoxetine upon discharge (12) Elevated LFTs: LFTs are trending downward status post CBD stent placement and cholecyste ctomy Follow-up LFTs in 2 weeks as an outpatient (13) Hypertension: Blood pressures are controlled Continue all home medications as before (14) Obstructive sleep apnea: Does not currently use CPAP (15) Adrenal nodule: Noted incidentally to have an adrenal nodule that is hypervascular on CT abdomen/pelvis-well noted to be stable in size for many years, radiology recommended further work-up for pheochromocytoma if clinically indicated and imaging with MRI of the abdomen as an outpatient She does not seem to have any signs or symptoms of pheochromocytoma Should follow-up with PCP on this. This was described instructions to her to follow-up with PCP. (16) Lumbar disc herniation: Also incidentally noted to have significant L4-L5 disc herniation on CT abdomen/pelvis She does not seem to have any symptoms related to this Follow-up with PCP (17) DVT prophylaxis: SQ heparin Disposition-stable for discharge to home Total Time Total Time Spent Total Time Spent (In Minutes): 35 minutes Total Time Includes: Examination of the Patient, Discharge Planning, Medication Reconciliation and Communication With Other Providers (GI nurse practitioner) Discharge Plan Discharge Items Patient Disposition: Home - Self-Care Reason For Visit: CHOLECYSTITIS Discharge Diagnosis: Cholangitis, Cholecystectomy Klebsiella bacteremia Condition on Discharge: Good Activity: Per Instructions section Activity Comment: light activity for 4 weeks Lifting: No more than 10 pounds Bathing Comment: may shower; no soaking in tubs/pools Sexual Activity: When tolerated Exercise/Sports: Wait until after follow-up appointment Exercise Comment: wait 4 weeks Driving/Machine Use: no driving while taking narcotics for pain Non-emergency contact: Primary Care Provider and Surgeon Call non-emergency contact if: you have any medication questions, your symptoms worsen, your pain is not controlled, your pain is worsening, your pain is concerning for you, you have a fever, your temperature is above 101.5, your wound has increased redness, your wound has increased drainage and your wound pain has increased Follow-up/Referrals: Sean Allen MD, FACS [Physician] - 08/05/20 8:30 am Clint Boo MD [Primary Care Provider] - 08/12/20 1:00 pm (Follow up within 1-2 weeks.) Diet: Carb Consistent or DM2 Addtl Attending Provider Instructions: SPECIAL CARE INSTRUCTIONS: * Cover incisions and change daily for comfort/drainage. * Do not use any NSAIDs i.e. advil, ibuprofen, motrin, naproxen, Aleve for 5 more days due to your biliary stent * Expect some swelling and bruising. Call your doctor if: * Temperature above 101 degrees * Pain not relieved by pain medicine ordered * There is increased drainage or redness from any incision * You have any unanswered questions or concerns [phone]. FOLLOW UP VISIT: If not already scheduled, please call the office for a follow-up visit. For next weeksome suture removal OFFICE PHONE NUMBER: Dr. Allen Office Addtl Lower In Supervisor Provider Instructions: Please finish out the antibiotic called Augmentin for 7 more days for your blood stream infection. You will need repeat ERCP in 6-8 weeks to remove your biliary stent. This will be arranged through [facility]. Please do not take any NSAID or your aspirin or Plavix for 6 more days. You can restart your aspirin and Plavix on 08/04/20. Also, incidentally, you were found to have an adrenal gland nodule which has been stable for many years on imaging, but should be followed up on with your PCP. You were also incidentally noted to have a bulging disc in your back at the L4-5 level which can be followed by your PCP. Pending Studies at Discharge: No Stand-Alone Forms: [facility] Medications and DC Order Prescriptions: New hydrocodone-acetaminophen 5-325 mg tablet 1 - 2 tab PO .q4h- q6h PRN (Reason: pain, for initial therapy, max 6 tabs per day ) Qty: 12 RF: 0 amoxicillin-pot clavulanate [Augmentin] 875-125 mg tablet 1 tab PO BID Qty: 14 RF: 0 Continued indapamide 1.25 mg tablet 1.25 mg PO DAILY Qty: 90 RF: 3 albuterol sulfate 90 mcg/actuation HFA aerosol inhaler 2 inh inhalation Q4H PRN (Reason: shortness of breath or wheezing) Qty: 8.5 RF: 6 glipizide 5 mg tablet extended release 24hr 5 mg PO DAILY Qty: 90 RF: 3 fluocinonide 0.05 % solution 1 applic topical BID PRN (Reason: itching) Qty: 60 RF: 3 atorvastatin 80 mg tablet 80 mg PO DAILY Qty: 90 RF: 3 ezetimibe 10 mg tablet 10 mg PO DAILY Qty: 90 RF: 3 fluoxetine 20 mg capsule 20 mg PO DAILY Qty: 90 RF: 3 losartan 100 mg tablet 100 mg PO DAILY Qty: 90 RF: 3 metoprolol succinate 100 mg tablet extended release 24 hr 100 mg PO DAILY Qty: 90 RF: 3 hydrochlorothiazide 25 mg tablet 25 mg PO DAILY PRN (Reason: SWELLING OR ELEVATED BP) Qty: 30 RF: 0 azelastine 137 mcg (0.1 %) aerosol,spray 1 spray INTNAS BID PRN (Reason: ALLERGY RELIEF) RF: 0 fluticasone propionate 50 mcg/actuation spray,suspension 1 spray intranasal BID PRN (Reason: ALLERGY RELIEF) Qty: 1 RF: 0 mometasone 0.1 % cream 1 applic topical BID PRN (Reason: Skin Irritation) Qty: 1 RF: 0 budesonide-formoterol 160-4.5 mcg/actuation HFA aerosol inhaler 2 inh inhalation BID Qty: 3 RF: 3 lansoprazole 30 mg capsule,delayed release(DR/EC) 30 mg PO DAILY Qty: 90 RF: 3 metformin 500 mg tablet extended release 24 hr 500 mg PO DAILY Qty: 90 RF: 3 nitroglycerin 0.4 mg tablet, sublingual 0.4 mg SL .COMPLEX Qty: 20 RF: 3 clopidogrel 75 mg tablet 75 mg PO DAILY Qty: 90 RF: 3 aspirin 81 mg Tablet,Delayed Release (Dr/Ec) 81 mg PO DAILY RF: 0 Tresiba FlexTouch U-100 100 unit/mL (3 mL) insulin pen 20 unit SQ QPM RF: 0 Victoza 3-Ant 0.6 mg/0.1 mL (18 mg/3 mL) pen injector 1.8 mg subcut QAM RF: 0 calcium carbonate-vitamin D2 600 mg calcium- 200 unit Tablet 1 tab PO QAM RF: 0 Discontinued hydrocodone-homatropine 5-1.5 mg tablet 1 tab PO DAILY PRN (Reason: Cough) Qty: 30 RF: 0 Discharge Orders: Discharge Order (Routine); Ordered 07/29/20 Ordered By: Dary Vann/Other Patient Handouts: Managing Type 2 Diabetes, A1C Admission Data Admit Date/Time: 07/25/20 00:23 Attending Provider: Dary Campos Admit Provider: Roberto Ruggiero Primary Care Provider: Clint Boo Other Providers: Roberto Ruggiero ; Carlotta Colón Other Interventions: Discharge Summary Assessment (RN) Last Done: 07/29/20 13:50 Coding Level of Care Code D/C Day Management >30 mins Diagnoses Acute cholecystitis K81.0 Choledocholithiasis K80.50 Bacteremia R78.81 Common bile duct dilatation K83.8 CKD (chronic kidney disease), stage III N18.3 CAD (coronary artery disease) I25.10 Type 2 diabetes mellitus E11.9 Acid reflux K21.9 Asthma J45.909 Dyslipidemia E78.5 Depression F32.9 Elevated LFTs R79.89 Hypertension I10 Obstructive sleep apnea G47.33 Adrenal nodule E27.8 Lumbar disc herniation M51.26 DVT prophylaxis Z29.9
== END 2020-07-29 16:32 | disposition home or self-care (01) | DRG 418 ==
LOC: ED 19:02 → 3N 07-25 00:23 → SUATTDRO 07-25 00:23 → 3N 07-25 04:02